=== PATIENT | female | born 1970 | race African-American/Black ===

== ENCOUNTER → 2017-10-03 | Emergency (ER) | payer MEDICAID, OTHER ==
[~2017-10-03] VITALS: Ht 162.6 cm; Wt 90.7 kg
[~2017-10-03] MED LIST: OCUFLOX5 ML OP; [UNRECOGNIZED DRUG - OTHER] OP
[2017-10-03 15:03] VITALS: BP 102/75
[2017-10-03 15:28] VITALS: BP 102/75
--- NOTE | 2017-10-03 22:55 | Emergency Room Report ---
History of Present Illness General Chief Complaint: Eye Problems Source: Patient Present Illness HPI 47 YO Female presents to the ED c/o : Bilateral eye redness, discharge, and increased lacrimation x 2days. Denies loss of vision, visual changes, floaters. Patient reports some mild photophobia. Patient reports having her eyes stuck shut in the mornings when she awakens. She denies recent upper respiratory illness, nasal congestion, fevers, chills, eye trauma or foreign body sensation. She denies contact lens use she states she does use glasses. Denies CP, Palpitations, LOC, AMS, dizziness, Changes in Vision, Sensation, paresthesias, or a sudden severe headache. Allergies: Coded Allergies: PENICILLINS (Verified Allergy, Severe, Rash, 10/03/17) SULFA (SULFONAMIDE ANTIBIOTICS) (Verified Allergy, Severe, Rash, 10/03/17) Patient History Past Medical History: see triage record Past Surgical History: none Pertinent Family History: none Last Menstrual Period: 11-5 Now: No Reviewed Nursing Documentation: PMH: Agreed, PSxH: Agreed Nursing Documentation-PMH Past Medical History: No History, Except For Review of Systems All Other Systems: negative except mentioned in HPI Physical Exam Vital Signs Date Time Temp Pulse Resp B/P (MAP) Pulse Ox O2 Delivery O2 Flow Rate FiO2 10/03/17 14:42 98.1 72 18 102/75 99 Room Air Sp02 EP Interpretation: reviewed, normal General Appearance: no apparent distress, alert, GCS 15, non-toxic Head: normocephalic, atraumatic Eyes: bilateral eye normal inspection, bilateral eye PERRL, bilateral eye EOMI , bilateral eye visual acuity - 20/10, bilateral eye other - purulent d/c with erythema ENT: hearing grossly normal, normal voice Neck: full range of motion, supple/symm/no masses Respiratory: lungs clear, normal breath sounds, speaking full sentences Cardiovascular #1: regular rate, rhythm Musculoskeletal: back normal, gait/station normal, normal range of motion, non- tender Neurologic: alert, oriented x3, responsive, motor strength/tone normal, sensory intact, speech normal Skin: normal color, no rash, warm/dry, well hydrated Lymphatic: no adenopathy Medical Decision Making PA Attestation Dr. Whalen is my supervising Physician whom patient management has been discussed with. Diagnostic Impression: Primary Impression: Bacterial conjunctivitis of both eyes ER Course Pt. presents to the ED c/o : Bilateral eye redness, discharge, and increased lacrimation x 2days Ddx considered but are not limited to: corneal abrasion, acute glaucoma, globe rupture, FB, Corneal Ulcer, conjunctivitis. Iridis, orbital cellulitis,keratitis , sinusitis Vital signs: are WNL, pt. is afebrile H&PE are most consistent with: bacterial conjunctivitis ORDERS: none at this time. ED INTERVENTIONS: none at this time. DISCHARGE: At this time pt. is stable for d/c to home. Will provide printed patient care instructions, and any necessary prescriptions. Care plan and follow up instructions have been discussed with the patient prior to discharge. Last Vital Signs Date Time Temp Pulse Resp B/P (MAP) Pulse Ox O2 Delivery O2 Flow Rate FiO2 10/03/17 15:28 98.1 18 102/75 99 Room Air 10/03/17 14:42 72 Disposition: HOME, SELF-CARE Condition: Stable Scripts Tetrahydrz/Dext 70/Peg 400/Pvp (Visine Advanced Eye Drop) 15 Ml Drops 1 ML OP TID, #15 ML Prov: Kary Saul 10/03/17 Ofloxacin (OCUFLOX) 5 Ml Drops 2 ML OP TID, #5 ML Prov: Kary Saul 10/03/17 Referrals: RUFUS JACQUES,REFERRING (PCP) Departure Forms: Return to Work Return to Work Date: Oct 07, 2017 Work Restrictions: None Return to Full Activity: Oct 07, 2017 Patient Instructions: Bacterial Conjunctivitis Additional Instructions: Take medications as directed. Follow up with an Opthalmologist in 3-5 days, even if your symptoms have resolved. --Please review list of primary care clinics, if you do not already have a primary care provider Return sooner to ED if new symptoms occur, or current symptoms become worse. - Please note that this Emergency Department Report was dictated using BitAccess[employer] technology software, occasionally this can lead to erroneous entry secondary to interpretation by the dictation equipment. Kary Saul Oct 03, 2017 22:55
== END | disposition home or self-care (01) ==
LOC: EMR 14:52
DX: H10.9 Unspecified conjunctivitis (principal); B96.89 Other specified bacterial agents as the cause of diseases classified elsewhere; Z88.0 Allergy status to penicillin; Z88.2 Allergy status to sulfonamides
CPT/HCPCS: 99284

== ENCOUNTER 2018-07-05 19:24 | Emergency (ER) | payer MEDICAID ==
[~2018-07-05] VITALS: Ht 162.6 cm; Wt 93.0 kg
[2018-07-05 21:04] LABS: APPEARANCE,URINE CLEAR; BILIRUBIN, URINE NEGATIVE (NEGATIVE); GLUCOSE, URINE (UA) NEGATIVE (NEGATIVE); KETONES,URINE 1+ (NEGATIVE); LEUKOCYTE ESTERASE ,URINE 1+ (NEGATIVE); NITRITE,URINE NEGATIVE (NEGATIVE); PH,URINE 5 (4.5-8.0); PROTEIN,URINE 1+ (NEGATIVE); UROBILINOGEN,URINE 1 MG/DL (0.0-1.0)
[2018-07-05 21:05] LABS: COLOR,URINE YELLOW
[2018-07-05 22:17] LABS: BASOPHILS % (AUTO) 2.1 % (0.0-2.0); EOSINOPHILS % (AUTO) 4.2 % (0.0-3.0); HEMATOCRIT 36.6 % (37.0-47.0); HEMOGLOBIN 11.6 G/DL (12.0-16.0); LYMPHOCYTES % (AUTO) 50.8 % (20.0-45.0); MEAN CORPUSCULAR VOLUME 72 FL (80-99); PLATELET COUNT 266 K/UL (150-450); RED BLOOD COUNT 5.06 M/UL (4.20-5.40); RED CELL DISTRIBUTION WIDTH 12.2 % (11.6-14.8); WHITE BLOOD COUNT 8.3 K/UL (4.8-10.8)
[2018-07-05 22:22] LABS: ANION GAP 7 mmol/L (5-15); BLOOD UREA NITROGEN 10 mg/dL (7-18); CALCIUM 9.4 MG/DL (8.5-10.1); CARBON DIOXIDE 27 MMOL/L (21-32); CHLORIDE 104 MMOL/L (98-107); POTASSIUM 4.2 MMOL/L (3.5-5.1); SODIUM 138 MMOL/L (136-145)
[2018-07-05 22:30] LABS: ALANINE AMINOTRANSFERASE 27 U/L (12-78); ALBUMIN 3.6 G/DL (3.4-5.0); ALBUMIN/GLOBULIN RATIO 0.8 (1.0-2.7); ALKALINE PHOSPHATASE 112 U/L (46-116); ASPARTATE AMINO TRANSFERASE 16 U/L (15-37); BILIRUBIN,TOTAL 0.3 MG/DL (0.2-1.0)
--- NOTE | 2018-07-05 22:30 | Emergency Room Report ---
History of Present Illness General Chief Complaint: Female Urogenital Problems Source: Patient Present Illness HPI Patient presents with abnormal vaginal bleeding. This for at least 2 months. Mostly it has been spotting. Occasionally bleeding slightly more heavy. No clots. No fevers. Unsure if . Has sweats occasionally at night. No documented fevers. No dysuria. She's had some lower abdominal cramping. Pain rated 4/10, mostly constant. No dysuria. Had pelvic by nurse practitioner March. Was told everything "normal". Seen by her clinic and sent here to exclude symptomatic anemia. No MEDINA, headaches, dizziness, chest pain. 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 Period: 06/16 Reviewed Nursing Documentation: PMH: Agreed; PSxH: Agreed Nursing Documentation-PMH Past Medical History: No Stated History Review of Systems All Other Systems: negative except mentioned in HPI Physical Exam Vital Signs Date Time Temp Pulse Resp B/P (MAP) Pulse Ox O2 Delivery O2 Flow Rate FiO2 07/05/18 19:49 99.1 65 16 111/72 98 Room Air 99.1 Sp02 EP Interpretation: reviewed, normal General Appearance: well appearing, no apparent distress, GCS 15 Eyes: right eye other - post surgical changes ENT: moist mucus membranes Neck: supple Respiratory: lungs clear, normal breath sounds Cardiovascular #1: regular rate, rhythm Cardiovascular #2: 2+ radial (R) Gastrointestinal: soft, no mass, no guarding, no rebound, tenderness - reported Genitourinary: no CVA tenderness, deferred - for ultrasound Musculoskeletal: back normal, digits/nails normal, gait/station normal, normal range of motion Neurologic: oriented x3, grossly normal - except for R eye Psychiatric: mood/affect normal Skin: normal color, no rash, warm/dry Medical Decision Making Diagnostic Impression: Primary Impression: DUB (dysfunctional uterine bleeding) Additional Impression: Fibroids Qualified Codes: D25.9 - Leiomyoma of uterus, unspecified ER Course Patient with abnormal vaginal bleeding and lower abdominal pain for 2 months. DDx: , ectopic, DUB, fibroid, tumor, UTI amongst others. Evaluation with labs. Initial consideration for pelvic, then decision for ultrasound as would be more diagnostic. Treatment with tylenol. Preg neg. Slight anemia (microcytic indices). CMP, UA, coags normal. Ultrasound with multiple fibroids. Patient improved. Discussed findings and need to follow up with her [facility]. Patient stable for outpatient observation and treatment. Laboratory Tests Test 07/05/18 20:41 07/05/18 21:50 Urine Color Yellow Urine Appearance Clear Urine pH 5 (4.5-8.0) Urine Specific [place] 1.020 (1.005-1.035) Urine Protein 1+ (NEGATIVE) H Urine Glucose (UA) Negative (NEGATIVE) Urine Ketones 1+ (NEGATIVE) H Urine Blood 5+ (NEGATIVE) H Urine Nitrite Negative (NEGATIVE) Urine Bilirubin Negative (NEGATIVE) Urine Urobilinogen 1 MG/DL (0.0-1.0) H Urine Leukocyte Esterase 1+ (NEGATIVE) H Urine RBC 0-2 /HPF (0 - 2) Urine WBC 2-4 /HPF (0 - 2) Urine Squamous Epithelial Cells Few /LPF (NONE/OCC) Urine Bacteria Few /HPF (NONE) Urine HCG, Qualitative Negative (NEGATIVE) White Blood Count 8.3 K/UL (4.8-10.8) Red Blood Count 5.06 M/UL (4.20-5.40) Hemoglobin 11.6 G/DL (12.0-16.0) L Hematocrit 36.6 % (37.0-47.0) L Mean Corpuscular Volume 72 FL (80-99) L Mean Corpuscular Hemoglobin 22.8 PG (27.0-31.0) L Mean Corpuscular Hemoglobin Concent 31.6 G/DL (32.0-36.0) L Red Cell Distribution Width 12.2 % (11.6-14.8) Platelet Count 266 K/UL (150-450) Mean Platelet Volume 10.0 FL (6.5-10.1) Neutrophils (%) (Auto) 38.0 % (45.0-75.0) L Lymphocytes (%) (Auto) 50.8 % (20.0-45.0) H Monocytes (%) (Auto) 5.0 % (1.0-10.0) Eosinophils (%) (Auto) 4.2 % (0.0-3.0) H Basophils (%) (Auto) 2.1 % (0.0-2.0) H Prothrombin Time 10.4 SEC (9.30-11.50) Prothrombin Time INR 1.0 (0.9-1.1) PTT 33 SEC (23-33) Sodium Level 138 MMOL/L (136-145) Potassium Level 4.2 MMOL/L (3.5-5.1) Chloride Level 104 MMOL/L (98-107) Carbon Dioxide Level 27 MMOL/L (21-32) Anion Gap 7 mmol/L (5-15) Blood Urea Nitrogen 10 mg/dL (7-18) Creatinine 1.0 MG/DL (0.55-1.30) Estimate Glomerular Filtration Rate > 60 mL/min (>60) Glucose Level 99 MG/DL (74-106) Calcium Level 9.4 MG/DL (8.5-10.1) Total Bilirubin 0.3 MG/DL (0.2-1.0) Aspartate Amino Transferase (AST) 16 U/L (15-37) Alanine Aminotransferase (ALT) 27 U/L (12-78) Alkaline Phosphatase 112 U/L (46-116) Total Protein 8.0 G/DL (6.4-8.2) Albumin 3.6 G/DL (3.4-5.0) Globulin 4.4 g/dL Albumin/Globulin Ratio 0.8 (1.0-2.7) L Lipase 137 U/L (73-393) Last Vital Signs Date Time Temp Pulse Resp B/P (MAP) Pulse Ox O2 Delivery O2 Flow Rate FiO2 07/05/18 23:15 98.9 72 16 110/71 98 Room Air 98.9 Status: improved Disposition: HOME, SELF-CARE Condition: Improved Referrals: RUFUS JACQUESREFERRING (PCP) Hair Marie M.D. Jul 05, 2018 22:29
[2018-07-05 23:05] VITALS: BP 110/71
[2018-07-05 23:15] VITALS: BP 110/71
--- NOTE | 2018-07-06 08:48 | Diagnostic Imaging Report ---
Indication: Pelvic pain, negative urine test Technique: Transabdominal and transvaginal images Comparison: none Findings: Uterus measures 10.6 cm length by 5.5 cm AP. The endometrium measures 7 mm thick. Multiple fibroids are seen within the myometrium, measuring up to 3.5 cm in diameter. Small nabothian cysts are seen in the cervix. The left ovary measures 2.6 cm in length. The right ovary measures 3 cm in length. Impression: Multiple uterine fibroids Otherwise unremarkable This agrees with the preliminary interpretation provided overnight by [facility] teleradiology service.
== END 2018-07-05 23:10 | disposition home or self-care (01) ==
LOC: EMR 21:09
DX: N93.8 Other specified abnormal uterine and vaginal bleeding (principal); D25.9 Leiomyoma of uterus, unspecified
CPT/HCPCS: 36415; 76830; 76856; 80053; 81003; 81025; 83690; 85025; 85610; 85730; 86850; 86900; 86901; 99284

== ENCOUNTER 2019-06-07 13:16 | Emergency (ER) | payer MEDICAID ==
[~2019-06-07] VITALS: Ht 162.6 cm; Wt 95.3 kg
--- NOTE | 2019-06-07 13:20 | NUR ---
ED Nurse Note: pt walked in due to dizziness and almost syncope, pt stated she is been having her menstruation since 25 days ago and still ahs it now. pt denies pain. will continue to monitor.
[2019-06-07 13:40] VITALS: BP 110/74
--- NOTE | 2019-06-07 14:20 | NUR ---
ED Nurse Note: pt able to give urine sample, iv stablished on the right ac, blood drawn and was sent to lab. will continue to monitor
--- NOTE | 2019-06-07 14:25 | NUR ---
ED Nurse Note: xray on bedside
[2019-06-07 14:43] LABS: APPEARANCE,URINE CLEAR; BILIRUBIN, URINE NEGATIVE (NEGATIVE); COLOR,URINE PALE YELLOW; GLUCOSE, URINE (UA) NEGATIVE (NEGATIVE); KETONES,URINE NEGATIVE (NEGATIVE); LEUKOCYTE ESTERASE ,URINE NEGATIVE (NEGATIVE); NITRITE,URINE NEGATIVE (NEGATIVE); PH,URINE 5 (4.5-8.0); PROTEIN,URINE NEGATIVE (NEGATIVE); UROBILINOGEN,URINE NORMAL MG/DL (0.0-1.0)
--- NOTE | 2019-06-07 14:46 | Diagnostic Imaging Report ---
Indication: Abdominal pain Technique: One view of the chest Comparison: none Findings: Lungs and pleural spaces are clear. Heart size is normal. Impression: No acute process
[2019-06-07 14:53] LABS: ANION GAP 8 mmol/L (5-15); BASOPHILS % (AUTO) 1.5 % (0.0-2.0); BLOOD UREA NITROGEN 5 mg/dL (7-18); CALCIUM 9.2 MG/DL (8.5-10.1); CARBON DIOXIDE 26 MMOL/L (21-32); CHLORIDE 105 MMOL/L (98-107); EOSINOPHILS % (AUTO) 1.4 % (0.0-3.0); HEMATOCRIT 27.7 % (37.0-47.0); HEMOGLOBIN 8.3 G/DL (12.0-16.0); LYMPHOCYTES % (AUTO) 40.9 % (20.0-45.0); MEAN CORPUSCULAR VOLUME 65 FL (80-99); MONOCYTES % (AUTO) 4.8 % (1.0-10.0); NEUTROPHILS % (AUTO) 51.4 % (45.0-75.0); PLATELET COUNT 309 K/UL (150-450); POTASSIUM 4.2 MMOL/L (3.5-5.1); RED BLOOD COUNT 4.23 M/UL (4.20-5.40); SODIUM 138 MMOL/L (136-145)
[2019-06-07 14:55] LABS: INR 0.9 (0.9-1.1)
[2019-06-07 14:58] LABS: ALANINE AMINOTRANSFERASE 11 U/L (12-78); ALBUMIN 3.5 G/DL (3.4-5.0); ALBUMIN/GLOBULIN RATIO 0.9 (1.0-2.7); ALKALINE PHOSPHATASE 110 U/L (46-116); ASPARTATE AMINO TRANSFERASE 14 U/L (15-37); BILIRUBIN,TOTAL 0.4 MG/DL (0.2-1.0)
--- NOTE | 2019-06-07 15:25 | Emergency Room Report ---
History of Present Illness General Chief Complaint: Female Urogenital Problems Source: Patient Present Illness HPI This patient states she has a history of fibroids. She states that she was offered a hysterectomy versus an ablation. She states she was unable to make a decision and did not get anything done. She has a long history of heavy bleeding related to fibroids. She states that she has had ongoing bleeding for the past month. She states over the past week she has felt very fatigued and has had less exercise tolerance. She states that she had 2 episodes of chest pain with shortness of breath. She states one episode was last week and one episode was yesterday. She denies recent illness. She denies fever chills. She denies nausea or vomiting. She has no other complaints. Allergies: Coded Allergies: PENICILLINS (Verified Allergy, Severe, Rash, 10/03/17) SULFA (SULFONAMIDE ANTIBIOTICS) (Verified Allergy, Severe, Rash, 10/03/17) Patient History Past Medical History: see triage record, other - uterine fibroids. Social History: Denies: smoking, alcohol use, drug use Last Menstrual Period: 05/11/19 Reviewed Nursing Documentation: PMH: Agreed; PSxH: Agreed Nursing Documentation-PMH Past Medical History: No History, Except For Review of Systems All Other Systems: negative except mentioned in HPI Physical Exam Vital Signs Date Time Temp Pulse Resp B/P (MAP) Pulse Ox O2 Delivery O2 Flow Rate FiO2 06/07/19 13:29 97.5 63 17 110/74 (86) 100 Room Air Sp02 EP Interpretation: reviewed, normal General Appearance: no apparent distress, alert, GCS 15, non-toxic Head: normocephalic, atraumatic Eyes: bilateral eye conjunctivae pale ENT: hearing grossly normal, normal pharynx, no angioedema, normal voice Neck: full range of motion, supple/symm/no masses Respiratory: chest non-tender, lungs clear, normal breath sounds, no respiratory distress, no retraction, no accessory muscle use, speaking full sentences Cardiovascular #1: regular rate, rhythm, no edema Gastrointestinal: normal bowel sounds, non tender, soft, non-distended, no guarding, no rebound Rectal: deferred Musculoskeletal: back normal, gait/station normal, normal range of motion, non- tender Neurologic: alert, oriented x3, responsive, motor strength/tone normal, sensory intact, speech normal Psychiatric: judgement/insight normal, memory normal, mood/affect normal, no suicidal/homicidal ideation Skin: no rash, well hydrated Medical Decision Making Diagnostic Impression: Primary Impression: DUB (dysfunctional uterine bleeding) Additional Impressions: Fibroids Anemia ER Course This patient has known dysfunctional uterine bleeding related to fibroids. She is anemic. She is borderline hemoglobin/hematocrit for blood transfusion. Given the ongoing bleeding, I felt that this patient will likely continue to become more anemic and so I did offer this patient blood transfusion but she declined at this time. I did instruct the patient to obtain [id number] iron and vitamin C. She was also instructed to follow-up with her [facility] physician for definitive treatment of her bleeding fibroids. She is not currently actively bleeding and there was no evidence of cardiac ischemia or ME. Overall, the patient's evaluation was benign. The patient is given close return precautions and follow-up instructions. Laboratory Tests Test 06/07/19 14:18 White Blood Count 8.0 K/UL (4.8-10.8) Red Blood Count 4.23 M/UL (4.20-5.40) Hemoglobin 8.3 G/DL (12.0-16.0) L Hematocrit 27.7 % (37.0-47.0) L Mean Corpuscular Volume 65 FL (80-99) L Mean Corpuscular Hemoglobin 19.7 PG (27.0-31.0) L Mean Corpuscular Hemoglobin Concent 30.1 G/DL (32.0-36.0) L Red Cell Distribution Width 15.0 % (11.6-14.8) H Platelet Count 309 K/UL (150-450) Mean Platelet Volume 8.4 FL (6.5-10.1) Neutrophils (%) (Auto) 51.4 % (45.0-75.0) Lymphocytes (%) (Auto) 40.9 % (20.0-45.0) Monocytes (%) (Auto) 4.8 % (1.0-10.0) Eosinophils (%) (Auto) 1.4 % (0.0-3.0) Basophils (%) (Auto) 1.5 % (0.0-2.0) Prothrombin Time 10.1 SEC (9.30-11.50) Prothrombin Time INR 0.9 (0.9-1.1) PTT 31 SEC (23-33) Urine Color Pale yellow Urine Appearance Clear Urine pH 5 (4.5-8.0) Urine Specific [place] 1.025 (1.005-1.035) Urine Protein Negative (NEGATIVE) Urine Glucose (UA) Negative (NEGATIVE) Urine Ketones Negative (NEGATIVE) Urine Blood Negative (NEGATIVE) Urine Nitrite Negative (NEGATIVE) Urine Bilirubin Negative (NEGATIVE) Urine Urobilinogen Normal MG/DL (0.0-1.0) Urine Leukocyte Esterase Negative (NEGATIVE) Urine HCG, Qualitative Negative (NEGATIVE) Sodium Level 138 MMOL/L (136-145) Potassium Level 4.2 MMOL/L (3.5-5.1) Chloride Level 105 MMOL/L (98-107) Carbon Dioxide Level 26 MMOL/L (21-32) Anion Gap 8 mmol/L (5-15) Blood Urea Nitrogen 5 mg/dL (7-18) L Creatinine 1.0 MG/DL (0.55-1.30) Estimate Glomerular Filtration Rate > 60 mL/min (>60) Glucose Level 86 MG/DL (74-106) Calcium Level 9.2 MG/DL (8.5-10.1) Total Bilirubin 0.4 MG/DL (0.2-1.0) Aspartate Amino Transferase (AST) 14 U/L (15-37) L Alanine Aminotransferase (ALT) 11 U/L (12-78) L Alkaline Phosphatase 110 U/L (46-116) Troponin I 0.000 ng/mL (0.000-0.056) Total Protein 7.3 G/DL (6.4-8.2) Albumin 3.5 G/DL (3.4-5.0) Globulin 3.8 g/dL Albumin/Globulin Ratio 0.9 (1.0-2.7) L Lipase 108 U/L (73-393) EKG Diagnostic Results Rate: bradycardiac Rhythm: other - S.madonna ST Segments: no acute changes Rhythm Strip Diag. Results EP Interpretation: yes Rate: 50's Rhythm: no PVC's, no ectopy, other - S.madonna Chest X-Ray Diagnostic Results Chest X-Ray Diagnostic Results : Chest X-Ray Ordered: Yes # of Views/Limited/Complete: 1 View Indication: Chest Pain EP Interpretation: Yes Interpretation: no consolidation, no effusion, no pneumothorax, no acute cardiopulmonary disease Impression: No acute disease Electronically Signed by: Coni Anderson DO Last Vital Signs Date Time Temp Pulse Resp B/P (MAP) Pulse Ox O2 Delivery O2 Flow Rate FiO2 06/07/19 13:29 97.5 63 17 110/74 (86) 100 Room Air Status: improved Disposition: HOME, SELF-CARE Condition: Improved Coni Anderson DO Jun 07, 2019 15:25
[2019-06-07 15:44] VITALS: BP 110/74
--- NOTE | 2019-06-07 15:44 | NUR ---
ER DISCHARGE NOTE: Patient is cleared to be discharged per ERMD, pt is aox4, on room air, with stable vital signs. pt was given dc and prescription instructions, pt was able to verbalize understanding, pt id band and iv site removed without complications. pt is able to ambulate with steady gait. pt took all belongings.
--- NOTE | 2019-06-08 13:27 | Cardiology Report ---
APPROVED REPORT EKG Measurement Heart [id number] Sinus bradycardia Low voltage QRS Cannot rule out Anterior infarct, age undetermined Abnormal ECG
== END 2019-06-07 15:44 | disposition home or self-care (01) ==
LOC: EMR 14:32
DX: N93.8 Other specified abnormal uterine and vaginal bleeding (principal); D25.9 Leiomyoma of uterus, unspecified; D64.9 Anemia, unspecified; Z88.0 Allergy status to penicillin; Z88.2 Allergy status to sulfonamides
CPT/HCPCS: 36415; 71045; 80053; 81003; 81025; 83690; 84484; 85025; 85610; 85730; 86850; 86900; 86901; 93005; 99283

== ENCOUNTER 2021-01-13 00:03 | Inpatient (IN) | payer MEDICAID ==
[2021-01-13] VITALS (10 sets, daily range): BP systolic 95–120; BP diastolic 51–85
[~2021-01-13] VITALS: Ht 162.6 cm; Wt 76.7 kg
--- NOTE | 2021-01-13 00:42 | Emergency Room Report ---
History of Present Illness General Chief Complaint: General Complaint Source: Patient Present Illness HPI Disclaimer: Please note that this report is being documented using DRAGON technology. This can lead to erroneous entry secondary to incorrect interpretation by the dictating instrument. HPI: 50-year-old female presents for weakness and hematuria. Patient reports she has a history of uterine fibroids since 2018. No longer follows with OPTOMETRY TEACHER. States she discussed ablation and hysterectomy at one point but did not follow-up on this. History of recurrent anemia as well requiring transfusions. She was at [facility] last month requiring transfusion for low hemoglobin reportedly 3.9. She reports several days of hematuria with mild dysuria. Denies vaginal bleeding otherwise. Not taking the prescribed iron supplements. She was taking medroxyprogesterone after her last ER visit. She reports generalized weakness and sometimes rapid heart rate when rising from a seated position or taking long walks. Denies chest pain, shortness of breath, nausea, vomiting, diarrhea, melena or hematochezia. Denies fever or chills. 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 Patient History Last Menstrual Period: n/a Nursing Documentation-PMH Past Medical History: No History, Except For Review of Systems All Other Systems: negative except mentioned in HPI Physical Exam Vital Signs Date Time Temp Pulse Resp B/P (MAP) Pulse Ox O2 Delivery O2 Flow Rate FiO2 01/13/21 00:12 97.9 86 18 85/49 (61) 98 Room Air General: Awake and alert, no acute distress HEENT: NC/AT. EOMI. Cardiovascular: RRR. S1 and S2 normal. No murmur appreciated Resp: Normal work of breathing. No cough, wheezing or crackles appreciated Abdomen: Abdomen is soft, nondistended. Nontender Rectal: No external hemorrhoids, no palpable internal hemorrhoids. No melena, no bright blood. Firm stool in vault. Skin: Intact. No abrasions, laceration or rash over the exposed skin MSK: Normal tone and bulk. Moving all extremities. No obvious deformity. Neuro: Awake and alert. Mentating appropriately. Procedures Critical Care Time Critical Care Time Total critical care time: Approximately 45 minutes Due to a high probability of clinically significant, life threatening deterioration, the patient required the highest level of preparedness to intervene emergently and I personally spent this critical care time directly and personally managing the patient. This critical care time included obtaining a history, examining the patient, pulse oximetry, ordering and reviewing studies, ordering treatments, evaluating response to treatment and updating management plan as needed, frequent reassessment and discussion with other providers as well as arranging for ultimate disposition. This critical to care time was performed to assess and manage the high probability of life-threatening deterioration that could result in multiorgan failure. This critical care time is separate from the separately billable procedures and treating other patients. Medical Decision Making Diagnostic Impression: Primary Impression: Anemia Additional Impressions: UTI (urinary tract infection) Hypokalemia ER Course 50-year-old female history of uterine fibroids presents for weakness and hematuria. Differential includes was not limited to symptomatic anemia, dysfunctional uterine bleeding, UTI, GI bleed among others. Hemoglobin returned critically low at 5.4. Potassium also low at 2.7. Patient will be transfused and given IV and oral potassium. Also require ceftriaxone for urinary tract infection. Troponin negative. FOBT negative. Patient is capitated to [facility]. Accepted by Dr. Valentin. Patient antibody screen returned positive. Deemed unstable for transfer by capitated facility as we could not begin transfusion prior to transfer and therefore patient is approved for admission here. IV and oral potassium as well as Rocephin have been given. Admitted to panel physician, Dr. Garcia Laboratory Tests Test 01/13/21 00:29 01/13/21 01:07 White Blood Count 13.5 K/UL (4.8-10.8) H Red Blood Count 3.55 M/UL (4.20-5.40) L Hemoglobin 5.4 G/DL (12.0-16.0) *L Hematocrit 19.0 % (37.0-47.0) L Mean Corpuscular Volume 53 FL (80-99) L Mean Corpuscular Hemoglobin 15.1 PG (27.0-31.0) L Mean Corpuscular Hemoglobin Concent 28.3 G/DL (32.0-36.0) L Red Cell Distribution Width 26.8 % (11.6-14.8) H Platelet Count 428 K/UL (150-450) Mean Platelet Volume 9.8 FL (6.5-10.1) Neutrophils (%) (Auto) % (45.0-75.0) Lymphocytes (%) (Auto) % (20.0-45.0) Monocytes (%) (Auto) % (1.0-10.0) Eosinophils (%) (Auto) % (0.0-3.0) Basophils (%) (Auto) % (0.0-2.0) Prothrombin Time 10.7 SEC (9.30-11.50) Prothrombin Time INR 1.0 (0.9-1.1) Activated Partial Thromboplast Time 27 SEC (23-33) Sodium Level 140 MMOL/L (136-145) Potassium Level 2.7 MMOL/L (3.5-5.1) *L Chloride Level 104 MMOL/L (98-107) Carbon Dioxide Level 21 MMOL/L (21-32) Anion Gap 14 mmol/L (5-15) Blood Urea Nitrogen 14 mg/dL (7-18) Creatinine 1.9 MG/DL (0.55-1.30) H Estimated Glomerular Filtration Rate 34.1 mL/min (>60) Glucose Level 124 MG/DL (74-106) H Calcium Level 8.9 MG/DL (8.5-10.1) Iron Level Pending Unsaturated Iron Binding Pending Total Bilirubin 1.9 MG/DL (0.2-1.0) H Direct Bilirubin 0.5 MG/DL (0.0-0.3) H Aspartate Amino Transferase (AST) 63 U/L (15-37) H Alanine Aminotransferase (ALT) 28 U/L (12-78) Alkaline Phosphatase 78 U/L (46-116) Troponin I 0.000 ng/mL (0.000-0.056) Total Protein 8.3 G/DL (6.4-8.2) H Albumin 3.7 G/DL (3.4-5.0) Globulin 4.6 g/dL Albumin/Globulin Ratio 0.8 (1.0-2.7) L Urine Color Valerie Urine Appearance Cloudy Urine pH 5 (4.5-8.0) Urine Specific [place] 1.015 (1.005-1.035) Urine Protein 3+ (NEGATIVE) H Urine Glucose (UA) Negative (NEGATIVE) Urine Ketones 2+ (NEGATIVE) H Urine Blood 5+ (NEGATIVE) H Urine Nitrite Positive (NEGATIVE) H Urine Bilirubin 1+ (NEGATIVE) H Urine Ictotest Positive (NEGATIVE) Urine Urobilinogen 4 MG/DL (0.0-1.0) H Urine Leukocyte Esterase 2+ (NEGATIVE) H Urine RBC 30-40 /HPF (0 - 2) H Urine WBC 20-30 /HPF (0 - 2) H Urine Squamous Epithelial Cells Many /LPF (NONE/OCC) H Urine Amorphous Sediment Many /LPF (NONE) H Urine Bacteria Many /HPF (NONE) H Urine HCG, Qualitative Negative (NEGATIVE) Stool Occult Blood Negative (NEGATIVE) EKG Diagnostic Results Troponin ordered: Yes When was troponin ordered?: Jan 13, 2021 EKG Time: 00:22 Rate: normal Rhythm: NSR ST Segments: no acute changes Other Impression Sinus rhythm, normal axis, normal intervals, no ST segment changes. Rhythm Strip Diag. Results Rhythm Strip Time: 00:22 EP Interpretation: yes Rate: 70s Rhythm: NSR, no PVC's, no ectopy Last Vital Signs Date Time Temp Pulse Resp B/P (MAP) Pulse Ox O2 Delivery O2 Flow Rate FiO2 01/13/21 00:35 97.9 18 100/74 98 Room Air 01/13/21 00:35 86 Disposition: ADMITTED INPATIENT Condition: Stable Referrals: NON PHYSICIAN (PCP) Larry De Luna MD Jan 13, 2021 00:42
[2021-01-13 00:50] LABS: MEAN CORPUSCULAR VOLUME 53 FL (80-99); PLATELET COUNT 428 K/UL (150-450); RED BLOOD COUNT 3.55 M/UL (4.20-5.40); RED CELL DISTRIBUTION WIDTH 26.8 % (11.6-14.8); WHITE BLOOD COUNT 13.5 K/UL (4.8-10.8)
[2021-01-13 00:54] LABS: HEMOGLOBIN 5.4 G/DL (12.0-16.0)
[2021-01-13 01:42] LABS: APPEARANCE,URINE CLOUDY; BILIRUBIN, URINE 1+ (NEGATIVE); COLOR,URINE AMBER; GLUCOSE, URINE (UA) NEGATIVE (NEGATIVE); KETONES,URINE 2+ (NEGATIVE); LEUKOCYTE ESTERASE ,URINE 2+ (NEGATIVE); NITRITE,URINE POSITIVE (NEGATIVE); PH,URINE 5 (4.5-8.0); PROTEIN,URINE 3+ (NEGATIVE); UROBILINOGEN,URINE 4 MG/DL (0.0-1.0)
[2021-01-13 01:43] LABS: ALBUMIN 3.7 G/DL (3.4-5.0); ALBUMIN/GLOBULIN RATIO 0.8 (1.0-2.7); BILIRUBIN,TOTAL 1.9 MG/DL (0.2-1.0); CALCIUM 8.9 MG/DL (8.5-10.1); CREATININE 1.9 MG/DL (0.55-1.30)
[2021-01-13 01:45] LABS: POTASSIUM 2.7 MMOL/L (3.5-5.1)
[2021-01-13] MEDS ORDERED: cefTRIAXone 1 GM in NS 55 ML IVPB ONE (01:45)
[2021-01-13 01:46] LABS: BILIRUBIN,DIRECT 0.5 MG/DL (0.0-0.3)
[2021-01-13 01:58] LABS: % IRON SATURATION 33 % (15-50); IRON 119 ug/dL (50-175); TOTAL IRON BINDING CAPACITY 359 ug/dL (250-450)
--- NOTE | 2021-01-13 06:23 | Consultation ---
History of Present Illness General Chief Complaint: General Complaint Present Illness Allergies: Coded Allergies: PENICILLINS (Verified Allergy, Severe, Rash, 10/03/17) SULFA (SULFONAMIDE ANTIBIOTICS) (Verified Allergy, Severe, Rash, 10/03/17) Medication History Scheduled Ofloxacin (Ocuflox), 2 ML OP TID Tetrahydrz/Dext 70/Peg 400/Pvp (Visine Advanced Eye Drop), 1 ML OP TID Patient History Healthcare decision maker Resuscitation status Advanced Directive on File Physical Exam Last 24 Hour Vital Signs Date Time Temp Pulse Resp B/P (MAP) Pulse Ox O2 Delivery O2 Flow Rate FiO2 01/13/21 05:05 Room Air 01/13/21 04:21 97.9 86 16 98/61 100 Room Air 01/13/21 03:25 97.9 18 107/60 100 Room Air 01/13/21 02:09 97.9 18 106/64 98 Room Air 01/13/21 01:08 97.9 18 100/61 98 Room Air 01/13/21 00:35 97.9 18 100/74 98 Room Air 01/13/21 00:35 86 18 Room Air 01/13/21 00:12 97.9 86 18 85/49 (61) 98 Room Air Intake and Output 01/12/21 01/13/21 19:00 07:00 Intake Total 0 ml Balance 0 ml Intake Oral 0 ml Laboratory Tests Test 01/13/21 00:29 01/13/21 01:07 White Blood Count 13.5 K/UL (4.8-10.8) H Red Blood Count 3.55 M/UL (4.20-5.40) L Hemoglobin 5.4 G/DL (12.0-16.0) *L Hematocrit 19.0 % (37.0-47.0) L Mean Corpuscular Volume 53 FL (80-99) L Mean Corpuscular Hemoglobin 15.1 PG (27.0-31.0) L Mean Corpuscular Hemoglobin Concent 28.3 G/DL (32.0-36.0) L Red Cell Distribution Width 26.8 % (11.6-14.8) H Platelet Count 428 K/UL (150-450) Mean Platelet Volume 9.8 FL (6.5-10.1) Neutrophils (%) (Auto) % (45.0-75.0) Lymphocytes (%) (Auto) % (20.0-45.0) Monocytes (%) (Auto) % (1.0-10.0) Eosinophils (%) (Auto) % (0.0-3.0) Basophils (%) (Auto) % (0.0-2.0) Prothrombin Time 10.7 SEC (9.30-11.50) Prothromb Time International Ratio 1.0 (0.9-1.1) Activated Partial Thromboplast Time 27 SEC (23-33) Sodium Level 140 MMOL/L (136-145) Potassium Level 2.7 MMOL/L (3.5-5.1) *L Chloride Level 104 MMOL/L (98-107) Carbon Dioxide Level 21 MMOL/L (21-32) Anion Gap 14 mmol/L (5-15) Blood Urea Nitrogen 14 mg/dL (7-18) Creatinine 1.9 MG/DL (0.55-1.30) H Estimat Glomerular Filtration Rate 34.1 mL/min (>60) Glucose Level 124 MG/DL (74-106) H Calcium Level 8.9 MG/DL (8.5-10.1) Iron Level 119 ug/dL (50-175) Total Iron Binding Capacity 359 ug/dL (250-450) Percent Iron Saturation 33 % (15-50) Unsaturated Iron Binding 240 ug/dL (112-346) Total Bilirubin 1.9 MG/DL (0.2-1.0) H Direct Bilirubin 0.5 MG/DL (0.0-0.3) H Aspartate Amino Transf (AST/SGOT) 63 U/L (15-37) H Alanine Aminotransferase (ALT/SGPT) 28 U/L (12-78) Alkaline Phosphatase 78 U/L (46-116) Troponin I 0.000 ng/mL (0.000-0.056) Total Protein 8.3 G/DL (6.4-8.2) H Albumin 3.7 G/DL (3.4-5.0) Globulin 4.6 g/dL Albumin/Globulin Ratio 0.8 (1.0-2.7) L Urine Color Valerie Urine Appearance Cloudy Urine pH 5 (4.5-8.0) Urine Specific [place] 1.015 (1.005-1.035) Urine Protein 3+ (NEGATIVE) H Urine Glucose (UA) Negative (NEGATIVE) Urine Ketones 2+ (NEGATIVE) H Urine Blood 5+ (NEGATIVE) H Urine Nitrite Positive (NEGATIVE) H Urine Bilirubin 1+ (NEGATIVE) H Urine Ictotest Positive (NEGATIVE) Urine Urobilinogen 4 MG/DL (0.0-1.0) H Urine Leukocyte Esterase 2+ (NEGATIVE) H Urine RBC 30-40 /HPF (0 - 2) H Urine WBC 20-30 /HPF (0 - 2) H Urine Squamous Epithelial Cells Many /LPF (NONE/OCC) H Urine Amorphous Sediment Many /LPF (NONE) H Urine Bacteria Many /HPF (NONE) H Urine HCG, Qualitative Negative (NEGATIVE) Stool Occult Blood Negative (NEGATIVE) Height (Feet): 5 Height (Inches): 4.00 Weight (Pounds): 169 Medications Current Medications Medications (Trade) Dose Ordered Sig/Jacquelin Route PRN Reason Start Time Stop Time Status Last Admin Dose Admin Acetaminophen (Tylenol) 650 mg PRN PRN ORAL Mild Pain (Pain Scale 1-3) 01/13/21 05:00 Ibuprofen (Motrin) 600 mg PRN PRN ORAL Mild Pain (Pain Scale 1-3) 01/13/21 05:00 Ondansetron HCl (Zofran) 4 mg PRN PRN IVP Nausea & Vomiting 01/13/21 05:00 Assessment/Plan Assessment/Plan: Hematology Consultation CHRISTY MD: Jose Agudelo RFC: Anemia ongoing DOS: 01/13/2021 HPI: 50-year-old female presents for weakness and hematuria. Patient reports she has a history of uterine fibroids since 2018. No longer follows with ONLINE PROJECT MANAGER. States she discussed ablation and hysterectomy at one point but did not follow-up on this. History of recurrent anemia as well requiring transfusions. She was at [facility] last month requiring transfusion for low hemoglobin re portedly 3.9. She reports several days of hematuria with mild dysuria. Denies vaginal bleeding otherwise. Not taking the prescribed iron supplements. She was taking medroxyprogesterone after her last ER visit. She reports generalized weakness and sometimes rapid heart rate when rising from a seated position or taking long walks. Denies chest pain, shortness of breath, nausea, vomiting, diarrhea, melena or hematochezia. Denies fever or chills. To see a director of hotel today. 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 EOMI. Cardiovascular: RRR. S1 and S2 normal. No murmur appreciated Resp: Normal work of breathing. No cough, wheezing or crackles appreciated Abdomen: Abdomen is soft, nondistended. Nontender Rectal: No external hemorrhoids, no palpable internal hemorrhoids. ++ Firm stool in vault. Skin: Intact. No abrasions, laceration or rash over the exposed skin MSK: Normal tone and bulk. Moving all extremities Neuro: Awake and alert. Mentating appropriately. Labs; reviewed Imaging: reviewed Assessment and Recs # Anemia of iron deficiency with a history of heavy menstruation with uterine fibroids --> to see director of hotel while here -> in the past recommend at [facility], may still need procedure -> anemia panel reviewed --> started on iv iron --> occult was negative # Leukocytosis likely due to reactive process --> wbc 16 --> continue on abx --> smear has been reviewed # UTI (urinary tract infection) --> continue for abx ctx # Hypokalemia --> replete with k # Dvt ppx scds Appreciate consultation and dw Geoffrey Hammonds MD Jan 13, 2021 06:23
[2021-01-13] MEDS ORDERED: PROVERA10 MG ORAL (06:36)
--- NOTE | 2021-01-13 09:32 | Consultation ---
Consult Note Consult Note I am asked to evaluate the patient at the request of Dr. Agudelo for abnormal electrolytes Chief Complaint: General Complaints HPI: 50-year-old female presents for weakness and hematuria. Patient reports she has a history of uterine fibroids since 2018. No longer follows with O B/COLLEGE ADMINISTRATOR. States she discussed ablation and hysterectomy at one point but did not follow-up on this. History of recurrent anemia as well requiring transfusions. She was at [facility] last month requiring transfusion for low hemoglobin reportedly 3.9. She reports several days of hematuria with mild dysuria. Denies vaginal bleeding otherwise. Not taking the prescribed iron supplements. She was taking medroxyprogesterone after her last ER visit. She reports generalized weakness and sometimes rapid heart rate when rising from a seated position or taking long walks. Denies chest pain, shortness of breath, nausea, vomiting, diarrhea, melena or hematochezia. Denies fever or chills. 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 GENERAL APPEARANCE: Seems to have normal weight. HEAD AND NECK: Severely decreased vision in right eye. HEART: Normal rate. LUNGS: Clear. ABDOMEN: Soft, nontender. EXTREMITIES: No edema. NEUROLOGIC: She is awake, alert, oriented x3. LABORATORY DATA: UA showed wbc's of 20 to 30, rbc's of 30 to 40, leukocyte esterase 2+, nitrite positive, blood 5+. Sodium 145, potassium 3.3, potassium at the time of admission was 2.7, chloride 112, bicarb 22, BUN 11, creatinine 1.7. Stool occult blood was negative. . Assessment/Plan Hypokalemia Severe anemia UTI History of uterine fibroid History of retinoblastoma Potassium supplement Monitor renal parameters electrolytes UTI treatment Anemia work-up Per consultants Jaylon Gardner MD Jan 13, 2021 09:32
[2021-01-13 10:07] LABS: CALCIUM 7.9 MG/DL (8.5-10.1); CREATININE 1.7 MG/DL (0.55-1.30); POTASSIUM 3.3 MMOL/L (3.5-5.1)
[2021-01-13] MEDS: Docusate 100mg cap ORAL SCH ×2 (12:45→18:01)
--- NOTE | 2021-01-13 15:53 | Consultation ---
Consult Note Consult Note GYNECOLOGY CONSULTATION REPORT CC: Severe anemia secondary to vaginal bleeding and fibroids HPI: Patient admitted for severe anemia secondary to history of prolonged bleeding likely due to fibroids and perimenopause. Patient reports that in 2018 her menses became irregular, and she then experienced bleeding for 1 month. She believes she underwent EMB at that time and it was negative for hyperplasia or malignancy. Since that time she has had intermittent irregular and prolonged bleeding. Notably, in 07/2020 she began bleeding moderate-heavy with some passage of clots and has not stopped. She presented to [facility] ~2w ago and was diagnosed with severe anemia with a Hgb of 3.3. She was given 3u pRBCs, felt symptomatically better, was told her Hgb was 8, and was discharged home on a Pro vera taper. She presented here again with symptomatic anemia and no sign of prolonged or ongoing bleeding. She is currently receiving her 2nd unit of pRBCs and IV Antibiotics for a UTI. She endorses some intermittent cramping but denies any further vaginal bleeding, although she has experienced hematuria. No other issues or complaints at this time. 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 Bimanual exam revealed no active bleeding, cervix normal shape, and enlarged fibroid uterus, mobile, with irregular shape and contour. Ext: No calf TTP LABS: Test 01/13/21 00:29 01/13/21 01:07 01/13/21 09:00 White Blood Count 13.5 K/UL (4.8-10.8) H Red Blood Count 3.55 M/UL (4.20-5.40) L Hemoglobin 5.4 G/DL (12.0-16.0) *L Hematocrit 19.0 % (37.0-47.0) L Mean Corpuscular Volume 53 FL (80-99) L Mean Corpuscular Hemoglobin 15.1 PG (27.0-31.0) L Mean Corpuscular Hemoglobin Concent 28.3 G/DL (32.0-36.0) L Red Cell Distribution Width 26.8 % (11.6-14.8) H Platelet Count 428 K/UL (150-450) Mean Platelet Volume 9.8 FL (6.5-10.1) Neutrophils (%) (Auto) % (45.0-75.0) Lymphocytes (%) (Auto) % (20.0-45.0) Monocytes (%) (Auto) % (1.0-10.0) Eosinophils (%) (Auto) % (0.0-3.0) Basophils (%) (Auto) % (0.0-2.0) Prothrombin Time 10.7 SEC (9.30-11.50) Prothromb Time International Ratio 1.0 (0.9-1.1) Activated Partial Thromboplast Time 27 SEC (23-33) Sodium Level 140 MMOL/L (136-145) 145 MMOL/L (136-145) Potassium Level 2.7 MMOL/L (3.5-5.1) *L 3.3 MMOL/L (3.5-5.1) L Chloride Level 104 MMOL/L (98-107) 112 MMOL/L (98-107) H Carbon Dioxide Level 21 MMOL/L (21-32) 22 MMOL/L (21-32) Anion Gap 14 mmol/L (5-15) 11 mmol/L (5-15) Blood Urea Nitrogen 14 mg/dL (7-18) 11 mg/dL (7-18) Creatinine 1.9 MG/DL (0.55-1.30) H 1.7 MG/DL (0.55-1.30) H Estimat Glomerular Filtration Rate 34.1 mL/min (>60) 38.8 mL/min (>60) Glucose Level 124 MG/DL (74-106) H 126 MG/DL (74-106) H Calcium Level 8.9 MG/DL (8.5-10.1) 7.9 MG/DL (8.5-10.1) L Iron Level 119 ug/dL (50-175) Total Iron Binding Capacity 359 ug/dL (250-450) Percent Iron Saturation 33 % (15-50) Unsaturated Iron Binding 240 ug/dL (112-346) Total Bilirubin 1.9 MG/DL (0.2-1.0) H Direct Bilirubin 0.5 MG/DL (0.0-0.3) H Aspartate Amino Transf (AST/SGOT) 63 U/L (15-37) H Alanine Aminotransferase (ALT/SGPT) 28 U/L (12-78) Alkaline Phosphatase 78 U/L (46-116) Troponin I 0.000 ng/mL (0.000-0.056) Total Protein 8.3 G/DL (6.4-8.2) H Albumin 3.7 G/DL (3.4-5.0) Globulin 4.6 g/dL Albumin/Globulin Ratio 0.8 (1.0-2.7) L Urine Color Valerie Urine Appearance Cloudy Urine pH 5 (4.5-8.0) Urine Specific [place] 1.015 (1.005-1.035) Urine Protein 3+ (NEGATIVE) H Urine Glucose (UA) Negative (NEGATIVE) Urine Ketones 2+ (NEGATIVE) H Urine Blood 5+ (NEGATIVE) H Urine Nitrite Positive (NEGATIVE) H Urine Bilirubin 1+ (NEGATIVE) H Urine Ictotest Positive (NEGATIVE) Urine Urobilinogen 4 MG/DL (0.0-1.0) H Urine Leukocyte Esterase 2+ (NEGATIVE) H Urine RBC 30-40 /HPF (0 - 2) H Urine WBC 20-30 /HPF (0 - 2) H Urine Squamous Epithelial Cells Many /LPF (NONE/OCC) H Urine Amorphous Sediment Many /LPF (NONE) H Urine Bacteria Many /HPF (NONE) H Urine HCG, Qualitative Negative (NEGATIVE) Stool Occult Blood Negative (NEGATIVE) Ferritin 309 NG/ML (8-388) Vitamin B12 Level 317 PG/ML (193-986) Folate 7.8 NG/ML (8.6-58.9) L IMAGING: US from 2018 ([facility] and records not available) Comparison: none Findings: Uterus measures 10.6 cm length by 5.5 cm AP. The endometrium measures 7 mm thick. Multiple fibroids are seen within the myometrium, measuring up to 3.5 cm in diameter. Small nabothian cysts are seen in the cervix. The left ovary measures 2.6 cm in length. The right ovary measures 3 cm in length. Impression: Multiple uterine fibroids Otherwise unremarkable Assessment/Plan 50yo admitted with severe anemia secondary to prolonged heavy vaginal bleeding - Patient is no longer bleeding - recommend continue Provera 10mg BID until she can follow up with outpatient EGG GRADER - Continue transfusion per primary team - likely under-transfused at previous hospital given no clinical signs of ongoing bleeding - Bleeding was likely secondary to fibroids and perimenopausal status - Recommend outpatient workup with EMB and medical management of bleeding - No indication for emergent surgical management given patient is not actively bleeding at this time - Continue Provera 10mg BID in-house to prevent recurrence of bleeding - Patient states she has follow up with her MD scheduled in 1 week, and she has 2w of Provera left at home Thank you for this interesting consult. Signed: MD Elise Martinez Carla M.D. Jan 13, 2021 15:53
[2021-01-13] MEDS: medroxyPROGESTERone 10mg tab ORAL SCH (18:01)
--- NOTE | 2021-01-13 19:14 | Consultation ---
DATE OF CONSULTATION: 01/13/2021 INFECTIOUS DISEASE CONSULTATION CONSULTING PHYSICIAN: Emory Bermeo MD PRIMARY ATTENDING: Jose Garcia MD REASON FOR CONSULTATION: UTI. HISTORY OF PRESENT ILLNESS: This is a 50-year-old female admitted today from home complaining of generalized weakness and hematuria. Patient has history of uterine fibroids and severe anemia. Has weakness, rapid heart rate. 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 ALLERGIES: Allergic to penicillin and sulfa, but tolerated ceftriaxone. MEDICATIONS: Iron sucrose, Protonix, Tylenol. Got a dose of ceftriaxone in the ER. SOCIAL HISTORY: Single. Has 1 child. Denies alcohol, drug abuse, or smoking. REVIEW OF SYSTEMS: As per history of present illness. No fever. No chills. No coughing. Has some dysuria that is improving. PHYSICAL EXAMINATION: VITAL SIGNS: Temperature 98.8, pulse 85, blood pressure 95/51. GENERAL APPEARANCE: Seems to have normal weight. HEAD AND NECK: Severely decreased vision in right eye. HEART: Normal rate. LUNGS: Clear. ABDOMEN: Soft, nontender. EXTREMITIES: No edema. NEUROLOGIC: She is awake, alert, oriented x3. LABORATORY DATA: UA showed wbc's of 20 to 30, rbc's of 30 to 40, leukocyte esterase 2+, nitrite positive, blood 5+. Sodium 145, potassium 3.3, potassium at the time of admission was 2.7, chloride 112, bicarb 22, BUN 11, creatinine 1.7. Stool occult blood was negative. IMPRESSION: Hematuria and pyuria, likely UTI. Patient has severe iron deficiency anemia secondary to blood loss. Has uterine fibroids. Has hypokalemia. Has history of retinoblastoma. Has elevation of bilirubin, 1.9. Has elevation of creatinine. RECOMMENDATION: We will continue with ceftriaxone. We will follow up the cultures. At the end of my exam, I thank Dr. Garcia for involving me in the care of this patient. Emory Bermeo M.D. DR: DOMINGO JOB#: [id number] CC:
[2021-01-13] MEDS: Iron Sucrose 100 MG in NS 55 ML IVPB SCH (20:37)
--- NOTE | 2021-01-13 22:59 | History and Physical Report ---
DATE OF ADMISSION: 01/13/2021 HISTORY OF PRESENT ILLNESS: Patient admitted for anemia, acute renal failure, electrolyte imbalance, and UTI. Patient feels very weak. Has history of fibroids. She is on control pills. Admitted for severe anemia and severe hypokalemia. Patient was and also has acute renal failure, admitted for those reasons. Patient denies shortness of breath. Denies chest pain. Denies nausea, vomiting, or diarrhea. Feels very weak. Denies rectal bleeding. Denies melena. Denies vomiting. Does have heavy menstrual periods in the past chronic. PAST MEDICAL HISTORY: Fibroids, history of vaginal bleeding, dysfunctional uterine bleeding, history of conjunctivitis. PAST SURGICAL HISTORY: . ALLERGIES: Penicillin, sulfa. FAMILY HISTORY: Noncontributory. SOCIAL HISTORY: Denies history of smoking. Denies history of alcohol or illicit drugs. MEDICATIONS: Provera. REVIEW OF SYSTEMS: HEENT: Denies headaches. RESPIRATORY: Denies shortness of breath. Denies cough. CARDIOVASCULAR: Denies chest pain. GASTROINTESTINAL: Denies nausea, vomiting, or diarrhea. EXTREMITIES: Denies pain. CENTRAL NERVOUS SYSTEM: Denies change in speech pattern. Feels weak. PHYSICAL EXAMINATION: VITAL SIGNS: Temperature is 98.6, pulse is 89, blood pressure 95/66. HEENT: PERRLA. NECK: Supple. No lymphadenopathy. CHEST: Clear to auscultation. CARDIOVASCULAR: Regular rate and rhythm. No murmurs or extra sounds. GASTROINTESTINAL: Soft, nontender, nondistended. No organomegaly. EXTREMITIES: No edema. Moves all 4 extremities. NEUROLOGIC: Sensory intact to light touch. Reflexes equal on both sides. LABORATORY DATA: WBC of 13.5, hemoglobin 5.4, platelets of 428. Sodium 140, potassium 3.7, BUN 14, creatinine 1.9, glucose 129. ASSESSMENT AND PLAN: Severe anemia, acute renal failure, severe hypokalemia, urinary tract infection. I have asked , Dr. Emory Bermeo, Dr. Geoffrey Callaway, Dr. Gardner to see the patient to help with the management of the renal failure, anemia, electrolyte imbalance, and UTI. Antibiotics per Dr. Emory Bermeo. Ali Jessie Garcia DR: RANDY JOB#: [id number] CC:
[2021-01-14] VITALS: BP 106/70
[2021-01-14] MEDS: cefTRIAXone 1 GM in D5W 55 ML IVPB SCH (01:08)
[2021-01-14 04:00] VITALS: BP 97/58
[2021-01-14 06:16] LABS: HEMATOCRIT 18.6 % (37.0-47.0); MEAN CORPUSCULAR VOLUME 64 FL (80-99); PLATELET COUNT 283 K/UL (150-450); RED BLOOD COUNT 2.91 M/UL (4.20-5.40); RED CELL DISTRIBUTION WIDTH 39.2 % (11.6-14.8); WHITE BLOOD COUNT 10.7 K/UL (4.8-10.8)
--- NOTE | 2021-01-14 06:39 | Hematology/Onc Progress Note ---
Assessment/Plan Assessment/Plan Assessment and Recs # Anemia of iron deficiency with a history of heavy menstruation with uterine fibroids --> to see resolution analyst while here -> in the past recommend at [facility], may still need procedure -> anemia panel reviewed --> started on iv iron --> occult was negative --> hgb 5.4--> # Leukocytosis likely due to reactive process --> wbc 16 --> continue on abx ctx --> smear has been reviewed # UTI (urinary tract infection) --> continue for abx ctx # Hypokalemia --> replete with k # Dvt ppx scds Appreciate consultation and dw Rn Subjective Constitutional: Denies: no symptoms, chills, fever, malaise, weakness, other HEENT: Denies: no symptoms, eye pain, blurred vision, tearing, double vision, ear pain, ear discharge, nose pain, nose congestion, throat pain, throat swelli ng, mouth pain, mouth swelling, other Respiratory: Denies: no symptoms, cough, shortness of breath, SOB with excertion, SOB at rest, sputum, wheezing, other Genitourinary: Denies: no symptoms, burning, discharge, frequency, flank pain, hematuria, incontinence, pain, urgency, other Neurologic/Psychiatric: Denies: no symptoms, anxiety, depressed, emotional problems, headache, numbness, paresthesia, pre-existing deficit, seizure, tingling, tremors, weakness, other Endocrine: Denies: no symptoms, excessive sweating, flushing, intolerance to cold, intolerance to heat, increased hunger, increased thirst, increased urine, unexplained weight gain, unexplained weight loss, other Hematologic/Lymphatic: Denies: no symptoms, anemia, easy bleeding, easy bruising, adenopathy, other Allergies: Coded Allergies: PENICILLINS (Verified Allergy, Severe, Rash, 10/03/17) SULFA (SULFONAMIDE ANTIBIOTICS) (Verified Allergy, Severe, Rash, 10/03/17) Subjective 01/14 meds reviewed, labs noted, no bleeding, no major events, hgb remains low Objective Objective Current Medications Medications (Trade) Dose Ordered Sig/Jacquelin Route PRN Reason Start Time Stop Time Status Last Admin Dose Admin Ceftriaxone Sodium 1 gm/ Dextrose 55 ml @ 110 mls/hr Q24H IVPB 01/14/21 02:00 01/21/21 01:59 01/14/21 01:08 Docusate Sodium (Colace) 100 mg THREE TIMES A DAY ORAL 01/13/21 13:00 02/12/21 12:59 01/13/21 18:01 Folic Acid (Folate) 1 mg DAILY ORAL 01/13/21 13:00 02/12/21 12:59 01/13/21 13:07 Iron Sucrose 100 mg/Sodium Chloride 60 ml @ 240 mls/hr BEDTIME IVPB 01/13/21 21:00 01/17/21 21:14 01/13/21 20:37 Medroxyprogesterone Acetate (Provera) 10 mg BID ORAL 01/13/21 18:00 04/13/21 17:59 01/13/21 18:01 Ondansetron HCl (Zofran) 4 mg PRN PRN IVP Nausea & Vomiting 01/13/21 05:00 Pantoprazole (Protonix) 40 mg EVERY 12 HOURS ORAL 01/13/21 09:45 02/12/21 09:44 01/13/21 20:37 Potassium Chloride (K-Dur) 40 meq DAILY ORAL 01/13/21 13:00 04/13/21 12:59 01/13/21 13:06 Last 24 Hour Vital Signs Date Time Temp Pulse Resp B/P (MAP) Pulse Ox O2 Delivery O2 Flow Rate FiO2 01/14/21 04:00 97.6 80 20 97/58 (71) 96 01/14/21 00:00 99.5 96 20 106/70 (82) 95 01/13/21 21:00 Room Air 01/13/21 20:00 98.6 89 20 120/63 (82) 98 01/13/21 15:41 98.4 73 20 97/65 (76) 99 01/13/21 12:00 98.8 85 18 95/51 (66) 99 01/13/21 09:00 Room Air 01/13/21 08:00 98.6 89 18 95/51 (66) 99 01/13/21 05:05 Room Air 01/13/21 05:00 98.4 102 20 106/85 (92) 98 01/13/21 04:21 97.9 86 16 98/61 100 Room Air 01/13/21 03:25 97.9 18 107/60 100 Room Air 01/13/21 02:09 97.9 18 106/64 98 Room Air 01/13/21 01:08 97.9 18 100/61 98 Room Air 01/13/21 00:35 97.9 18 100/74 98 Room Air 01/13/21 00:35 86 18 Room Air 01/13/21 00:12 97.9 86 18 85/49 (61) 98 Room Air Intake and Output 01/13/21 01/14/21 19:00 07:00 Intake Total 500 ml 500 ml Balance 500 ml 500 ml Intake Oral 500 ml Other 500 ml # Voids 2 # Bowel Movements 1 Labs Test 01/13/21 00:29 01/13/21 01:07 01/13/21 09:00 01/14/21 04:55 White Blood Count 13.5 K/UL (4.8-10.8) Red Blood Count 3.55 M/UL (4.20-5.40) Hemoglobin 5.4 G/DL (12.0-16.0) Hematocrit 19.0 % (37.0-47.0) Mean Corpuscular Volume 53 FL (80-99) Mean Corpuscular Hemoglobin 15.1 PG (27.0-31.0) Mean Corpuscular Hemoglobin Concent 28.3 G/DL (32.0-36.0) Red Cell Distribution Width 26.8 % (11.6-14.8) Platelet Count 428 K/UL (150-450) Mean Platelet Volume 9.8 FL (6.5-10.1) Neutrophils (%) (Auto) % (45.0-75.0) Lymphocytes (%) (Auto) % (20.0-45.0) Monocytes (%) (Auto) % (1.0-10.0) Eosinophils (%) (Auto) % (0.0-3.0) Basophils (%) (Auto) % (0.0-2.0) Prothrombin Time 10.7 SEC (9.30-11.50) Prothromb Time International Ratio 1.0 (0.9-1.1) Activated Partial Thromboplast Time 27 SEC (23-33) Sodium Level 140 MMOL/L (136-145) 145 MMOL/L (136-145) Potassium Level 2.7 MMOL/L (3.5-5.1) 3.3 MMOL/L (3.5-5.1) Chloride Level 104 MMOL/L (98-107) 112 MMOL/L (98-107) Carbon Dioxide Level 21 MMOL/L (21-32) 22 MMOL/L (21-32) Anion Gap 14 mmol/L (5-15) 11 mmol/L (5-15) Blood Urea Nitrogen 14 mg/dL (7-18) 11 mg/dL (7-18) Creatinine 1.9 MG/DL (0.55-1.30) 1.7 MG/DL (0.55-1.30) Estimat Glomerular Filtration Rate 34.1 mL/min (>60) 38.8 mL/min (>60) Glucose Level 124 MG/DL (74-106) 126 MG/DL (74-106) Calcium Level 8.9 MG/DL (8.5-10.1) 7.9 MG/DL (8.5-10.1) Iron Level 119 ug/dL (50-175) Total Iron Binding Capacity 359 ug/dL (250-450) Percent Iron Saturation 33 % (15-50) Unsaturated Iron Binding 240 ug/dL (112-346) Total Bilirubin 1.9 MG/DL (0.2-1.0) Direct Bilirubin 0.5 MG/DL (0.0-0.3) Aspartate Amino Transf (AST/SGOT) 63 U/L (15-37) Alanine Aminotransferase (ALT/SGPT) 28 U/L (12-78) Alkaline Phosphatase 78 U/L (46-116) Troponin I 0.000 ng/mL (0.000-0.056) Total Protein 8.3 G/DL (6.4-8.2) Albumin 3.7 G/DL (3.4-5.0) Globulin 4.6 g/dL Albumin/Globulin Ratio 0.8 (1.0-2.7) Urine Color Valerie Urine Appearance Cloudy Urine pH 5 (4.5-8.0) Urine Specific [place] 1.015 (1.005-1.035) Urine Protein 3+ (NEGATIVE) Urine Glucose (UA) Negative (NEGATIVE) Urine Ketones 2+ (NEGATIVE) Urine Blood 5+ (NEGATIVE) Urine Nitrite Positive (NEGATIVE) Urine Bilirubin 1+ (NEGATIVE) Urine Ictotest Positive (NEGATIVE) Urine Urobilinogen 4 MG/DL (0.0-1.0) Urine Leukocyte Esterase 2+ (NEGATIVE) Urine RBC 30-40 /HPF (0 - 2) Urine WBC 20-30 /HPF (0 - 2) Urine Squamous Epithelial Cells Many /LPF (NONE/OCC) Urine Amorphous Sediment Many /LPF (NONE) Urine Bacteria Many /HPF (NONE) Urine HCG, Qualitative Negative (NEGATIVE) Stool Occult Blood Negative (NEGATIVE) Ferritin 309 NG/ML (8-388) Vitamin B12 Level 317 PG/ML (193-986) Folate 7.8 NG/ML (8.6-58.9) Height (Feet): 5 Height (Inches): 4.00 Weight (Pounds): 169 Objective General: Awake and alert, nad HEENT: NC/AT. EOMI. Cardiovascular: RRR. S1 and S2 normal. No murmur appreciated Resp: Normal work of breathing. No cough, wheezing or crackles appreciated Abdomen: Abdomen is soft, nondistended. Nontender Rectal: No external hemorrhoids, no palpable internal hemorrhoids. ++ Firm stool in vault. Skin: Intact. No abrasions, laceration or rash over the exposed skin MSK: Normal tone and bulk. Moving all extremities Neuro: Awake and alert. Mentating appropriately. Geoffrey Callaway MD Jan 14, 2021 06:39
[2021-01-14 07:00] LABS: HEMOGLOBIN 5.6 G/DL (12.0-16.0)
[2021-01-14 07:12] LABS: ALANINE AMINOTRANSFERASE 36 U/L (12-78); ALBUMIN 2.7 G/DL (3.4-5.0); ALBUMIN/GLOBULIN RATIO 0.7 (1.0-2.7); ALKALINE PHOSPHATASE 58 U/L (46-116); ANION GAP 11 mmol/L (5-15); ASPARTATE AMINO TRANSFERASE 117 U/L (15-37); BILIRUBIN,TOTAL 4.1 MG/DL (0.2-1.0); BLOOD UREA NITROGEN 12 mg/dL (7-18); CALCIUM 8.3 MG/DL (8.5-10.1); CARBON DIOXIDE 21 MMOL/L (21-32); CHLORIDE 111 MMOL/L (98-107); CHOLESTEROL 145 MG/DL (< 200); CREATININE 1.9 MG/DL (0.55-1.30); HDL CHOLESTEROL 15 MG/DL (40-60); PHOSPHORUS 1.1 MG/DL (2.5-4.9); SODIUM 142 MMOL/L (136-145); TRIGLYCERIDES 156 MG/DL (30-150)
[2021-01-14 07:14] LABS: BILIRUBIN,DIRECT 0.7 MG/DL (0.0-0.3)
[2021-01-14 08:00] VITALS: BP 110/63
[2021-01-14] MEDS: medroxyPROGESTERone 10mg tab ORAL SCH ×2 (09:03→17:38)
[2021-01-14] MEDS: Docusate 100mg cap ORAL SCH ×3 (09:03→17:38)
[2021-01-14] MEDS ORDERED: Potassium Phosphate 15mm/250ml 250 ML IVPB SCH (10:00)
[2021-01-14] MEDS ORDERED: Sodium Phosphate 30 MM in NS 275 ML IVPB ONE (11:00)
[2021-01-14 12:00] VITALS: BP 105/58
[2021-01-14] MEDS: Phospha 250 Neutral tab ORAL SCH ×2 (12:24→17:38)
--- NOTE | 2021-01-14 12:28 | Nephrology Progress Note ---
Assessment/Plan Problem List: (1) Electrolyte imbalance (2) Hypokalemia (3) Anemia (4) UTI (urinary tract infection) (5) DUB (dysfunctional uterine bleeding) (6) Hypophosphatemia Assessment Hypokalemia Severe anemia UTI History of uterine fibroid History of retinoblastoma Plan January 14: Phosphorus supplement as his phosphorus level is critically low. Medication list reviewed. Consultants notes reviewed. Continue per current management. Continue to monitor chemistry panel and hemoglobin and hematocrit. Stable from renal standpoint of view. Previously: Potassium supplement Monitor renal parameters electrolytes UTI treatment Anemia work-up Per consultants Subjective ROS Limited/Unobtainable: No Constitutional: Reports: malaise Objective Objective Last 24 Hour Vital Signs Date Time Temp Pulse Resp B/P (MAP) Pulse Ox O2 Delivery O2 Flow Rate FiO2 01/14/21 12:00 97.9 79 20 105/58 (74) 97 01/14/21 08:00 99.1 79 19 110/63 (79) 98 01/14/21 04:00 97.6 80 20 97/58 (71) 96 01/14/21 00:00 99.5 96 20 106/70 (82) 95 01/13/21 21:00 Room Air 01/13/21 20:00 98.6 89 20 120/63 (82) 98 01/13/21 15:41 98.4 73 20 97/65 (76) 99 Intake and Output 01/13/21 01/14/21 19:00 07:00 Intake Total 500 ml 500 ml Balance 500 ml 500 ml Intake Oral 500 ml Other 500 ml # Voids 2 # Bowel Movements 1 Current Medications Medications (Trade) Dose Ordered Sig/Jacquelin Route PRN Reason Start Time Stop Time Status Last Admin Dose Admin Ceftriaxone Sodium 1 gm/ Dextrose 55 ml @ 110 mls/hr Q24H IVPB 01/14/21 02:00 01/21/21 01:59 01/14/21 01:08 Docusate Sodium (Colace) 100 mg THREE TIMES A DAY ORAL 01/13/21 13:00 02/12/21 12:59 01/14/21 12:24 Folic Acid (Folate) 1 mg DAILY ORAL 01/13/21 13:00 02/12/21 12:59 01/14/21 09:03 Iron Sucrose 100 mg/Sodium Chloride 60 ml @ 240 mls/hr BEDTIME IVPB 01/13/21 21:00 01/17/21 21:14 01/13/21 20:37 Medroxyprogesterone Acetate (Provera) 10 mg BID ORAL 01/13/21 18:00 04/13/21 17:59 01/14/21 09:03 Ondansetron HCl (Zofran) 4 mg PRN PRN IVP Nausea & Vomiting 01/13/21 05:00 Pantoprazole (Protonix) 40 mg EVERY 12 HOURS ORAL 01/13/21 09:45 02/12/21 09:44 01/14/21 09:03 Phosphorus (Phospha 250 Neutral) 250 mg THREE TIMES A DAY ORAL 01/14/21 13:00 02/13/21 12:59 01/14/21 12:24 Potassium Chloride (K-Dur) 40 meq DAILY ORAL 01/13/21 13:00 04/13/21 12:59 01/14/21 09:03 Sodium Phosphate 30 mm/Sodium Chloride 285 ml @ 47.5 mls/hr ONCE ONCE IVPB 01/14/21 11:00 01/14/21 16:59 01/14/21 11:13 Laboratory Tests 01/14/21 04:55: White Blood Count 10.7, Red Blood Count 2.91L, Hemoglobin 5.6*L, Hematocrit 18.6L, Mean Corpuscular Volume 64#L, Mean Corpuscular Hemoglobin 19.3L, Mean Corpuscular Hemoglobin Concent 30.1L, Red Cell Distribution Width 39.2H, Platelet Count 283, Mean Platelet Volume 8.8, Neutrophils (%) (Auto) , Lymphocytes (%) (Auto) , Monocytes (%) (Auto) , Eosinophils (%) (Auto) , Basophils (%) (Auto) , Differential Total Cells Counted 100, Neutrophils % (Manual) 67, Lymphocytes % (Manual) 20, Monocytes % (Manual) 10, Eosinophils % (Manual) 2, Basophils % (Manual) 1, Band Neutrophils 0, Platelet Estimate Adequate, Platelet Morphology Normal, Hypochromasia 3+, Poikilocytosis 1+, Anisocytosis 3+, Microcytosis 2+, Schistocytes 1+, Sodium Level 142, Potassium Level 4.0, Chloride Level 111H, Carbon Dioxide Level 21, Anion Gap 11, Blood Urea Nitrogen 12, Creatinine 1.9H, Estimat Glomerular Filtration Rate 34.1, Glucose Level 114H, Calcium Level 8.3L, Phosphorus Level 1.1L, Magnesium Level 2.0, Total Bilirubin 4.1H, Direct Bilirubin 0.7H, Aspartate Amino Transf (AST/SGOT) 117H, Alanine Aminotransferase (ALT/SGPT) 36, Alkaline Phosphatase 58, C-Reactive Protein, Quantitative 8.3H, Pro-B-Type Natriuretic Peptide 1221H, Total Protein 6.5, Albumin 2.7L, Globulin 3.8, Albumin/Globulin Ratio 0.7L, Triglycerides Level 156H, Cholesterol Level 145, LDL Cholesterol 100, HDL Cholesterol 15L, Cholesterol/HDL Ratio 9.7H, Thyroid Stimulating Hormone (TSH) 0.619 Height (Feet): 5 Height (Inches): 4.00 Weight (Pounds): 169 General Appearance: no apparent distress Cardiovascular: normal rate Respiratory/Chest: decreased breath sounds Abdomen: distended Jaylon Gardner MD Jan 14, 2021 12:28
[2021-01-14] MEDS ORDERED: NAPROXEN375 M2 ORAL (12:45)
--- NOTE | 2021-01-14 13:29 | Infectious Diseases Prog Note ---
Assessment/Plan Assessment/Plan IMPRESSION: Hematuria and pyuria, likely UTI. Severe iron deficiency anemia secondary to blood loss. Uterine fibroids. Hypokalemia. History of retinoblastoma. Elevation of bilirubin, Elevation of creatinine. RECOMMENDATION: We will continue with ceftriaxone. We will follow up the cultures. Abdominal US Subjective ROS Limited/Unobtainable: Yes Constitutional: Reports: fatigue Respiratory: Reports: no symptoms Gastrointestinal/Abdominal: Reports: no symptoms Genitourinary: Reports: hematuria Allergies: Coded Allergies: PENICILLINS (Verified Allergy, Severe, Rash, 10/03/17) SULFA (SULFONAMIDE ANTIBIOTICS) (Verified Allergy, Severe, Rash, 10/03/17) Objective Last 24 Hour Vital Signs Date Time Temp Pulse Resp B/P (MAP) Pulse Ox O2 Delivery O2 Flow Rate FiO2 01/14/21 12:00 97.9 79 20 105/58 (74) 97 01/14/21 08:00 99.1 79 19 110/63 (79) 98 01/14/21 04:00 97.6 80 20 97/58 (71) 96 01/14/21 00:00 99.5 96 20 106/70 (82) 95 01/13/21 21:00 Room Air 01/13/21 20:00 98.6 89 20 120/63 (82) 98 01/13/21 15:41 98.4 73 20 97/65 (76) 99 Height (Feet): 5 Height (Inches): 4.00 Weight (Pounds): 169 HEENT: mucous membranes moist Respiratory/Chest: lungs clear Cardiovascular: normal rate Abdomen: soft, non tender Extremities: no edema Neurologic/Psychiatric: alert, oriented x 3, responsive Laboratory Tests Test 01/14/21 04:55 White Blood Count 10.7 K/UL (4.8-10.8) Red Blood Count 2.91 M/UL (4.20-5.40) L Hemoglobin 5.6 G/DL (12.0-16.0) *L Hematocrit 18.6 % (37.0-47.0) L Mean Corpuscular Volume 64 FL (80-99) #L Mean Corpuscular Hemoglobin 19.3 PG (27.0-31.0) L Mean Corpuscular Hemoglobin Concent 30.1 G/DL (32.0-36.0) L Red Cell Distribution Width 39.2 % (11.6-14.8) H Platelet Count 283 K/UL (150-450) Mean Platelet Volume 8.8 FL (6.5-10.1) Neutrophils (%) (Auto) % (45.0-75.0) Lymphocytes (%) (Auto) % (20.0-45.0) Monocytes (%) (Auto) % (1.0-10.0) Eosinophils (%) (Auto) % (0.0-3.0) Basophils (%) (Auto) % (0.0-2.0) Differential Total Cells Counted 100 Neutrophils % (Manual) 67 % (45-75) Lymphocytes % (Manual) 20 % (20-45) Monocytes % (Manual) 10 % (1-10) Eosinophils % (Manual) 2 % (0-3) Basophils % (Manual) 1 % (0-2) Band Neutrophils 0 % (0-8) Platelet Estimate Adequate Platelet Morphology Normal Hypochromasia 3+ Poikilocytosis 1+ Anisocytosis 3+ Microcytosis 2+ Schistocytes 1+ Sodium Level 142 MMOL/L (136-145) Potassium Level 4.0 MMOL/L (3.5-5.1) Chloride Level 111 MMOL/L (98-107) H Carbon Dioxide Level 21 MMOL/L (21-32) Anion Gap 11 mmol/L (5-15) Blood Urea Nitrogen 12 mg/dL (7-18) Creatinine 1.9 MG/DL (0.55-1.30) H Estimat Glomerular Filtration Rate 34.1 mL/min (>60) Glucose Level 114 MG/DL (74-106) H Calcium Level 8.3 MG/DL (8.5-10.1) L Phosphorus Level 1.1 MG/DL (2.5-4.9) L Magnesium Level 2.0 MG/DL (1.8-2.4) Total Bilirubin 4.1 MG/DL (0.2-1.0) H Direct Bilirubin 0.7 MG/DL (0.0-0.3) H Aspartate Amino Transf (AST/SGOT) 117 U/L (15-37) H Alanine Aminotransferase (ALT/SGPT) 36 U/L (12-78) Alkaline Phosphatase 58 U/L (46-116) C-Reactive Protein, Quantitative 8.3 mg/dL (0.00-0.90) H Pro-B-Type Natriuretic Peptide 1221 pg/mL (0-125) H Total Protein 6.5 G/DL (6.4-8.2) Albumin 2.7 G/DL (3.4-5.0) L Globulin 3.8 g/dL Albumin/Globulin Ratio 0.7 (1.0-2.7) L Triglycerides Level 156 MG/DL (30-150) H Cholesterol Level 145 MG/DL (< 200) LDL Cholesterol 100 mg/dL (<100) HDL Cholesterol 15 MG/DL (40-60) L Cholesterol/HDL Ratio 9.7 (3.3-4.4) H Thyroid Stimulating Hormone (TSH) 0.619 uiU/mL (0.358-3.740) Current Medications Medications (Trade) Dose Ordered Sig/Jacquelin Route PRN Reason Start Time Stop Time Status Last Admin Dose Admin Ceftriaxone Sodium 1 gm/ Dextrose 55 ml @ 110 mls/hr Q24H IVPB 01/14/21 02:00 01/21/21 01:59 01/14/21 01:08 Docusate Sodium (Colace) 100 mg THREE TIMES A DAY ORAL 01/13/21 13:00 02/12/21 12:59 01/14/21 12:24 Folic Acid (Folate) 1 mg DAILY ORAL 01/13/21 13:00 02/12/21 12:59 01/14/21 09:03 Iron Sucrose 100 mg/Sodium Chloride 60 ml @ 240 mls/hr BEDTIME IVPB 01/13/21 21:00 01/17/21 21:14 01/13/21 20:37 Medroxyprogesterone Acetate (Provera) 10 mg BID ORAL 01/13/21 18:00 04/13/21 17:59 01/14/21 09:03 Ondansetron HCl (Zofran) 4 mg PRN PRN IVP Nausea & Vomiting 01/13/21 05:00 Pantoprazole (Protonix) 40 mg EVERY 12 HOURS ORAL 01/13/21 09:45 02/12/21 09:44 01/14/21 09:03 Phosphorus (Phospha 250 Neutral) 250 mg THREE TIMES A DAY ORAL 01/14/21 13:00 02/13/21 12:59 01/14/21 12:24 Potassium Chloride (K-Dur) 40 meq DAILY ORAL 01/13/21 13:00 04/13/21 12:59 01/14/21 09:03 Sodium Phosphate 30 mm/Sodium Chloride 285 ml @ 47.5 mls/hr ONCE ONCE IVPB 01/14/21 11:00 01/14/21 16:59 01/14/21 11:13 Emory Bermeo MD Jan 14, 2021 13:29
[2021-01-14 16:00] VITALS: BP 110/67
--- NOTE | 2021-01-14 18:03 | Diagnostic Imaging Report ---
Indication: Abdominal pain Technique: Noncontrast CT of the abdomen and pelvis utilizing automated exposure control. Axial, sagittal and coronal reformats presented. CT dose: Total DLP 417.8 mGycm; CTDI vol 7.7 mGy Comparison: None Findings: Please note that evaluation of the abdominal and pelvic viscera and vascular structures is limited without the use of intravenous and oral contrast. Within these limitations the following observations are made: Minimal dependent atelectatic changes noted in the lung bases. There are 2 subpleural nodules noted in the periphery of the right lower lobe, larger measuring approximately 5 mm (axial image #7). There is also a 4 mm nodule in the periphery of the left lower lobe (axial image #12). Noncontrast evaluation of the liver, gallbladder, adrenal glands and pancreas grossly unremarkable. Borderline splenomegaly with the spleen measuring 12.8 cm in length. There is no urinary tract stone or hydronephrosis. No perinephric stranding or perinephric fluid collection. There is bladder wall thickening. The uterus is enlarged and heterogeneous with a lobular contour. Multiple heterogeneous masses are noted within the uterus, some containing small calcifications. There is no free peritoneal air or fluid. There is no evidence of bowel obstruction or focal inflammatory stranding within the mesenteric fat. The appendix is normal in caliber and there is no periappendiceal inflammatory stranding. Abdominal aorta is normal in caliber. There is no subcutaneous fluid collection/abscess. There is hypoattenuation of the blood pool relative to the intraventricular septum suggesting anemia. There is a tiny fat-containing umbilical hernia. Mild degenerative changes noted in the lower lumbar spine. No acute osseous abnormality. IMPRESSION: Limited exam without intravenous and oral contrast. Within these limitations: * Uterus enlarged by multiple heterogeneous masses most likely representing fibroids. Please correlate clinically. Gynecologic evaluation/follow-up suggested. * Imaging findings suggesting anemia. Correlation with CBC recommended. * Bladder wall thickening which may be related to underdistention. Correlation with urinalysis is recommended to exclude cystitis. * Borderline splenomegaly. * Subcentimeter lung nodules, largest measures approximately [address] scanner at [facility] is accredited by the [employer] and the scans are performed using protocols designed to limit radiation exposure to as low as reasonably achievable to attain images of sufficient resolution adequate for diagnostic evaluation.
--- NOTE | 2021-01-14 19:59 | General Progress Note ---
Subjective ROS Limited/Unobtainable: Yes Allergies: Coded Allergies: PENICILLINS (Verified Allergy, Severe, Rash, 10/03/17) SULFA (SULFONAMIDE ANTIBIOTICS) (Verified Allergy, Severe, Rash, 10/03/17) Objective Last 24 Hour Vital Signs Date Time Temp Pulse Resp B/P (MAP) Pulse Ox O2 Delivery O2 Flow Rate FiO2 01/14/21 16:00 98.3 74 19 110/67 (81) 96 01/14/21 12:00 97.9 79 20 105/58 (74) 97 01/14/21 09:00 Room Air 01/14/21 08:00 99.1 79 19 110/63 (79) 98 01/14/21 04:00 97.6 80 20 97/58 (71) 96 01/14/21 00:00 99.5 96 20 106/70 (82) 95 01/13/21 21:00 Room Air 01/13/21 20:00 98.6 89 20 120/63 (82) 98 Intake and Output 01/13/21 01/14/21 19:00 07:00 Intake Total 500 ml 500 ml Balance 500 ml 500 ml Intake Oral 500 ml Other 500 ml # Voids 2 # Bowel Movements 1 Laboratory Tests 01/14/21 04:55: White Blood Count 10.7, Red Blood Count 2.91L, Hemoglobin 5.6*L, Hematocrit 18.6L, Mean Corpuscular Volume 64#L, Mean Corpuscular Hemoglobin 19.3L, Mean Corpuscular Hemoglobin Concent 30.1L, Red Cell Distribution Width 39.2H, Pl atelet Count 283, Mean Platelet Volume 8.8, Neutrophils (%) (Auto) , Lymphocytes (%) (Auto) , Monocytes (%) (Auto) , Eosinophils (%) (Auto) , Basophils (%) (Auto) , Differential Total Cells Counted 100, Neutrophils % (Manual) 67, Lymphocytes % (Manual) 20, Monocytes % (Manual) 10, Eosinophils % (Manual) 2, Basophils % (Manual) 1, Band Neutrophils 0, Platelet Estimate Adequate, Platelet Morphology Normal, Hypochromasia 3+, Poikilocytosis 1+, Anisocytosis 3+, Microcytosis 2+, Schistocytes 1+, Sodium Level 142, Potassium Level 4.0, Chloride Level 111H, Carbon Dioxide Level 21, Anion Gap 11, Blood Urea Nitrogen 12, Creatinine 1.9H, Estimat Glomerular Filtration Rate 34.1, Glucose Level 114H , Calcium Level 8.3L, Phosphorus Level 1.1L, Magnesium Level 2.0, Total Bilirubin 4.1H, Direct Bilirubin 0.7H, Aspartate Amino Transf (AST/SGOT) 117H, Alanine Aminotransferase (ALT/SGPT) 36, Alkaline Phosphatase 58, C-Reactive Protein, Quantitative 8.3H, Pro-B-Type Natriuretic Peptide 1221H, Total Protein 6.5, Albumin 2.7L, Globulin 3.8, Albumin/Globulin Ratio 0.7L, Triglycerides Level 156H, Cholesterol Level 145, LDL Cholesterol 100, HDL Cholesterol 15L, Cholesterol/HDL Ratio 9.7H, Thyroid Stimulating Hormone (TSH) 0.619 Height (Feet): 5 Height (Inches): 4.00 Weight (Pounds): 169 Assessment/Plan Problem List: (1) Hypokalemia ICD Codes: E87.6 - Hypokalemia SNOMED: 92981596 (2) Fibroids ICD Codes: D25.9 - Leiomyoma of uterus, unspecified SNOMED: 32603374 (3) Anemia ICD Codes: D64.9 - Anemia, unspecified SNOMED: 676512908 (4) Electrolyte imbalance ICD Codes: E87.8 - Other disorders of electrolyte and fluid balance, not elsewhere classified SNOMED: 247445965 (5) DUB (dysfunctional uterine bleeding) ICD Codes: N93.8 - Other specified abnormal uterine and vaginal bleeding SNOMED: 03933139 (6) UTI (urinary tract infection) ICD Codes: N39.0 - Urinary tract infection, site not specified SNOMED: 56703846 Status: progressing Assessment/Plan: afebrile anemia is improving s/p transfusion vaginal bleeding Jose Garcia MD Jan 14, 2021 19:59
[2021-01-14 20:00] VITALS: BP 107/72
[2021-01-14] MEDS: Iron Sucrose 100 MG in NS 55 ML IVPB SCH (20:37)
[2021-01-15] VITALS (7 sets, daily range): BP systolic 113–134; BP diastolic 67–81
[2021-01-15] MEDS: cefTRIAXone 1 GM in D5W 55 ML IVPB SCH (02:04)
--- NOTE | 2021-01-15 06:06 | Hematology/Onc Progress Note ---
Assessment/Plan Assessment/Plan Assessment and Recs # Anemia of iron deficiency with a history of heavy menstruation with uterine fibroids --> to see [employer] photographs while here -> in the past recommend at [facility], may still need procedure -> anemia panel reviewed --> started on iv iron --> occult was negative --> hgb 5.4-->5.6 --> on provera as per [employer] photographs # Leukocytosis likely due to reactive process --> wbc 16-->9.7 --> continue on abx ctx --> smear has been reviewed # UTI (urinary tract infection) --> continue for abx ctx # Hypokalemia --> replete with k # Dvt ppx scds Appreciate consultation and reza Rn Subjective HEENT: Denies: no symptoms, eye pain, blurred vision, tearing, double vision, ear pain, ear discharge, nose pain, nose congestion, throat pain, throat swelling, mouth pain, mouth swelling, other Cardiovascular: Denies: no symptoms, chest pain, edema, irregular heart rate, lightheadedness, palpitations, syncope, other Respiratory: Denies: no symptoms, cough, shortness of breath, SOB with excertion, SOB at rest, sputum, wheezing, other Gastrointestinal/Abdominal: Denies: no symptoms, abdomen distended, abdominal pain, black stools, tarry stools, blood in stool, constipated, diarrhea, difficulty swallowing, nausea, poor appetite, poor fluid intake, rectal bleeding, vomiting, other Genitourinary: Denies: no symptoms, burning, discharge, frequency, flank pain, hematuria, incontinence, pain, urgency, other Neurologic/Psychiatric: Denies: no symptoms, anxiety, depressed, emotional problems, headache, numbness, paresthesia, pre-existing deficit, seizure, tingling, tremors, weakness, other Endocrine: Denies: no symptoms, excessive sweating, flushing, intolerance to cold, intolerance to heat, increased hunger, increased thirst, increased urine, unexplained weight gain, unexplained weight loss, other Hematologic/Lymphatic: Denies: no symptoms, anemia, easy bleeding, easy bruising, adenopathy, other Allergies: Coded Allergies: PENICILLINS (Verified Allergy, Severe, Rash, 10/03/17) SULFA (SULFONAMIDE ANTIBIOTICS) (Verified Allergy, Severe, Rash, 10/03/17) Subjective 01/14 meds reviewed, labs noted, no bleeding, no major events, hgb remains low 01/15 on provera bid therapy, as per [employer] photographs, to f/u outpatient, cbc pending Objective Objective Current Medications Medications (Trade) Dose Ordered Sig/Jacquelin Route PRN Reason Start Time Stop Time Status Last Admin Dose Admin Ceftriaxone Sodium 1 gm/ Dextrose 55 ml @ 110 mls/hr Q24H IVPB 01/14/21 02:00 01/21/21 01:59 01/15/21 02:04 Docusate Sodium (Colace) 100 mg THREE TIMES A DAY ORAL 01/13/21 13:00 02/12/21 12:59 01/14/21 17:38 Folic Acid (Folate) 1 mg DAILY ORAL 01/13/21 13:00 02/12/21 12:59 01/14/21 09:03 Iron Sucrose 100 mg/Sodium Chloride 60 ml @ 240 mls/hr BEDTIME IVPB 01/13/21 21:00 01/17/21 21:14 01/14/21 20:37 Medroxyprogesterone Acetate (Provera) 10 mg BID ORAL 01/13/21 18:00 04/13/21 17:59 01/14/21 17:38 Ondansetron HCl (Zofran) 4 mg PRN PRN IVP Nausea & Vomiting 01/13/21 05:00 Pantoprazole (Protonix) 40 mg EVERY 12 HOURS ORAL 01/13/21 09:45 02/12/21 09:44 01/14/21 20:37 Phosphorus (Phospha 250 Neutral) 250 mg THREE TIMES A DAY ORAL 01/14/21 13:00 02/13/21 12:59 01/14/21 17:38 Potassium Chloride (K-Dur) 40 meq DAILY ORAL 01/13/21 13:00 04/13/21 12:59 01/14/21 09:03 Last 24 Hour Vital Signs Date Time Temp Pulse Resp B/P (MAP) Pulse Ox O2 Delivery O2 Flow Rate FiO2 01/15/21 04:00 97.9 66 18 118/74 (89) 96 01/15/21 00:00 98.0 67 18 118/67 (84) 96 01/14/21 21:00 Room Air 01/14/21 20:00 98.9 72 18 107/72 (84) 96 01/14/21 16:00 98.3 74 19 110/67 (81) 96 01/14/21 12:00 97.9 79 20 105/58 (74) 97 01/14/21 09:00 Room Air 01/14/21 08:00 99.1 79 19 110/63 (79) 98 01/14/21 04:00 97.6 80 20 97/58 (71) 96 01/14/21 00:00 99.5 96 20 106/70 (82) 95 01/13/21 21:00 Room Air 01/13/21 20:00 98.6 89 20 120/63 (82) 98 01/13/21 15:41 98.4 73 20 97/65 (76) 99 01/13/21 12:00 98.8 85 18 95/51 (66) 99 01/13/21 09:00 Room Air 01/13/21 08:00 98.6 89 18 95/51 (66) 99 Intake and Output 01/14/21 01/15/21 19:00 07:00 Intake Total 600 ml 115 ml Balance 600 ml 115 ml Intake Oral 600 ml IV Total 115 ml Labs Test 01/13/21 00:29 01/13/21 01:07 01/13/21 09:00 01/14/21 04:55 White Blood Count 13.5 K/UL (4.8-10.8) 10.7 K/UL (4.8-10.8) Red Blood Count 3.55 M/UL (4.20-5.40) 2.91 M/UL (4.20-5.40) Hemoglobin 5.4 G/DL (12.0-16.0) 5.6 G/DL (12.0-16.0) Hematocrit 19.0 % (37.0-47.0) 18.6 % (37.0-47.0) Mean Corpuscular Volume 53 FL (80-99) 64 FL (80-99) Mean Corpuscular Hemoglobin 15.1 PG (27.0-31.0) 19.3 PG (27.0-31.0) Mean Corpuscular Hemoglobin Concent 28.3 G/DL (32.0-36.0) 30.1 G/DL (32.0-36.0) Red Cell Distribution Width 26.8 % (11.6-14.8) 39.2 % (11.6-14.8) Platelet Count 428 K/UL (150-450) 283 K/UL (150-450) Mean Platelet Volume 9.8 FL (6.5-10.1) 8.8 FL (6.5-10.1) Neutrophils (%) (Auto) % (45.0-75.0) % (45.0-75.0) Lymphocytes (%) (Auto) % (20.0-45.0) % (20.0-45.0) Monocytes (%) (Auto) % (1.0-10.0) % (1.0-10.0) Eosinophils (%) (Auto) % (0.0-3.0) % (0.0-3.0) Basophils (%) (Auto) % (0.0-2.0) % (0.0-2.0) Prothrombin Time 10.7 SEC (9.30-11.50) Prothromb Time International Ratio 1.0 (0.9-1.1) Activated Partial Thromboplast Time 27 SEC (23-33) Sodium Level 140 MMOL/L (136-145) 145 MMOL/L (136-145) 142 MMOL/L (136-145) Potassium Level 2.7 MMOL/L (3.5-5.1) 3.3 MMOL/L (3.5-5.1) 4.0 MMOL/L (3.5-5.1) Chloride Level 104 MMOL/L (98-107) 112 MMOL/L (98-107) 111 MMOL/L (98-107) Carbon Dioxide Level 21 MMOL/L (21-32) 22 MMOL/L (21-32) 21 MMOL/L (21-32) Anion Gap 14 mmol/L (5-15) 11 mmol/L (5-15) 11 mmol/L (5-15) Blood Urea Nitrogen 14 mg/dL (7-18) 11 mg/dL (7-18) 12 mg/dL (7-18) Creatinine 1.9 MG/DL (0.55-1.30) 1.7 MG/DL (0.55-1.30) 1.9 MG/DL (0.55-1.30) Estimat Glomerular Filtration Rate 34.1 mL/min (>60) 38.8 mL/min (>60) 34.1 mL/min (>60) Glucose Level 124 MG/DL (74-106) 126 MG/DL (74-106) 114 MG/DL (74-106) Calcium Level 8.9 MG/DL (8.5-10.1) 7.9 MG/DL (8.5-10.1) 8.3 MG/DL (8.5-10.1) Iron Level 119 ug/dL (50-175) Total Iron Binding Capacity 359 ug/dL (250-450) Percent Iron Saturation 33 % (15-50) Unsaturated Iron Binding 240 ug/dL (112-346) Total Bilirubin 1.9 MG/DL (0.2-1.0) 4.1 MG/DL (0.2-1.0) Direct Bilirubin 0.5 MG/DL (0.0-0.3) 0.7 MG/DL (0.0-0.3) Aspartate Amino Transf (AST/SGOT) 63 U/L (15-37) 117 U/L (15-37) Alanine Aminotransferase (ALT/SGPT) 28 U/L (12-78) 36 U/L (12-78) Alkaline Phosphatase 78 U/L (46-116) 58 U/L (46-116) Troponin I 0.000 ng/mL (0.000-0.056) Total Protein 8.3 G/DL (6.4-8.2) 6.5 G/DL (6.4-8.2) Albumin 3.7 G/DL (3.4-5.0) 2.7 G/DL (3.4-5.0) Globulin 4.6 g/dL 3.8 g/dL Albumin/Globulin Ratio 0.8 (1.0-2.7) 0.7 (1.0-2.7) Urine Color Valerie Urine Appearance Cloudy Urine pH 5 (4.5-8.0) Urine Specific [place] 1.015 (1.005-1.035) Urine Protein 3+ (NEGATIVE) Urine Glucose (UA) Negative (NEGATIVE) Urine Ketones 2+ (NEGATIVE) Urine Blood 5+ (NEGATIVE) Urine Nitrite Positive (NEGATIVE) Urine Bilirubin 1+ (NEGATIVE) Urine Ictotest Positive (NEGATIVE) Urine Urobilinogen 4 MG/DL (0.0-1.0) Urine Leukocyte Esterase 2+ (NEGATIVE) Urine RBC 30-40 /HPF (0 - 2) Urine WBC 20-30 /HPF (0 - 2) Urine Squamous Epithelial Cells Many /LPF (NONE/OCC) Urine Amorphous Sediment Many /LPF (NONE) Urine Bacteria Many /HPF (NONE) Urine HCG, Qualitative Negative (NEGATIVE) Stool Occult Blood Negative (NEGATIVE) Ferritin 309 NG/ML (8-388) Vitamin B12 Level 317 PG/ML (193-986) Folate 7.8 NG/ML (8.6-58.9) Differential Total Cells Counted 100 Neutrophils % (Manual) 67 % (45-75) Lymphocytes % (Manual) 20 % (20-45) Monocytes % (Manual) 10 % (1-10) Eosinophils % (Manual) 2 % (0-3) Basophils % (Manual) 1 % (0-2) Band Neutrophils 0 % (0-8) Platelet Estimate Adequate Platelet Morphology Normal Hypochromasia 3+ Poikilocytosis 1+ Anisocytosis 3+ Microcytosis 2+ Schistocytes 1+ Phosphorus Level 1.1 MG/DL (2.5-4.9) Magnesium Level 2.0 MG/DL (1.8-2.4) C-Reactive Protein, Quantitative 8.3 mg/dL (0.00-0.90) Pro-B-Type Natriuretic Peptide 1221 pg/mL (0-125) Triglycerides Level 156 MG/DL (30-150) Cholesterol Level 145 MG/DL (< 200) LDL Cholesterol 100 mg/dL (<100) HDL Cholesterol 15 MG/DL (40-60) Cholesterol/HDL Ratio 9.7 (3.3-4.4) Thyroid Stimulating Hormone (TSH) 0.619 uiU/mL (0.358-3.740) Height (Feet): 5 Height (Inches): 4.00 Weight (Pounds): 169 Objective General: Awake and alert, nad HEENT: NC/AT. EOMI. Cardiovascular: RRR. S1 and S2 normal. No murmur appreciated Resp: Normal work of breathing. No cough, wheezing or crackles appreciated Abdomen: Abdomen is soft, nondistended. Nontender Rectal: No external hemorrhoids, no palpable internal hemorrhoids. ++ Firm stool in vault. Skin: Intact. No abrasions, laceration or rash over the exposed skin MSK: Normal tone and bulk. Moving all extremities Neuro: Awake and alert. Mentating appropriately. Geoffrey Callaway MD Jan 15, 2021 06:06
[2021-01-15 06:21] LABS: HEMATOCRIT 25.1 % (37.0-47.0); HEMOGLOBIN 7.6 G/DL (12.0-16.0); MEAN CORPUSCULAR VOLUME 70 FL (80-99); PLATELET COUNT 258 K/UL (150-450); RED CELL DISTRIBUTION WIDTH 36.7 % (11.6-14.8); WHITE BLOOD COUNT 7.6 K/UL (4.8-10.8)
[2021-01-15] MEDS: Phospha 250 Neutral tab ORAL SCH ×3 (09:11→18:11)
[2021-01-15] MEDS: Docusate 100mg cap ORAL SCH ×3 (09:11→18:11)
[2021-01-15] MEDS: medroxyPROGESTERone 10mg tab ORAL SCH ×2 (09:11→18:11)
--- NOTE | 2021-01-15 11:26 | Infectious Diseases Prog Note ---
Assessment/Plan Assessment/Plan IMPRESSION: Hematuria and pyuria, likely UTI. Severe iron deficiency anemia secondary to blood loss. Uterine fibroids. Hypokalemia. History of retinoblastoma. Elevation of bilirubin, Elevation of creatinine. RECOMMENDATION: We will continue with ceftriaxone until tomorrow Subjective ROS Limited/Unobtainable: No Constitutional: Reports: no symptoms Cardiovascular: Reports: other - chest pressure Gastrointestinal/Abdominal: Reports: no symptoms Genitourinary: Reports: hematuria Allergies: Coded Allergies: PENICILLINS (Verified Allergy, Severe, Rash, 10/03/17) SULFA (SULFONAMIDE ANTIBIOTICS) (Verified Allergy, Severe, Rash, 10/03/17) Objective Last 24 Hour Vital Signs Date Time Temp Pulse Resp B/P (MAP) Pulse Ox O2 Delivery O2 Flow Rate FiO2 01/15/21 09:00 Room Air 01/15/21 08:00 98.0 76 17 121/80 (94) 97 01/15/21 04:00 97.9 66 18 118/74 (89) 96 01/15/21 00:00 98.0 67 18 118/67 (84) 96 01/14/21 21:00 Room Air 01/14/21 20:00 98.9 72 18 107/72 (84) 96 01/14/21 16:00 98.3 74 19 110/67 (81) 96 01/14/21 12:00 97.9 79 20 105/58 (74) 97 Height (Feet): 5 Height (Inches): 4.00 Weight (Pounds): 169 HEENT: mucous membranes moist Respiratory/Chest: lungs clear Cardiovascular: normal rate Abdomen: soft, non tender Extremities: no edema Neurologic/Psychiatric: alert, oriented x 3, responsive Microbiology Date/Time Source Procedure Growth Status 01/13/21 01:07 Urine,Clean Catch Urine Culture - Final Mixed Gram Positive Organism Complete Laboratory Tests Test 01/15/21 05:20 White Blood Count 7.6 K/UL (4.8-10.8) Red Blood Count 3.60 M/UL (4.20-5.40) L Hemoglobin 7.6 G/DL (12.0-16.0) #L Hematocrit 25.1 % (37.0-47.0) #L Mean Corpuscular Volume 70 FL (80-99) #L Mean Corpuscular Hemoglobin 21.1 PG (27.0-31.0) L Mean Corpuscular Hemoglobin Concent 30.2 G/DL (32.0-36.0) L Red Cell Distribution Width 36.7 % (11.6-14.8) H Platelet Count 258 K/UL (150-450) Mean Platelet Volume 8.6 FL (6.5-10.1) Neutrophils (%) (Auto) % (45.0-75.0) Lymphocytes (%) (Auto) % (20.0-45.0) Monocytes (%) (Auto) % (1.0-10.0) Eosinophils (%) (Auto) % (0.0-3.0) Basophils (%) (Auto) % (0.0-2.0) Differential Total Cells Counted 100 Neutrophils % (Manual) 76 % (45-75) H Lymphocytes % (Manual) 20 % (20-45) Monocytes % (Manual) 3 % (1-10) Eosinophils % (Manual) 1 % (0-3) Basophils % (Manual) 0 % (0-2) Band Neutrophils 0 % (0-8) Platelet Estimate Adequate Platelet Morphology Normal Polychromasia 1+ Hypochromasia 2+ Poikilocytosis 1+ Anisocytosis 3+ Microcytosis 2+ Ovalocytes Occasional [place] Cells 1+ Schistocytes 1+ Current Medications Medications (Trade) Dose Ordered Sig/Jacquelin Route PRN Reason Start Time Stop Time Status Last Admin Dose Admin Ceftriaxone Sodium 1 gm/ Dextrose 55 ml @ 110 mls/hr Q24H IVPB 01/14/21 02:00 01/21/21 01:59 01/15/21 02:04 Docusate Sodium (Colace) 100 mg THREE TIMES A DAY ORAL 01/13/21 13:00 02/12/21 12:59 01/15/21 09:11 Folic Acid (Folate) 1 mg DAILY ORAL 01/13/21 13:00 02/12/21 12:59 01/15/21 09:11 Iron Sucrose 100 mg/Sodium Chloride 60 ml @ 240 mls/hr BEDTIME IVPB 01/13/21 21:00 01/18/21 20:59 01/14/21 20:37 Medroxyprogesterone Acetate (Provera) 10 mg BID ORAL 01/13/21 18:00 04/13/21 17:59 01/15/21 09:11 Ondansetron HCl (Zofran) 4 mg PRN PRN IVP Nausea & Vomiting 01/13/21 05:00 Pantoprazole (Protonix) 40 mg EVERY 12 HOURS ORAL 01/13/21 09:45 02/12/21 09:44 01/15/21 09:11 Phosphorus (Phospha 250 Neutral) 250 mg THREE TIMES A DAY ORAL 01/14/21 13:00 02/13/21 12:59 01/15/21 09:11 Potassium Chloride (K-Dur) 40 meq DAILY ORAL 01/13/21 13:00 04/13/21 12:59 01/15/21 09:11 Emory Bermeo MD Jan 15, 2021 11:26
--- NOTE | 2021-01-15 11:39 | Nephrology Progress Note ---
Assessment/Plan Problem List: (1) Electrolyte imbalance (2) Hypokalemia (3) Anemia (4) UTI (urinary tract infection) (5) DUB (dysfunctional uterine bleeding) (6) Hypophosphatemia Assessment Hypokalemia Severe anemia UTI History of uterine fibroid History of retinoblastoma Plan January 15: CBC reviewed. Hemoglobin higher. No CHEM panel drawn today. Will check electrolytes and serum phosphorus level for tomorrow. Medication list r eviewed. Continue per consultants. January 14: Phosphorus supplement as his phosphorus level is critically low. Medication list reviewed. Consultants notes reviewed. Continue per current management. Continue to monitor chemistry panel and hemoglobin and hematocrit. Stable from renal standpoint of view. Previously: Potassium supplement Monitor renal parameters electrolytes UTI treatment Anemia work-up Per consultants Subjective ROS Limited/Unobtainable: No Constitutional: Reports: malaise Objective Objective Last 24 Hour Vital Signs Date Time Temp Pulse Resp B/P (MAP) Pulse Ox O2 Delivery O2 Flow Rate FiO2 01/15/21 09:00 Room Air 01/15/21 08:00 98.0 76 17 121/80 (94) 97 01/15/21 04:00 97.9 66 18 118/74 (89) 96 01/15/21 00:00 98.0 67 18 118/67 (84) 96 01/14/21 21:00 Room Air 01/14/21 20:00 98.9 72 18 107/72 (84) 96 01/14/21 16:00 98.3 74 19 110/67 (81) 96 01/14/21 12:00 97.9 79 20 105/58 (74) 97 Intake and Output 01/14/21 01/15/21 19:00 07:00 Intake Total 600 ml 115 ml Balance 600 ml 115 ml Intake Oral 600 ml IV Total 115 ml # Voids 2 Current Medications Medications (Trade) Dose Ordered Sig/Jacquelin Route PRN Reason Start Time Stop Time Status Last Admin Dose Admin Ceftriaxone Sodium 1 gm/ Dextrose 55 ml @ 110 mls/hr Q24H IVPB 01/14/21 02:00 01/21/21 01:59 01/15/21 02:04 Docusate Sodium (Colace) 100 mg THREE TIMES A DAY ORAL 01/13/21 13:00 02/12/21 12:59 01/15/21 09:11 Folic Acid (Folate) 1 mg DAILY ORAL 01/13/21 13:00 02/12/21 12:59 01/15/21 09:11 Iron Sucrose 100 mg/Sodium Chloride 60 ml @ 240 mls/hr BEDTIME IVPB 01/13/21 21:00 01/18/21 20:59 01/14/21 20:37 Medroxyprogesterone Acetate (Provera) 10 mg BID ORAL 01/13/21 18:00 04/13/21 17:59 01/15/21 09:11 Ondansetron HCl (Zofran) 4 mg PRN PRN IVP Nausea & Vomiting 01/13/21 05:00 Pantoprazole (Protonix) 40 mg EVERY 12 HOURS ORAL 01/13/21 09:45 02/12/21 09:44 01/15/21 09:11 Phosphorus (Phospha 250 Neutral) 250 mg THREE TIMES A DAY ORAL 01/14/21 13:00 02/13/21 12:59 01/15/21 09:11 Potassium Chloride (K-Dur) 40 meq DAILY ORAL 01/13/21 13:00 04/13/21 12:59 01/15/21 09:11 Laboratory Tests 01/15/21 05:20: White Blood Count 7.6, Red Blood Count 3.60L, Hemoglobin 7.6#L, Hematocrit 25.1#L, Mean Corpuscular Volume 70#L, Mean Corpuscular Hemoglobin 21.1L, Mean Corpuscular Hemoglobin Concent 30.2L, Red Cell Distribution Width 36.7H, Platelet Count 258, Mean Platelet Volume 8.6, Neutrophils (%) (Auto) , Lymphocytes (%) (Auto) , Monocytes (%) (Auto) , Eosinophils (%) (Auto) , Basophils (%) (Auto) , Differential Total Cells Counted 100, Neutrophils % (Manual) 76H, Lymphocytes % (Manual) 20, Monocytes % (Manual) 3, Eosinophils % (Manual) 1, Basophils % (Manual) 0, Band Neutrophils 0, Platelet Estimate Adequate, Platelet Morphology Normal, Polychromasia 1+, Hypochromasia 2+, Poikilocytosis 1+, Anisocytosis 3+, Microcytosis 2+, Ovalocytes Occasional, [place] Cells 1+, Schistocytes 1+ Height (Feet): 5 Height (Inches): 4.00 Weight (Pounds): 169 General Appearance: no apparent distress Cardiovascular: normal rate Respiratory/Chest: decreased breath sounds Abdomen: soft Objective No change Jaylon Gardner MD Jan 15, 2021 11:39
[2021-01-15] MEDS ORDERED: Tylenol #3 tab (300mg/30mg) ORAL PRN (12:47)
[2021-01-15] MEDS: HYDROmorphone 1mg/ml Carpuject IVP PRN (16:00)
[2021-01-15] MEDS ORDERED: Metoclopramide 10mg/2ml Inj IVP PRN ×2 (20:15→21:15)
[2021-01-15] MEDS: Iron Sucrose 100 MG in NS 55 ML IVPB SCH (20:49)
[2021-01-15] MEDS: D5 1/2NS 1,000 ML IV SCH (20:56)
--- NOTE | 2021-01-15 21:08 | General Progress Note ---
Subjective ROS Limited/Unobtainable: Yes Allergies: Coded Allergies: PENICILLINS (Verified Allergy, Severe, Rash, 10/03/17) SULFA (SULFONAMIDE ANTIBIOTICS) (Verified Allergy, Severe, Rash, 10/03/17) Objective Last 24 Hour Vital Signs Date Time Temp Pulse Resp B/P (MAP) Pulse Ox O2 Delivery O2 Flow Rate FiO2 01/15/21 16:30 98.0 01/15/21 16:00 98.1 61 18 119/71 (87) 99 01/15/21 13:38 98.0 01/15/21 12:00 97.3 63 20 134/81 (98) 95 01/15/21 09:00 Room Air 01/15/21 08:00 98.0 76 17 121/80 (94) 97 01/15/21 04:00 97.9 66 18 118/74 (89) 96 01/15/21 00:00 98.0 67 18 118/67 (84) 96 Intake and Output 01/14/21 01/15/21 19:00 07:00 Intake Total 600 ml 115 ml Balance 600 ml 115 ml Intake Oral 600 ml IV Total 115 ml # Voids 2 Laboratory Tests 01/15/21 05:20: White Blood Count 7.6, Red Blood Count 3.60L, Hemoglobin 7.6#L, Hematocrit 25.1#L, Mean Corpuscular Volume 70#L, Mean Corpuscular Hemoglobin 21.1L, Mean Corpuscular Hemoglobin Concent 30.2L, Red Cell Distribution Width 36.7H, Platelet Count 258, Mean Platelet Volume 8.6, Neutrophils (%) (Auto) , Lymphocytes (%) (Auto) , Monocytes (%) (Auto) , Eosinophils (%) (Auto) , Basophils (%) (Auto) , Differential Total Cells Counted 100, Neutrophils % (Manual) 76H, Lymphocytes % (Manual) 20, Monocytes % (Manual) 3, Eosinophils % (Manual) 1, Basophils % (Manual) 0, Band Neutrophils 0, Platelet Estimate Adequate, Platelet Morphology Normal, Polychromasia 1+, Hypochromasia 2+, Poikilocytosis 1+, Anisocytosis 3+, Microcytosis 2+, Ovalocytes Occasional, [place] Cells 1+, Schistocytes 1+ Height (Feet): 5 Height (Inches): 4.00 Weight (Pounds): 169 Assessment/Plan Problem List: (1) Hypokalemia ICD Codes: E87.6 - Hypokalemia SNOMED: 12666892 (2) Fibroids ICD Codes: D25.9 - Leiomyoma of uterus, unspecified SNOMED: 10719329 (3) Anemia ICD Codes: D64.9 - Anemia, unspecified SNOMED: 854521530 (4) Electrolyte imbalance ICD Codes: E87.8 - Other disorders of electrolyte and fluid balance, not elsewhere classified SNOMED: 429338692 (5) DUB (dysfunctional uterine bleeding) ICD Codes: N93.8 - Other specified abnormal uterine and vaginal bleeding SNOMED: 01795405 (6) UTI (urinary tract infection) ICD Codes: N39.0 - Urinary tract infection, site not specified SNOMED: 93429568 Status: progressing Assessment/Plan: monitor for bleeding anemia is improving s/p transfusion vaginal bleeding check h/h Jose Garcia MD Jan 15, 2021 21:07
--- NOTE | 2021-01-15 21:15 | General Progress Note ---
Subjective Allergies: Coded Allergies: PENICILLINS (Verified Allergy, Severe, Rash, 10/03/17) SULFA (SULFONAMIDE ANTIBIOTICS) (Verified Allergy, Severe, Rash, 10/03/17) Objective Last 24 Hour Vital Signs Date Time Temp Pulse Resp B/P (MAP) Pulse Ox O2 Delivery O2 Flow Rate FiO2 01/15/21 16:30 98.0 01/15/21 16:00 98.1 61 18 119/71 (87) 99 01/15/21 13:38 98.0 01/15/21 12:00 97.3 63 20 134/81 (98) 95 01/15/21 09:00 Room Air 01/15/21 08:00 98.0 76 17 121/80 (94) 97 01/15/21 04:00 97.9 66 18 118/74 (89) 96 01/15/21 00:00 98.0 67 18 118/67 (84) 96 Intake and Output 01/14/21 01/15/21 19:00 07:00 Intake Total 600 ml 115 ml Balance 600 ml 115 ml Intake Oral 600 ml IV Total 115 ml # Voids 2 Laboratory Tests 01/15/21 05:20: White Blood Count 7.6, Red Blood Count 3.60L, Hemoglobin 7.6#L, Hematocrit 25.1#L, Mean Corpuscular Volume 70#L, Mean Corpuscular Hemoglobin 21.1L, Mean Corpuscular Hemoglobin Concent 30.2L, Red Cell Distribution Width 36.7H, Platelet Count 258, Mean Platelet Volume 8.6, Neutrophils (%) (Auto) , Lymphocytes (%) (Auto) , Monocytes (%) (Auto) , Eosinophils (%) (Auto) , Basophils (%) (Auto) , Differential Total Cells Counted 100, Neutrophils % (Manual) 76H, Lymphocytes % (Manual) 20, Monocytes % (Manual) 3, Eosinophils % (Manual) 1, Basophils % (Manual) 0, Band Neutrophils 0, Platelet Estimate Adequate, Platelet Morphology Normal, Polychromasia 1+, Hypochromasia 2+, Poikilocytosis 1+, Anisocytosis 3+, Microcytosis 2+, Ovalocytes Occasional, Chromo Cells 1+, Schistocytes 1+ Height (Feet): 5 Height (Inches): 4.00 Weight (Pounds): 169 Assessment/Plan Status: progressing Assessment/Plan: Assessment - RUQ pain and TTP - N/V - Rising LFT - R/o cholecystitis - Anemia, presumed due to [employer] loss, OB (-) - fibroids Recommendations - NPO x meds - IVF - abx per ID - follow labs and exam - HIDA scan - U/S to re-evaluate GB and CBD - Surgical opinion Thank you MD Mounika Toro Payman MD Jan 15, 2021 21:15
--- NOTE | 2021-01-15 22:59 | Consultation ---
DATE OF CONSULTATION: 01/15/2021 GASTROENTEROLOGY CONSULTATION CONSULTING PHYSICIAN: Eligio Ribera MD CHIEF COMPLAINT: I was asked to see this patient by Dr. Jose Harvey for evaluation of abdominal issues. HISTORY OF PRESENT ILLNESS: The patient is a 50-year-old woman who came into the hospital due to renal failure, electrolyte disturbances, and severe anemia. Patient has had a long-standing history of large multiple fibroids in her uterus and her periods were significant in the amount of bleeding they cause. Patient stated that she was advised to have her uterus removed, but she has been declining surgery. The patient also complains of epigastric abdominal discomfort and also tenderness to palpation. She has had no nausea or vomiting, but in the hospital she did have vomited today. Her bowel movements have been regular. She has never had endoscopy or colonoscopy and denies any hematochezia. Her stool occult blood during this admission has been negative. Her liver tests have some abnormalities suggesting obstruction. Most notably, her bilirubin is now 4 today. She had an elevated white count on admission, but she has been placed on antibiotics and this has declined. PAST MEDICAL HISTORY: History of multiple fibroids, history of abnormal uterine bleeding, history of conjunctivitis. PAST SURGICAL HISTORY: Status post . ALLERGIES: Penicillin, sulfa. FAMILY HISTORY: Noncontributory. SOCIAL HISTORY: Patient does not smoke or drink alcohol. REVIEW OF SYSTEMS: Otherwise negative. PHYSICAL EXAMINATION: GENERAL: Well-developed, well-nourished woman, seen in her room. HEENT: Normocephalic and atraumatic. NECK: Supple. CHEST: Clear to auscultation. CARDIOVASCULAR: Revealed a regular rate. ABDOMEN: Soft with tenderness in the upper quadrant with some mild guarding, but no rebound. EXTREMITIES: Revealed no edema. LABORATORY DATA: Noted. ASSESSMENT: This patient has right upper quadrant abdominal tenderness as well as rising bilirubin, which is concerning for gallbladder or biliary process. The CT scan did not show any acute changes, but it was done without IV contrast. An abdominal ultrasound can be done to evaluate the bile duct and the gallbladder in another fashion. If necessary, MRI can also be done. In the meantime, however, given the right upper quadrant pain, I will order a HIDA scan to rule out acute cholecystitis. Patient will be made NPO with IV fluids. A surgical consultation would be advisable. RECOMMENDATIONS: Per above discussion and per orders written in the chart. Additional orders including hepatitis serologies have also been ordered. Thank you for asking me to participate in the care of this patient. Eligio Ribera M.D. DR: ALDO JOB#: [id number] CC: DIA
[2021-01-16] MEDS: cefTRIAXone 1 GM in D5W 55 ML IVPB SCH (01:21)
[2021-01-16 04:00] VITALS: BP 120/65
[2021-01-16] MEDS: HYDROmorphone 1mg/ml Carpuject IVP PRN ×2 (04:52→21:22)
[2021-01-16] MEDS: D5 1/2NS 1,000 ML IV SCH ×2 (04:57→16:07)
--- NOTE | 2021-01-16 06:20 | Hematology/Onc Progress Note ---
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 -> in the past recommend at [facility], may still need procedure -> anemia panel reviewed --> started on iv iron --> occult was negative --> hgb 5.4-->5.6->7.6 --> on provera 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 [employer] # Leukocytosis likely due to reactive process --> wbc 16-->9.7 --> continue on abx ctx --> smear has been reviewed # Abd pain RUQ --> pending hida scan # UTI (urinary tract infection) --> continue for abx ctx # Hypokalemia --> replete with k # Dvt ppx scds Appreciate consultation and reza Rn Subjective HEENT: Denies: no symptoms, eye pain, blurred vision, tearing, double vision, ear pain, ear discharge, nose pain, nose congestion, throat pain, throat swellin g, mouth pain, mouth swelling, other Cardiovascular: Denies: no symptoms, chest pain, edema, irregular heart rate, lightheadedness, palpitations, syncope, other Respiratory: Denies: no symptoms, cough, shortness of breath, SOB with excertion, SOB at rest, sputum, wheezing, other Gastrointestinal/Abdominal: Denies: no symptoms, abdomen distended, abdominal pain, black stools, tarry stools, blood in stool, constipated, diarrhea, difficulty swallowing, nausea, poor appetite, poor fluid intake, rectal bleeding, vomiting, other Genitourinary: Denies: no symptoms, burning, discharge, frequency, flank pain, hematuria, incontinence, pain, urgency, other Neurologic/Psychiatric: Denies: no symptoms, anxiety, depressed, emotional problems, headache, numbness, paresthesia, pre-existing deficit, seizure, tingling, tremors, weakness, other Endocrine: Denies: no symptoms, excessive sweating, flushing, intolerance to cold, intolerance to heat, increased hunger, increased thirst, increased urine, unexplained weight gain, unexplained weight loss, other Hematologic/Lymphatic: Denies: no symptoms, anemia, easy bleeding, easy bru ising, adenopathy, other Allergies: Coded Allergies: PENICILLINS (Verified Allergy, Severe, Rash, 10/03/17) SULFA (SULFONAMIDE ANTIBIOTICS) (Verified Allergy, Severe, Rash, 10/03/17) Subjective 01/14 meds reviewed, labs noted, no bleeding, no major events, hgb remains low 01/15 on provera bid therapy, 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 [employer], to f/u outpatient, cbc pending 01/16 on provera, hida scan pending, labs to be repeated today Objective Objective Current Medications Medications (Trade) Dose Ordered Sig/Jacquelin Route PRN Reason Start Time Stop Time Status Last Admin Dose Admin Ceftriaxone Sodium 1 gm/ Dextrose 55 ml @ 110 mls/hr Q24H IVPB 01/14/21 02:00 01/21/21 01:59 01/16/21 01:21 Dextrose/Sodium Chloride 1,000 ml @ 100 mls/hr Q10H IV 01/15/21 20:15 02/14/21 20:14 01/16/21 04:57 Docusate Sodium (Colace) 100 mg THREE TIMES A DAY ORAL 01/13/21 13:00 02/12/21 12:59 01/15/21 18:11 Folic Acid (Folate) 1 mg DAILY ORAL 01/13/21 13:00 02/12/21 12:59 01/15/21 09:11 Hydromorphone HCl (Dilaudid) 0.5 mg Q3H PRN IVP For Pain 4-6 01/15/21 16:45 01/22/21 16:44 01/16/21 04:52 Hydromorphone HCl (Dilaudid) 1 mg Q3H PRN IVP Pain 7-10 01/15/21 15:30 01/22/21 15:29 01/15/21 16:00 Iron Sucrose 100 mg/Sodium Chloride 60 ml @ 240 mls/hr BEDTIME IVPB 01/13/21 21:00 01/18/21 20:59 01/14/21 20:37 Medroxyprogesterone Acetate (Provera) 10 mg BID ORAL 01/13/21 18:00 04/13/21 17:59 01/15/21 18:11 Metoclopramide HCl (Reglan) 5 mg Q6H PRN IVP Nausea & Vomiting 2nd choice 01/15/21 21:15 02/14/21 20:14 Ondansetron HCl (Zofran) 4 mg Q4H PRN IVP Nausea & Vomiting 01/15/21 16:45 02/14/21 16:44 01/16/21 04:52 Pantoprazole (Protonix) 40 mg EVERY 12 HOURS ORAL 01/13/21 09:45 02/12/21 09:44 01/15/21 20:52 Phosphorus (Phospha 250 Neutral) 250 mg THREE TIMES A DAY ORAL 01/14/21 13:00 02/13/21 12:59 01/15/21 18:11 Potassium Chloride (K-Dur) 40 meq DAILY ORAL 01/13/21 13:00 04/13/21 12:59 01/15/21 09:11 Last 24 Hour Vital Signs Date Time Temp Pulse Resp B/P (MAP) Pulse Ox O2 Delivery O2 Flow Rate FiO2 01/16/21 04:00 98.7 76 20 120/65 (83) 95 01/15/21 23:56 98.3 55 20 113/67 (82) 96 01/15/21 21:00 Room Air 01/15/21 20:00 98.2 58 20 118/78 (91) 98 01/15/21 16:30 98.0 01/15/21 16:00 98.1 61 18 119/71 (87) 99 01/15/21 13:38 98.0 01/15/21 12:00 97.3 63 20 134/81 (98) 95 01/15/21 09:00 Room Air 01/15/21 08:00 98.0 76 17 121/80 (94) 97 01/15/21 04:00 97.9 66 18 118/74 (89) 96 01/15/21 00:00 98.0 67 18 118/67 (84) 96 01/14/21 21:00 Room Air 01/14/21 20:00 98.9 72 18 107/72 (84) 96 01/14/21 16:00 98.3 74 19 110/67 (81) 96 01/14/21 12:00 97.9 79 20 105/58 (74) 97 01/14/21 09:00 Room Air 01/14/21 08:00 99.1 79 19 110/63 (79) 98 Intake and Output 01/15/21 01/16/21 19:00 07:00 Intake Total 720 ml 400 ml Balance 720 ml 400 ml Intake Oral 720 ml IV Total 400 ml Labs Test 01/13/21 09:00 01/14/21 04:55 01/15/21 05:20 01/16/21 05:20 Sodium Level 145 MMOL/L (136-145) 142 MMOL/L (136-145) Potassium Level 3.3 MMOL/L (3.5-5.1) 4.0 MMOL/L (3.5-5.1) Chloride Level 112 MMOL/L (98-107) 111 MMOL/L (98-107) Carbon Dioxide Level 22 MMOL/L (21-32) 21 MMOL/L (21-32) Anion Gap 11 mmol/L (5-15) 11 mmol/L (5-15) Blood Urea Nitrogen 11 mg/dL (7-18) 12 mg/dL (7-18) Creatinine 1.7 MG/DL (0.55-1.30) 1.9 MG/DL (0.55-1.30) Estimat Glomerular Filtration Rate 38.8 mL/min (>60) 34.1 mL/min (>60) Glucose Level 126 MG/DL (74-106) 114 MG/DL (74-106) Calcium Level 7.9 MG/DL (8.5-10.1) 8.3 MG/DL (8.5-10.1) Ferritin 309 NG/ML (8-388) Vitamin B12 Level 317 PG/ML (193-986) Folate 7.8 NG/ML (8.6-58.9) White Blood Count 10.7 K/UL (4.8-10.8) 7.6 K/UL (4.8-10.8) Red Blood Count 2.91 M/UL (4.20-5.40) 3.60 M/UL (4.20-5.40) Hemoglobin 5.6 G/DL (12.0-16.0) 7.6 G/DL (12.0-16.0) Hematocrit 18.6 % (37.0-47.0) 25.1 % (37.0-47.0) Mean Corpuscular Volume 64 FL (80-99) 70 FL (80-99) Mean Corpuscular Hemoglobin 19.3 PG (27.0-31.0) 21.1 PG (27.0-31.0) Mean Corpuscular Hemoglobin Concent 30.1 G/DL (32.0-36.0) 30.2 G/DL (32.0-36.0) Red Cell Distribution Width 39.2 % (11.6-14.8) 36.7 % (11.6-14.8) Platelet Count 283 K/UL (150-450) 258 K/UL (150-450) Mean Platelet Volume 8.8 FL (6.5-10.1) 8.6 FL (6.5-10.1) Neutrophils (%) (Auto) % (45.0-75.0) % (45.0-75.0) Lymphocytes (%) (Auto) % (20.0-45.0) % (20.0-45.0) Monocytes (%) (Auto) % (1.0-10.0) % (1.0-10.0) Eosinophils (%) (Auto) % (0.0-3.0) % (0.0-3.0) Basophils (%) (Auto) % (0.0-2.0) % (0.0-2.0) Differential Total Cells Counted 100 100 Neutrophils % (Manual) 67 % (45-75) 76 % (45-75) Lymphocytes % (Manual) 20 % (20-45) 20 % (20-45) Monocytes % (Manual) 10 % (1-10) 3 % (1-10) Eosinophils % (Manual) 2 % (0-3) 1 % (0-3) Basophils % (Manual) 1 % (0-2) 0 % (0-2) Band Neutrophils 0 % (0-8) 0 % (0-8) Platelet Estimate Adequate Adequate Platelet Morphology Normal Normal Hypochromasia 3+ 2+ Poikilocytosis 1+ 1+ Anisocytosis 3+ 3+ Microcytosis 2+ 2+ Schistocytes 1+ 1+ Phosphorus Level 1.1 MG/DL (2.5-4.9) Magnesium Level 2.0 MG/DL (1.8-2.4) Total Bilirubin 4.1 MG/DL (0.2-1.0) Direct Bilirubin 0.7 MG/DL (0.0-0.3) Aspartate Amino Transf (AST/SGOT) 117 U/L (15-37) Alanine Aminotransferase (ALT/SGPT) 36 U/L (12-78) Alkaline Phosphatase 58 U/L (46-116) C-Reactive Protein, Quantitative 8.3 mg/dL (0.00-0.90) Pro-B-Type Natriuretic Peptide 1221 pg/mL (0-125) Total Protein 6.5 G/DL (6.4-8.2) Albumin 2.7 G/DL (3.4-5.0) Globulin 3.8 g/dL Albumin/Globulin Ratio 0.7 (1.0-2.7) Triglycerides Level 156 MG/DL (30-150) Cholesterol Level 145 MG/DL (< 200) LDL Cholesterol 100 mg/dL (<100) HDL Cholesterol 15 MG/DL (40-60) Cholesterol/HDL Ratio 9.7 (3.3-4.4) Thyroid Stimulating Hormone (TSH) 0.619 uiU/mL (0.358-3.740) Polychromasia 1+ Ovalocytes Occasional Zoar Cells 1+ Height (Feet): 5 Height (Inches): 4.00 Weight (Pounds): 169 Objective General: Awake and alert, nad HEENT: NC/AT. EOMI. Cardiovascular: RRR. S1 and S2 normal. No murmur appreciated Resp: Normal work of breathing. No cough, wheezing or crackles appreciated Abdomen: Abdomen is soft, nondistended. Nontender Rectal: No external hemorrhoids, no palpable internal hemorrhoids. ++ Firm stool in vault. Skin: Intact. No abrasions, laceration or rash over the exposed skin MSK: Normal tone and bulk. Moving all extremities Neuro: Awake and alert. Mentating appropriately. Geoffrey Callaway MD Jan 16, 2021 06:20
[2021-01-16 06:31] LABS: BASOPHILS % (AUTO) 0.6 % (0.0-2.0); EOSINOPHILS % (AUTO) 2.3 % (0.0-3.0); HEMATOCRIT 27.5 % (37.0-47.0); HEMOGLOBIN 8.1 G/DL (12.0-16.0); LYMPHOCYTES % (AUTO) 19.2 % (20.0-45.0); MEAN CORPUSCULAR VOLUME 74 FL (80-99); MONOCYTES % (AUTO) 7.1 % (1.0-10.0); NEUTROPHILS % (AUTO) 70.8 % (45.0-75.0); PLATELET COUNT 258 K/UL (150-450); RED BLOOD COUNT 3.71 M/UL (4.20-5.40); RED CELL DISTRIBUTION WIDTH 36.1 % (11.6-14.8); WHITE BLOOD COUNT 6.8 K/UL (4.8-10.8)
[2021-01-16 07:04] LABS: ALBUMIN 2.7 G/DL (3.4-5.0); ALBUMIN/GLOBULIN RATIO 0.8 (1.0-2.7); BILIRUBIN,TOTAL 2.5 MG/DL (0.2-1.0); CALCIUM 8.1 MG/DL (8.5-10.1); CREATININE 1.7 MG/DL (0.55-1.30); POTASSIUM 3.5 MMOL/L (3.5-5.1)
[2021-01-16 08:00] VITALS: BP 107/54
[2021-01-16] MEDS: Docusate 100mg cap ORAL SCH ×3 (09:00→17:21)
[2021-01-16] MEDS: Phospha 250 Neutral tab ORAL SCH (09:00)
--- NOTE | 2021-01-16 10:12 | Consultation ---
History of Present Illness General Date patient seen: Jan 16, 2021 Reason for Hospitalization: General Complaint Present Illness HPI 50-year-old woman who came into the hospital due to renal failure, electrolyte disturbances, and severe anemia. Patient has had a long-standing history of large multiple fibroids in her uterus and her periods were significant in the amount of bleeding they cause. Patient stated that she was advised to have her uterus removed, but she has been declining surgery. The patient also complains of epigastric abdominal discomfort and also tenderness to palpation. She has had no nausea or vomiting, but in the hospital she did have vomited. Considerations for possible acute cholecystitis surgery called to evaluate assist with care patient seen, patient evaluate, chart reviewed. Mainly tender in the right upper quadrant epigastric region. Currently no nausea vomiting fever chills. No more bowel movements. Labs noted. Transfuse as per heme. GI input appreciated. Allergies: Coded Allergies: PENICILLINS (Verified Allergy, Severe, Rash, 10/03/17) SULFA (SULFONAMIDE ANTIBIOTICS) (Verified Allergy, Severe, Rash, 10/03/17) COVID-19 Screening Contact w/high risk pt: No Experienced COVID-19 symptoms?: No Medication History Scheduled PRN Naproxen* (Naproxen*), 375 MG ORAL TWICE A DAY PRN for For Pain, (Reported) Discontinued Medications Medroxyprogesterone Acet* (Provera*), 10 MG ORAL DAILY, (Reported) Discontinued Reason: Therapy completed Ofloxacin (Ocuflox), 2 ML OP TID Discontinued Reason: Therapy completed Tetrahydrz/Dext 70/Peg 400/Pvp (Visine Advanced Eye Drop), 1 ML OP TID Discontinued Reason: Therapy completed Patient History History Provided By: Patient, Medical Record, PMD Healthcare decision maker Resuscitation status Advanced Directive on File Past Medical/Surgical History Past Medical/Surgical History: (1) Abdominal pain (2) Bacterial conjunctivitis of both eyes (3) Hypokalemia (4) Anemia (5) Electrolyte imbalance (6) DUB (dysfunctional uterine bleeding) (7) UTI (urinary tract infection) (8) Hypophosphatemia (9) Fibroids Review of Systems Review of Symptoms General ROS: no weight loss or fever Psychological ROS: no depression or mood changes, no memory loss Ophthalmic ROS: no visual changes or eye irritation ENT ROS: no nasal congestion, hearing loss, dizziness Allergy and Immunology ROS: no allergic symptoms or urticaria Hematological and Lymphatic ROS: no swollen glands, unusual bleeding or bruising Endocrine ROS: no polyuria, polydipsia, weight changes, temperature intolerance Respiratory ROS: no cough, shortness of breath, or wheezing Cardiovascular ROS: no chest pain or dyspnea on exertion Gastrointestinal ROS: denies abdominal pain, bright red blood in stool. Musculoskeletal ROS: no myalgias or arthralgias Neurological ROS: no TIA or stroke symptoms Dermatological ROS: no new or changing skin lesions, rashes or pruritis Physical Exam Physical Exam General appearance: alert, cooperative, no distress, appears stated age Head: Normocephalic, without obvious abnormality, atraumatic Eyes: conjunctivae/corneas clear. PERRL, EOM's intact. Fundi benign Throat: Lips, mucosa, and tongue normal. Teeth and gums normal Neck: supple, symmetrical, trachea midline, no adenopathy, thyroid: not enlarged, symmetric, no tenderness/mass/nodules, no carotid bruit and no JVD Lungs: clear to auscultation bilaterally Heart: regular rate and rhythm, S1, S2 normal, no murmur, click, rub or gallop Abdomen: soft, right upper quadrant-tender. Bowel sounds normal. No masses, no organomegaly Extremities: extremities normal, atraumatic, no cyanosis or edema Pulses: 2+ and symmetric Skin: Skin color, texture, turgor normal. No rashes or lesions Neurologic: Grossly normal Last 24 Hour Vital Signs Date Time Temp Pulse Resp B/P (MAP) Pulse Ox O2 Delivery O2 Flow Rate FiO2 01/16/21 08:50 Room Air 01/16/21 08:00 99.4 74 18 107/54 (71) 98 01/16/21 04:00 98.7 76 20 120/65 (83) 95 01/15/21 23:56 98.3 55 20 113/67 (82) 96 01/15/21 21:00 Room Air 01/15/21 20:00 98.2 58 20 118/78 (91) 98 01/15/21 16:30 98.0 01/15/21 16:00 98.1 61 18 119/71 (87) 99 01/15/21 13:38 98.0 01/15/21 12:00 97.3 63 20 134/81 (98) 95 Intake and Output 01/15/21 01/16/21 19:00 07:00 Intake Total 720 ml 755 ml Balance 720 ml 755 ml Intake Oral 720 ml IV Total 755 ml # Voids 1 Laboratory Tests Test 01/16/21 05:20 White Blood Count 6.8 K/UL (4.8-10.8) Red Blood Count 3.71 M/UL (4.20-5.40) L Hemoglobin 8.1 G/DL (12.0-16.0) L Hematocrit 27.5 % (37.0-47.0) L Mean Corpuscular Volume 74 FL (80-99) L Mean Corpuscular Hemoglobin 21.7 PG (27.0-31.0) L Mean Corpuscular Hemoglobin Concent 29.3 G/DL (32.0-36.0) L Red Cell Distribution Width 36.1 % (11.6-14.8) H Platelet Count 258 K/UL (150-450) Mean Platelet Volume 9.7 FL (6.5-10.1) Neutrophils (%) (Auto) 70.8 % (45.0-75.0) Lymphocytes (%) (Auto) 19.2 % (20.0-45.0) L Monocytes (%) (Auto) 7.1 % (1.0-10.0) Eosinophils (%) (Auto) 2.3 % (0.0-3.0) Basophils (%) (Auto) 0.6 % (0.0-2.0) Prothrombin Time 11.1 SEC (9.30-11.50) Prothromb Time International Ratio 1.0 (0.9-1.1) Activated Partial Thromboplast Time 29 SEC (23-33) Sodium Level 142 MMOL/L (136-145) Potassium Level 3.5 MMOL/L (3.5-5.1) Chloride Level 110 MMOL/L (98-107) H Carbon Dioxide Level 21 MMOL/L (21-32) Anion Gap 11 mmol/L (5-15) Blood Urea Nitrogen 11 mg/dL (7-18) Creatinine 1.7 MG/DL (0.55-1.30) H Estimat Glomerular Filtration Rate 38.8 mL/min (>60) Glucose Level 109 MG/DL (74-106) H Calcium Level 8.1 MG/DL (8.5-10.1) L Phosphorus Level 4.0 MG/DL (2.5-4.9) Magnesium Level 2.2 MG/DL (1.8-2.4) Total Bilirubin 2.5 MG/DL (0.2-1.0) H Direct Bilirubin 1.0 MG/DL (0.0-0.3) H Gamma Glutamyl Transpeptidase 23 U/L (5-85) Aspartate Amino Transf (AST/SGOT) 47 U/L (15-37) H Alanine Aminotransferase (ALT/SGPT) 25 U/L (12-78) Alkaline Phosphatase 55 U/L (46-116) C-Reactive Protein, Quantitative 19.5 mg/dL (0.00-0.90) H Total Protein 6.3 G/DL (6.4-8.2) L Albumin 2.7 G/DL (3.4-5.0) L Globulin 3.6 g/dL Albumin/Globulin Ratio 0.8 (1.0-2.7) L Hepatitis A IgM Antibody Pending Hepatitis B Surface Antigen Pending Hepatitis B Core IgM Antibody Pending Hepatitis C Antibody Pending Height (Feet): 5 Height (Inches): 4.00 Weight (Pounds): 169 Medications Current Medications Medications (Trade) Dose Ordered Sig/Jacquelin Route PRN Reason Start Time Stop Time Status Last Admin Dose Admin Ceftriaxone Sodium 1 gm/ Dextrose 55 ml @ 110 mls/hr Q24H IVPB 01/14/21 02:00 01/21/21 01:59 01/16/21 01:21 Dextrose/Sodium Chloride 1,000 ml @ 100 mls/hr Q10H IV 01/15/21 20:15 02/14/21 20:14 01/16/21 04:57 Docusate Sodium (Colace) 100 mg THREE TIMES A DAY ORAL 01/13/21 13:00 02/12/21 12:59 01/15/21 18:11 Folic Acid (Folate) 1 mg DAILY ORAL 01/13/21 13:00 02/12/21 12:59 01/15/21 09:11 Hydromorphone HCl (Dilaudid) 0.5 mg Q3H PRN IVP For Pain 4-6 01/15/21 16:45 01/22/21 16:44 01/16/21 04:52 Hydromorphone HCl (Dilaudid) 1 mg Q3H PRN IVP Pain 7-10 01/15/21 15:30 01/22/21 15:29 01/15/21 16:00 Iron Sucrose 100 mg/Sodium Chloride 60 ml @ 240 mls/hr BEDTIME IVPB 01/13/21 21:00 01/18/21 20:59 01/14/21 20:37 Medroxyprogesterone Acetate (Provera) 10 mg BID ORAL 01/13/21 18:00 04/13/21 17:59 01/15/21 18:11 Metoclopramide HCl (Reglan) 5 mg Q6H PRN IVP Nausea & Vomiting 2nd choice 01/15/21 21:15 02/14/21 20:14 Ondansetron HCl (Zofran) 4 mg Q4H PRN IVP Nausea & Vomiting 01/15/21 16:45 02/14/21 16:44 01/16/21 04:52 Pantoprazole (Protonix) 40 mg EVERY 12 HOURS ORAL 01/13/21 09:45 02/12/21 09:44 01/15/21 20:52 Phosphorus (Phospha 250 Neutral) 250 mg THREE TIMES A DAY ORAL 01/14/21 13:00 02/13/21 12:59 01/15/21 18:11 Potassium Chloride (K-Dur) 40 meq DAILY ORAL 01/13/21 13:00 04/13/21 12:59 01/15/21 09:11 Assessment/Plan Problem List: (1) Hypokalemia ICD Codes: E87.6 - Hypokalemia SNOMED: 01653507 (2) Anemia ICD Codes: D64.9 - Anemia, unspecified SNOMED: 693111663 (3) Electrolyte imbalance ICD Codes: E87.8 - Other disorders of electrolyte and fluid balance, not elsewhere classified SNOMED: 939450617 (4) DUB (dysfunctional uterine bleeding) ICD Codes: N93.8 - Other specified abnormal uterine and vaginal bleeding SNOMED: 96500394 (5) UTI (urinary tract infection) ICD Codes: N39.0 - Urinary tract infection, site not specified SNOMED: 63659341 (6) Hypophosphatemia ICD Codes: E83.39 - Other disorders of phosphorus metabolism SNOMED: 8062296 (7) Fibroids ICD Codes: D25.9 - Leiomyoma of uterus, unspecified SNOMED: 01877134 (8) Abdominal pain Assessment & Plan: 50-year-old female severe anemia from vaginal bleeding from uterine fibroids. Transfuse PRBC. Currently complaining of abdominal pain and tender in the epigastric right upper quadrant region. CT reviewed no significant findings other than stated in CT report. Labs noted T bili elevated direct normal likely from bleeding and heme related. LFTs okay. Potential for cholecystitis given the location of the pain in the examination. Ultrasound ordered and pending. HIDA ordered and pending. Will discuss with the patient and medical teams findings of imaging once available and considerations if necessary for surgery. Thank you for let me participate patient's care will follow with recommendations ICD Codes: R10.9 - Unspecified abdominal pain SNOMED: 59859782 (9) Bacterial conjunctivitis of both eyes ICD Codes: H10.9 - Unspecified conjunctivitis SNOMED: 178165404 Jefe Bond Jan 16, 2021 10:11
[2021-01-16 11:37] VITALS: BP 102/53
--- NOTE | 2021-01-16 12:49 | Nephrology Progress Note ---
Assessment/Plan Problem List: (1) Electrolyte imbalance (2) Hypokalemia (3) Anemia (4) UTI (urinary tract infection) (5) DUB (dysfunctional uterine bleeding) (6) Hypophosphatemia Assessment Hypokalemia Severe anemia UTI History of uterine fibroid History of retinoblastoma Plan January 16: Hemoglobin higher. Phosphorus level within normal limit. Electrolytes within normal limit. Continue slow hydration. Serum creatinine at 1.7. Continue slow hydration. January 15: CBC reviewed. Hemoglobin higher. No CHEM panel drawn today. Will check electrolytes and serum phosphorus level for tomorrow. Medication list reviewed. Continue per consultants. January 14: Phosphorus supplement as his phosphorus level is critically low. Medication list reviewed. Consultants notes reviewed. Continue per current management. Continue to monitor chemistry panel and hemoglobin and hematocrit. Stable from renal standpoint of view. Previously: Potassium supplement Monitor renal parameters electrolytes UTI treatment Anemia work-up Per consultants Subjective ROS Limited/Unobtainable: No Objective Objective Last 24 Hour Vital Signs Date Time Temp Pulse Resp B/P (MAP) Pulse Ox O2 Delivery O2 Flow Rate FiO2 01/16/21 11:37 99.7 70 18 102/53 (69) 97 01/16/21 08:50 Room Air 01/16/21 08:00 99.4 74 18 107/54 (71) 98 01/16/21 04:00 98.7 76 20 120/65 (83) 95 01/15/21 23:56 98.3 55 20 113/67 (82) 96 01/15/21 21:00 Room Air 01/15/21 20:00 98.2 58 20 118/78 (91) 98 01/15/21 16:30 98.0 01/15/21 16:00 98.1 61 18 119/71 (87) 99 01/15/21 13:38 98.0 Intake and Output 01/15/21 01/16/21 19:00 07:00 Intake Total 720 ml 855 ml Balance 720 ml 855 ml Intake Oral 720 ml IV Total 855 ml # Voids 1 Current Medications Medications (Trade) Dose Ordered Sig/Jacquelin Route PRN Reason Start Time Stop Time Status Last Admin Dose Admin Ceftriaxone Sodium 1 gm/ Dextrose 55 ml @ 110 mls/hr Q24H IVPB 01/14/21 02:00 01/21/21 01:59 01/16/21 01:21 Dextrose/Sodium Chloride 1,000 ml @ 100 mls/hr Q10H IV 01/15/21 20:15 02/14/21 20:14 01/16/21 04:57 Docusate Sodium (Colace) 100 mg THREE TIMES A DAY ORAL 01/13/21 13:00 02/12/21 12:59 01/15/21 18:11 Folic Acid (Folate) 1 mg DAILY ORAL 01/13/21 13:00 02/12/21 12:59 01/15/21 09:11 Hydromorphone HCl (Dilaudid) 0.5 mg Q3H PRN IVP For Pain 4-6 01/15/21 16:45 01/22/21 16:44 01/16/21 04:52 Hydromorphone HCl (Dilaudid) 1 mg Q3H PRN IVP Pain 7-10 01/15/21 15:30 01/22/21 15:29 01/15/21 16:00 Iron Sucrose 100 mg/Sodium Chloride 60 ml @ 240 mls/hr BEDTIME IVPB 01/13/21 21:00 01/18/21 20:59 01/14/21 20:37 Medroxyprogesterone Acetate (Provera) 10 mg BID ORAL 01/13/21 18:00 04/13/21 17:59 01/15/21 18:11 Metoclopramide HCl (Reglan) 5 mg Q6H PRN IVP Nausea & Vomiting 2nd choice 01/15/21 21:15 02/14/21 20:14 Ondansetron HCl (Zofran) 4 mg Q4H PRN IVP Nausea & Vomiting 01/15/21 16:45 02/14/21 16:44 01/16/21 04:52 Pantoprazole (Protonix) 40 mg EVERY 12 HOURS ORAL 01/13/21 09:45 02/12/21 09:44 01/15/21 20:52 Phosphorus (Phospha 250 Neutral) 250 mg THREE TIMES A DAY ORAL 01/14/21 13:00 02/13/21 12:59 01/15/21 18:11 Potassium Chloride (K-Dur) 40 meq DAILY ORAL 01/13/21 13:00 04/13/21 12:59 01/15/21 09:11 Laboratory Tests 01/16/21 05:20: White Blood Count 6.8, Red Blood Count 3.71L, Hemoglobin 8.1L, Hematocrit 27.5L, Mean Corpuscular Volume 74L, Mean Corpuscular Hemoglobin 21.7L, Mean Corpuscular Hemoglobin Concent 29.3L, Red Cell Distribution Width 36.1H, Platelet Count 258, Mean Platelet Volume 9.7, Neutrophils (%) (Auto) 70.8, Lymphocytes (%) (Auto) 19.2L, Monocytes (%) (Auto) 7.1, Eosinophils (%) (Auto) 2.3, Basophils (%) (Auto) 0.6, Prothrombin Time 11.1, Prothromb Time International Ratio 1.0, Activated Partial Thromboplast Time 29, Sodium Level 142, Potassium Level 3.5, Chloride Level 110H, Carbon Dioxide Level 21, Anion Gap 11, Blood Urea Nitrogen 11, Creatinine 1.7H, Estimat Glomerular Filtration Rate 38.8, Glucose Level 109H , Calcium Level 8.1L, Phosphorus Level 4.0, Magnesium Level 2.2, Total Bilirubin 2.5H, Direct Bilirubin 1.0H, Gamma Glutamyl Transpeptidase 23, Aspartate Amino Transf (AST/SGOT) 47H, Alanine Aminotransferase (ALT/SGPT) 25, Alkaline Phosphatase 55, C-Reactive Protein, Quantitative 19.5H, Total Protein 6.3L, Albumin 2.7L, Globulin 3.6, Albumin/Globulin Ratio 0.8L, Hepatitis A IgM Ant ibody [Pending], Hepatitis B Surface Antigen [Pending], Hepatitis B Core IgM Antibody [Pending], Hepatitis C Antibody [Pending] Height (Feet): 5 Height (Inches): 4.00 Weight (Pounds): 169 General Appearance: no apparent distress Cardiovascular: normal rate Respiratory/Chest: decreased breath sounds Abdomen: soft Objective No change Jaylon Gardner MD Jan 16, 2021 12:49
[2021-01-16] MEDS: medroxyPROGESTERone 10mg tab ORAL SCH ×2 (13:16→17:21)
--- NOTE | 2021-01-16 13:51 | Diagnostic Imaging Report ---
EXAM: ULTRASOUND US ABD limited CLINICAL HISTORY: Abdominal pain. COMPARISON: None TECHNIQUE: Ultrasound examination of the right upper quadrant includes grayscale images, and color and spectral doppler analysis. FINDINGS: Targeted examination of the right lower quadrant performed. Gallbladder appears sludge-filled. Patient is NPO. No focal tenderness demonstrated. Common bile duct measures 4 mm. The pancreas is unremarkable to the extent visualized. Pancreas and right kidney grossly unremarkable to the extent visualized. IMPRESSION: SLUDGE-FILLED GALLBLADDER. NO FOCAL TENDERNESS PRESENTLY.
[2021-01-16 16:00] VITALS: BP 107/67
--- NOTE | 2021-01-16 16:32 | Diagnostic Imaging Report ---
EXAM: NM Hepatobiliary w/ delays TECHNIQUE: A HIDA scan is performed using 6 mCi of technetium 99 Choletec. Images are obtained dynamically for 60 minutes. CLINICAL HISTORY: Abdominal pain.. COMPARISON: CT abdomen and pelvis 01/14/2021 FINDINGS: There is appropriate homogeneous uptake of tracer in the liver. Early activity excreted into the biliary system is noted at 15 minute. Accumulation of activity into the gallbladder is noted at 18 minute. Activity in the small bowel is noted at 30 minutes. IMPRESSION: Unremarkable study. No sign of cystic duct obstruction.
[2021-01-16 20:00] VITALS: BP_SYST 100; BP_SYST 143; BP_DIAS 60; BP_DIAS 81
[2021-01-16] MEDS: Iron Sucrose 100 MG in NS 55 ML IVPB SCH (21:22)
--- NOTE | 2021-01-16 22:36 | General Progress Note ---
Subjective ROS Limited/Unobtainable: Yes Allergies: Coded Allergies: PENICILLINS (Verified Allergy, Severe, Rash, 10/03/17) SULFA (SULFONAMIDE ANTIBIOTICS) (Verified Allergy, Severe, Rash, 10/03/17) Objective Last 24 Hour Vital Signs Date Time Temp Pulse Resp B/P (MAP) Pulse Ox O2 Delivery O2 Flow Rate FiO2 01/16/21 21:00 Room Air 01/16/21 20:00 98.9 81 17 100/60 (73) 97 01/16/21 16:00 98.9 68 18 107/67 (80) 98 01/16/21 11:37 99.7 70 18 102/53 (69) 97 01/16/21 08:50 Room Air 01/16/21 08:00 99.4 74 18 107/54 (71) 98 01/16/21 04:00 98.7 76 20 120/65 (83) 95 01/15/21 23:56 98.3 55 20 113/67 (82) 96 Intake and Output 01/15/21 01/16/21 19:00 07:00 Intake Total 720 ml 855 ml Balance 720 ml 855 ml Intake Oral 720 ml IV Total 855 ml # Voids 1 Laboratory Tests 01/16/21 05:20: White Blood Count 6.8, Red Blood Count 3.71L, Hemoglobin 8.1L, Hematocrit 27.5L, Mean Corpuscular Volume 74L, Mean Corpuscular Hemoglobin 21.7L, Mean Corpuscular Hemoglobin Concent 29.3L, Red Cell Distribution Width 36.1H, Platelet Count 258, Mean Platelet Volume 9.7, Neutrophils (%) (Auto) 70.8, Lymphocytes (%) (Auto) 19.2L, Monocytes (%) (Auto) 7.1, Eosinophils (%) (Auto) 2.3, Basophils (%) (Auto) 0.6, Prothrombin Time 11.1, Prothromb Time International Ratio 1.0, Activated Partial Thromboplast Time 29, Sodium Level 142, Potassium Level 3.5, Chloride Level 110H, Carbon Dioxide Level 21, Anion Gap 11, Blood Urea Nitrogen 11, Creatinine 1.7H, Estimat Glomerular Filtration Rate 38.8, Glucose Level 109H , Calcium Level 8.1L, Phosphorus Level 4.0, Magnesium Level 2.2, Total Bilirubin 2.5H, Direct Bilirubin 1.0H, Gamma Glutamyl Transpeptidase 23, Aspartate Amino Transf (AST/SGOT) 47H, Alanine Aminotransferase (ALT/SGPT) 25, Alkaline Phosphatase 55, C-Reactive Protein, Quantitative 19.5H, Total Protein 6.3L, Albumin 2.7L, Globulin 3.6, Albumin/Globulin Ratio 0.8L, Hepatitis A IgM Antibody [Pending], Hepatitis B Surface Antigen [Pending], Hepatitis B Core IgM Antibody [Pending], Hepatitis C Antibody [Pending] Height (Feet): 5 Height (Inches): 4.00 Weight (Pounds): 169 Assessment/Plan Problem List: (1) Hypokalemia ICD Codes: E87.6 - Hypokalemia SNOMED: 33027798 (2) Fibroids ICD Codes: D25.9 - Leiomyoma of uterus, unspecified SNOMED: 51864632 (3) Anemia ICD Codes: D64.9 - Anemia, unspecified SNOMED: 351323854 (4) Electrolyte imbalance ICD Codes: E87.8 - Other disorders of electrolyte and fluid balance, not elsewhere classified SNOMED: 182773320 (5) DUB (dysfunctional uterine bleeding) ICD Codes: N93.8 - Other specified abnormal uterine and vaginal bleeding SNOMED: 61610187 (6) UTI (urinary tract infection) ICD Codes: N39.0 - Urinary tract infection, site not specified SNOMED: 15426296 Status: progressing Assessment/Plan: cholycystectomy per dr flores elevate lft afebrile lyte abnormality anemia is improving s/p transfusion vaginal bleeding check h/h Jose Garcia MD Jan 16, 2021 22:36
--- NOTE | 2021-01-16 22:59 | General Progress Note ---
Subjective Allergies: Coded Allergies: PENICILLINS (Verified Allergy, Severe, Rash, 10/03/17) SULFA (SULFONAMIDE ANTIBIOTICS) (Verified Allergy, Severe, Rash, 10/03/17) Subjective Seen early am getting narcotics for pain N/V after narcotics Objective Last 24 Hour Vital Signs Date Time Temp Pulse Resp B/P (MAP) Pulse Ox O2 Delivery O2 Flow Rate FiO2 01/16/21 21:00 Room Air 01/16/21 20:00 98.9 81 17 100/60 (73) 97 01/16/21 16:00 98.9 68 18 107/67 (80) 98 01/16/21 11:37 99.7 70 18 102/53 (69) 97 01/16/21 08:50 Room Air 01/16/21 08:00 99.4 74 18 107/54 (71) 98 01/16/21 04:00 98.7 76 20 120/65 (83) 95 01/15/21 23:56 98.3 55 20 113/67 (82) 96 Intake and Output 01/15/21 01/16/21 19:00 07:00 Intake Total 720 ml 855 ml Balance 720 ml 855 ml Intake Oral 720 ml IV Total 855 ml # Voids 1 Laboratory Tests 01/16/21 05:20: White Blood Count 6.8, Red Blood Count 3.71L, Hemoglobin 8.1L, Hematocrit 27.5L, Mean Corpuscular Volume 74L, Mean Corpuscular Hemoglobin 21.7L, Mean Corpuscular Hemoglobin Concent 29.3L, Red Cell Distribution Width 36.1H, Platelet Count 258, Mean Platelet Volume 9.7, Neutrophils (%) (Auto) 70.8, Lymphocytes (%) (Auto) 19.2L, Monocytes (%) (Auto) 7.1, Eosinophils (%) (Auto) 2.3, Basophils (%) (Auto) 0.6, Prothrombin Time 11.1, Prothromb Time International Ratio 1.0, Activated Partial Thromboplast Time 29, Sodium Level 142, Potassium Level 3.5, Chloride Level 110H, Carbon Dioxide Level 21, Anion Gap 11, Blood Urea Nitrogen 11, Creatinine 1.7H, Estimat Glomerular Filtration Rate 38.8, Glucose Level 109H , Calcium Level 8.1L, Phosphorus Level 4.0, Magnesium Level 2.2, Total Bilirubin 2.5H, Direct Bilirubin 1.0H, Gamma Glutamyl Transpeptidase 23, Aspartate Amino Transf (AST/SGOT) 47H, Alanine Aminotransferase (ALT/SGPT) 25, Alkaline Phosphatase 55, C-Reactive Protein, Quantitative 19.5H, Total Protein 6.3L, Albumin 2.7L, Globulin 3.6, Albumin/Globulin Ratio 0.8L, Hepatitis A IgM Antibody [Pending], Hepatitis B Surface Antigen [Pending], Hepatitis B Core IgM Antibody [Pending], Hepatitis C Antibody [Pending] Height (Feet): 5 Height (Inches): 4.00 Weight (Pounds): 169 Objective NCAT supple CTA RR abd soft, (+) RUQ TTP no edema Assessment/Plan Status: progressing Assessment/Plan: Assessment - RUQ pain and TTP - N/V - Elevated bili - R/o cholecystitis ---> negative HIDA and US - (+) gallbladder sludge - Anemia, presumed due to [employer] loss, OB (-) - fibroids Recommendations - po as tolerated - IVF - abx per ID - follow labs and exam - Surgical f/u - follow LFT - will consider EGD Eligio Ribera MD Jan 16, 2021 22:59
[2021-01-17] VITALS: BP 104/58
[2021-01-17] MEDS: cefTRIAXone 1 GM in D5W 55 ML IVPB SCH (01:17)
[2021-01-17] MEDS: D5 1/2NS 1,000 ML IV SCH ×3 (01:23→21:13)
[2021-01-17 04:00] VITALS: BP 125/69
[2021-01-17 06:16] LABS: HEMATOCRIT 26.5 % (37.0-47.0); HEMOGLOBIN 7.7 G/DL (12.0-16.0); MEAN CORPUSCULAR VOLUME 75 FL (80-99); PLATELET COUNT 259 K/UL (150-450); RED BLOOD COUNT 3.52 M/UL (4.20-5.40); RED CELL DISTRIBUTION WIDTH 36.2 % (11.6-14.8); WHITE BLOOD COUNT 6.4 K/UL (4.8-10.8)
[2021-01-17 06:55] LABS: ALBUMIN 2.5 G/DL (3.4-5.0); ALBUMIN/GLOBULIN RATIO 0.7 (1.0-2.7); BILIRUBIN,TOTAL 1.3 MG/DL (0.2-1.0); CALCIUM 8.2 MG/DL (8.5-10.1); CREATININE 1.6 MG/DL (0.55-1.30); POTASSIUM 3.9 MMOL/L (3.5-5.1)
[2021-01-17 06:58] LABS: BILIRUBIN,DIRECT 0.6 MG/DL (0.0-0.3)
[2021-01-17 08:00] VITALS: BP 99/62
[2021-01-17] MEDS: Docusate 100mg cap ORAL SCH ×3 (08:09→17:09)
[2021-01-17] MEDS: medroxyPROGESTERone 10mg tab ORAL SCH ×2 (08:09→17:09)
--- NOTE | 2021-01-17 11:35 | Surgery Progress Note ---
Surgery Progress Note Subjective Additional Comments hida negative us noted pain improved tolerating diet improving labs improved Objective Last 24 Hour Vital Signs Date Time Temp Pulse Resp B/P (MAP) Pulse Ox O2 Delivery O2 Flow Rate FiO2 01/17/21 08:20 Room Air 01/17/21 08:00 97.9 85 16 99/62 (74) 98 01/17/21 04:00 98.5 80 20 125/69 (87) 97 01/17/21 00:00 98.7 77 17 104/58 (73) 97 01/16/21 21:00 Room Air 01/16/21 20:00 98.9 81 17 100/60 (73) 97 01/16/21 16:00 98.9 68 18 107/67 (80) 98 01/16/21 11:37 99.7 70 18 102/53 (69) 97 I&O Intake and Output 01/16/21 01/17/21 19:00 07:00 Intake Total 950 ml 1015 ml Balance 950 ml 1015 ml Intake Oral 250 ml IV Total 700 ml 1015 ml # Voids 2 2 Cardiovascular: RSR Respiratory: clear Abdomen: soft, flat, non-tender, present bowel sounds, non-distended Extremities: no edema, no tenderness, no cyanosis Laboratory Tests Test 01/17/21 05:25 White Blood Count 6.4 K/UL (4.8-10.8) Red Blood Count 3.52 M/UL (4.20-5.40) L Hemoglobin 7.7 G/DL (12.0-16.0) L Hematocrit 26.5 % (37.0-47.0) L Mean Corpuscular Volume 75 FL (80-99) L Mean Corpuscular Hemoglobin 21.9 PG (27.0-31.0) L Mean Corpuscular Hemoglobin Concent 29.1 G/DL (32.0-36.0) L Red Cell Distribution Width 36.2 % (11.6-14.8) H Platelet Count 259 K/UL (150-450) Mean Platelet Volume 10.7 FL (6.5-10.1) H Neutrophils (%) (Auto) % (45.0-75.0) Lymphocytes (%) (Auto) % (20.0-45.0) Monocytes (%) (Auto) % (1.0-10.0) Eosinophils (%) (Auto) % (0.0-3.0) Basophils (%) (Auto) % (0.0-2.0) Differential Total Cells Counted 100 Neutrophils % (Manual) 70 % (45-75) Lymphocytes % (Manual) 22 % (20-45) Monocytes % (Manual) 6 % (1-10) Eosinophils % (Manual) 2 % (0-3) Basophils % (Manual) 0 % (0-2) Band Neutrophils 0 % (0-8) Platelet Estimate Adequate Platelet Morphology Normal Polychromasia 1+ Hypochromasia 2+ Poikilocytosis 1+ Anisocytosis 3+ Microcytosis 1+ Ovalocytes Occasional Erythrocyte Sedimentation Rate 95 MM/HR (0-20) H Prothrombin Time 11.2 SEC (9.30-11.50) Prothromb Time International Ratio 1.0 (0.9-1.1) Activated Partial Thromboplast Time 35 SEC (23-33) H Sodium Level 141 MMOL/L (136-145) Potassium Level 3.9 MMOL/L (3.5-5.1) Chloride Level 109 MMOL/L (98-107) H Carbon Dioxide Level 21 MMOL/L (21-32) Anion Gap 11 mmol/L (5-15) Blood Urea Nitrogen 7 mg/dL (7-18) Creatinine 1.6 MG/DL (0.55-1.30) H Estimat Glomerular Filtration Rate 41.6 mL/min (>60) Glucose Level 103 MG/DL (74-106) Lactic Acid Level 0.90 mmol/L (0.4-2.0) Calcium Level 8.2 MG/DL (8.5-10.1) L Total Bilirubin 1.3 MG/DL (0.2-1.0) H Direct Bilirubin 0.6 MG/DL (0.0-0.3) H Aspartate Amino Transf (AST/SGOT) 33 U/L (15-37) Alanine Aminotransferase (ALT/SGPT) 23 U/L (12-78) Alkaline Phosphatase 60 U/L (46-116) C-Reactive Protein, Quantitative 14.3 mg/dL (0.00-0.90) H Total Protein 6.3 G/DL (6.4-8.2) L Albumin 2.5 G/DL (3.4-5.0) L Globulin 3.8 g/dL Albumin/Globulin Ratio 0.7 (1.0-2.7) L Amylase Level 63 U/L (25-115) Lipase 216 U/L (73-393) Plan Problems: (1) Hypokalemia (2) Anemia (3) Electrolyte imbalance (4) DUB (dysfunctional uterine bleeding) (5) UTI (urinary tract infection) (6) Hypophosphatemia (7) Fibroids (8) Abdominal pain Assessment & Plan: 50-year-old female severe anemia from vaginal bleeding from uterine fibroids. Transfuse PRBC. Currently complaining of abdominal pain and tender in the epigastric right upper quadrant region. CT reviewed no significant findings other than stated in CT report. Labs noted T bili elevated direct normal likely from bleeding and heme related. LFTs okay. Potential for cholecystitis given the location of the pain in the examination. Ultrasound ordered and pending. HIDA ordered and pending. Will discuss with the patient and medical teams findings of imaging once available and considerations if necessary for surgery. Thank you for let me participate patient's care will follow with recommendations hida negative us okay okay for diet d/c planning (9) Bacterial conjunctivitis of both eyes Jefe Bond Jan 17, 2021 11:35
[2021-01-17 12:00] VITALS: BP 110/71
--- NOTE | 2021-01-17 12:36 | Infectious Diseases Prog Note ---
Assessment/Plan Assessment/Plan IMPRESSION: Hematuria and pyuria, likely UTI. Severe iron deficiency anemia secondary to blood loss. Uterine fibroids. Hypokalemia. History of retinoblastoma. Elevation of bilirubin,improving Elevation of creatinine. RECOMMENDATION: We will continue with ceftriaxone Negative abdominal US & HIDA scan Negative viral hepatitis serologies Subjective ROS Limited/Unobtainable: No Constitutional: Reports: no symptoms Respiratory: Reports: no symptoms Gastrointestinal/Abdominal: Reports: no symptoms Genitourinary: Reports: no symptoms Musculoskeletal: Reports: other - numbness in hands Allergies: Coded Allergies: PENICILLINS (Verified Allergy, Severe, Rash, 10/03/17) SULFA (SULFONAMIDE ANTIBIOTICS) (Verified Allergy, Severe, Rash, 10/03/17) Objective Last 24 Hour Vital Signs Date Time Temp Pulse Resp B/P (MAP) Pulse Ox O2 Delivery O2 Flow Rate FiO2 01/17/21 12:00 98.2 78 18 110/71 (84) 98 01/17/21 08:20 Room Air 01/17/21 08:00 97.9 85 16 99/62 (74) 98 01/17/21 04:00 98.5 80 20 125/69 (87) 97 01/17/21 00:00 98.7 77 17 104/58 (73) 97 01/16/21 21:00 Room Air 01/16/21 20:00 98.9 81 17 100/60 (73) 97 01/16/21 16:00 98.9 68 18 107/67 (80) 98 Height (Feet): 5 Height (Inches): 4.00 Weight (Pounds): 169 HEENT: mucous membranes moist Respiratory/Chest: lungs clear Cardiovascular: normal rate Abdomen: soft, non tender Extremities: no edema Neurologic/Psychiatric: alert, oriented x 3, responsive Laboratory Tests Test 01/17/21 05:25 White Blood Count 6.4 K/UL (4.8-10.8) Red Blood Count 3.52 M/UL (4.20-5.40) L Hemoglobin 7.7 G/DL (12.0-16.0) L Hematocrit 26.5 % (37.0-47.0) L Mean Corpuscular Volume 75 FL (80-99) L Mean Corpuscular Hemoglobin 21.9 PG (27.0-31.0) L Mean Corpuscular Hemoglobin Concent 29.1 G/DL (32.0-36.0) L Red Cell Distribution Width 36.2 % (11.6-14.8) H Platelet Count 259 K/UL (150-450) Mean Platelet Volume 10.7 FL (6.5-10.1) H Neutrophils (%) (Auto) % (45.0-75.0) Lymphocytes (%) (Auto) % (20.0-45.0) Monocytes (%) (Auto) % (1.0-10.0) Eosinophils (%) (Auto) % (0.0-3.0) Basophils (%) (Auto) % (0.0-2.0) Differential Total Cells Counted 100 Neutrophils % (Manual) 70 % (45-75) Lymphocytes % (Manual) 22 % (20-45) Monocytes % (Manual) 6 % (1-10) Eosinophils % (Manual) 2 % (0-3) Basophils % (Manual) 0 % (0-2) Band Neutrophils 0 % (0-8) Platelet Estimate Adequate Platelet Morphology Normal Polychromasia 1+ Hypochromasia 2+ Poikilocytosis 1+ Anisocytosis 3+ Microcytosis 1+ Ovalocytes Occasional Erythrocyte Sedimentation Rate 95 MM/HR (0-20) H Prothrombin Time 11.2 SEC (9.30-11.50) Prothromb Time International Ratio 1.0 (0.9-1.1) Activated Partial Thromboplast Time 35 SEC (23-33) H Sodium Level 141 MMOL/L (136-145) Potassium Level 3.9 MMOL/L (3.5-5.1) Chloride Level 109 MMOL/L (98-107) H Carbon Dioxide Level 21 MMOL/L (21-32) Anion Gap 11 mmol/L (5-15) Blood Urea Nitrogen 7 mg/dL (7-18) Creatinine 1.6 MG/DL (0.55-1.30) H Estimat Glomerular Filtration Rate 41.6 mL/min (>60) Glucose Level 103 MG/DL (74-106) Lactic Acid Level 0.90 mmol/L (0.4-2.0) Calcium Level 8.2 MG/DL (8.5-10.1) L Total Bilirubin 1.3 MG/DL (0.2-1.0) H Direct Bilirubin 0.6 MG/DL (0.0-0.3) H Aspartate Amino Transf (AST/SGOT) 33 U/L (15-37) Alanine Aminotransferase (ALT/SGPT) 23 U/L (12-78) Alkaline Phosphatase 60 U/L (46-116) C-Reactive Protein, Quantitative 14.3 mg/dL (0.00-0.90) H Total Protein 6.3 G/DL (6.4-8.2) L Albumin 2.5 G/DL (3.4-5.0) L Globulin 3.8 g/dL Albumin/Globulin Ratio 0.7 (1.0-2.7) L Amylase Level 63 U/L (25-115) Lipase 216 U/L (73-393) Current Medications Medications (Trade) Dose Ordered Sig/Jacquelin Route PRN Reason Start Time Stop Time Status Last Admin Dose Admin Ceftriaxone Sodium 1 gm/ Dextrose 55 ml @ 110 mls/hr Q24H IVPB 01/14/21 02:00 01/21/21 01:59 01/17/21 01:17 Dextrose/Sodium Chloride 1,000 ml @ 100 mls/hr Q10H IV 01/15/21 20:15 02/14/21 20:14 01/17/21 12:07 Docusate Sodium (Colace) 100 mg THREE TIMES A DAY ORAL 01/13/21 13:00 02/12/21 12:59 01/17/21 12:04 Folic Acid (Folate) 1 mg DAILY ORAL 01/13/21 13:00 02/12/21 12:59 01/17/21 08:09 Hydromorphone HCl (Dilaudid) 0.5 mg Q3H PRN IVP For Pain 4-6 01/15/21 16:45 01/22/21 16:44 01/16/21 21:22 Hydromorphone HCl (Dilaudid) 1 mg Q3H PRN IVP Pain 7-10 01/15/21 15:30 01/22/21 15:29 01/15/21 16:00 Iron Sucrose 100 mg/Sodium Chloride 60 ml @ 240 mls/hr BEDTIME IVPB 01/13/21 21:00 01/18/21 20:59 01/16/21 21:22 Medroxyprogesterone Acetate (Provera) 10 mg BID ORAL 01/13/21 18:00 04/13/21 17:59 01/17/21 08:09 Metoclopramide HCl (Reglan) 5 mg Q6H PRN IVP Nausea & Vomiting 2nd choice 01/15/21 21:15 02/14/21 20:14 Ondansetron HCl (Zofran) 4 mg Q4H PRN IVP Nausea & Vomiting 01/15/21 16:45 02/14/21 16:44 01/16/21 04:52 Pantoprazole (Protonix) 40 mg EVERY 12 HOURS ORAL 01/13/21 09:45 02/12/21 09:44 01/17/21 08:09 Potassium Chloride (K-Dur) 40 meq DAILY ORAL 01/13/21 13:00 04/13/21 12:59 01/17/21 08:09 Emory Bermeo MD Jan 17, 2021 12:36
--- NOTE | 2021-01-17 13:56 | Nephrology Progress Note ---
Assessment/Plan Problem List: (1) Electrolyte imbalance (2) Hypokalemia (3) Anemia (4) UTI (urinary tract infection) (5) DUB (dysfunctional uterine bleeding) (6) Hypophosphatemia Assessment Hypokalemia Severe anemia UTI History of uterine fibroid History of retinoblastoma Plan January 17: Labs reviewed. Medication list reviewed. Serum creatinine lower at 1.6. Stable from renal standpoint of view. January 16: Hemoglobin higher. Phosphorus level within normal limit. Electrolytes within normal limit. Continue slow hydration. Serum creatinine at 1.7. Continue slow hydration. January 15: CBC reviewed. Hemoglobin higher. No CHEM panel drawn today. Will check electrolytes and serum phosphorus level for tomorrow. Medication list reviewed. Continue per consultants. January 14: Phosphorus supplement as his phosphorus level is critically low. Medication list reviewed. Consultants notes reviewed. Continue per current management. Continue to monitor chemistry panel and hemoglobin and hematocrit. Stable from renal standpoint of view. Previously: Potassium supplement Monitor renal parameters electrolytes UTI treatment Anemia work-up Per consultants Subjective ROS Limited/Unobtainable: No Objective Objective Last 24 Hour Vital Signs Date Time Temp Pulse Resp B/P (MAP) Pulse Ox O2 Delivery O2 Flow Rate FiO2 01/17/21 12:00 98.2 78 18 110/71 (84) 98 01/17/21 08:20 Room Air 01/17/21 08:00 97.9 85 16 99/62 (74) 98 01/17/21 04:00 98.5 80 20 125/69 (87) 97 01/17/21 00:00 98.7 77 17 104/58 (73) 97 01/16/21 21:00 Room Air 01/16/21 20:00 98.9 81 17 100/60 (73) 97 01/16/21 16:00 98.9 68 18 107/67 (80) 98 Intake and Output 01/16/21 01/17/21 19:00 07:00 Intake Total 950 ml 1015 ml Balance 950 ml 1015 ml Intake Oral 250 ml IV Total 700 ml 1015 ml # Voids 2 2 Current Medications Medications (Trade) Dose Ordered Sig/Jacquelin Route PRN Reason Start Time Stop Time Status Last Admin Dose Admin Ceftriaxone Sodium 1 gm/ Dextrose 55 ml @ 110 mls/hr Q24H IVPB 01/14/21 02:00 01/21/21 01:59 01/17/21 01:17 Dextrose/Sodium Chloride 1,000 ml @ 100 mls/hr Q10H IV 01/15/21 20:15 02/14/21 20:14 01/17/21 12:07 Docusate Sodium (Colace) 100 mg THREE TIMES A DAY ORAL 01/13/21 13:00 02/12/21 12:59 01/17/21 12:04 Folic Acid (Folate) 1 mg DAILY ORAL 01/13/21 13:00 02/12/21 12:59 01/17/21 08:09 Hydromorphone HCl (Dilaudid) 0.5 mg Q3H PRN IVP For Pain 4-6 01/15/21 16:45 01/22/21 16:44 01/16/21 21:22 Hydromorphone HCl (Dilaudid) 1 mg Q3H PRN IVP Pain 7-10 01/15/21 15:30 01/22/21 15:29 01/15/21 16:00 Iron Sucrose 100 mg/Sodium Chloride 60 ml @ 240 mls/hr BEDTIME IVPB 01/13/21 21:00 01/18/21 20:59 01/16/21 21:22 Medroxyprogesterone Acetate (Provera) 10 mg BID ORAL 01/13/21 18:00 04/13/21 17:59 01/17/21 08:09 Metoclopramide HCl (Reglan) 5 mg Q6H PRN IVP Nausea & Vomiting 2nd choice 01/15/21 21:15 02/14/21 20:14 Ondansetron HCl (Zofran) 4 mg Q4H PRN IVP Nausea & Vomiting 01/15/21 16:45 02/14/21 16:44 01/16/21 04:52 Pantoprazole (Protonix) 40 mg EVERY 12 HOURS ORAL 01/13/21 09:45 02/12/21 09:44 01/17/21 08:09 Potassium Chloride (K-Dur) 40 meq DAILY ORAL 01/13/21 13:00 04/13/21 12:59 01/17/21 08:09 Laboratory Tests 01/17/21 05:25: White Blood Count 6.4, Red Blood Count 3.52L, Hemoglobin 7.7L, Hematocrit 26.5L, Mean Corpuscular Volume 75L, Mean Corpuscular Hemoglobin 21.9L, Mean Corpuscular Hemoglobin Concent 29.1L, Red Cell Distribution Width 36.2H, Platelet Count 259, Mean Platelet Volume 10.7H, Neutrophils (%) (Auto) , Lymphocytes (%) (Auto) , Monocytes (%) (Auto) , Eosinophils (%) (Auto) , Basophils (%) (Auto) , Differential Total Cells Counted 100, Neutrophils % (Manual) 70, Lymphocytes % (Manual) 22, Monocytes % (Manual) 6, Eosinophils % (Manual) 2, Basophils % (Manual) 0, Band Neutrophils 0, Platelet Estimate Adequate, Platelet Morphology Normal, Polychromasia 1+, Hypochromasia 2+, Poikilocytosis 1+, Anisocytosis 3+, Microcytosis 1+, Ovalocytes Occasional, Erythrocyte Sedimentation Rate 95H, Prothrombin Time 11.2, Prothromb Time International Ratio 1.0, Activated Partial Thromboplast Time 35H, Sodium Level 141, Potassium Level 3.9, Chloride Level 109H, Carbon Dioxide Level 21, Anion Gap 11, Blood Urea Nitrogen 7, Creatinine 1.6H, Estimat Glomerular Filtration Rate 41.6, Glucose Level 103, Lactic Acid Level 0.90, Calcium Level 8.2L, Total Bilirubin 1.3H, Direct Bilirubin 0.6H, Aspartate Amino Transf (AST/SGOT) 33, Alanine Aminotransferase (ALT/SGPT) 23, Alkaline Phosphatase 60, C-Reactive Protein, Quantitative 14.3H, Total Protein 6.3L, Albumin 2.5L, Globulin 3.8, Albumin/Globulin Ratio 0.7L, Amylase Level 63, Lipase 216 Height (Feet): 5 Height (Inches): 4.00 Weight (Pounds): 169 General Appearance: no apparent distress Cardiovascular: normal rate Respiratory/Chest: decreased breath sounds Abdomen: distended Objective No change Jaylon Gardner MD Jan 17, 2021 13:56
[2021-01-17 16:00] VITALS: BP 112/76
--- NOTE | 2021-01-17 17:26 | General Progress Note ---
Subjective Allergies: Coded Allergies: PENICILLINS (Verified Allergy, Severe, Rash, 10/03/17) SULFA (SULFONAMIDE ANTIBIOTICS) (Verified Allergy, Severe, Rash, 10/03/17) Subjective Feels better less pain tolerating PO HIDA and US negative Objective Last 24 Hour Vital Signs Date Time Temp Pulse Resp B/P (MAP) Pulse Ox O2 Delivery O2 Flow Rate FiO2 01/17/21 16:00 97.7 73 18 112/76 (88) 99 01/17/21 12:00 98.2 78 18 110/71 (84) 98 01/17/21 08:20 Room Air 01/17/21 08:00 97.9 85 16 99/62 (74) 98 01/17/21 04:00 98.5 80 20 125/69 (87) 97 01/17/21 00:00 98.7 77 17 104/58 (73) 97 01/16/21 21:00 Room Air 01/16/21 20:00 98.9 81 17 100/60 (73) 97 Intake and Output 01/16/21 01/17/21 19:00 07:00 Intake Total 950 ml 1015 ml Balance 950 ml 1015 ml Intake Oral 250 ml IV Total 700 ml 1015 ml # Voids 2 2 Laboratory Tests 01/17/21 05:25: White Blood Count 6.4, Red Blood Count 3.52L, Hemoglobin 7.7L, Hematocrit 26.5L, Mean Corpuscular Volume 75L, Mean Corpuscular Hemoglobin 21.9L, Mean Corpuscular Hemoglobin Concent 29.1L, Red Cell Distribution Width 36.2H, Platelet Count 259, Mean Platelet Volume 10.7H, Neutrophils (%) (Auto) , Lymphocytes (%) (Auto) , Monocytes (%) (Auto) , Eosinophils (%) (Auto) , Basophils (%) (Auto) , Differential Total Cells Counted 100, Neutrophils % (Manual) 70, Lymphocytes % (Manual) 22, Monocytes % (Manual) 6, Eosinophils % (Manual) 2, Basophils % (Manual) 0, Band Neutrophils 0, Platelet Estimate Adequate, Platelet Morphology Normal, Polychromasia 1+, Hypochromasia 2+, Poikilocytosis 1+, Anisocytosis 3+, Microcytosis 1+, Ovalocytes Occasional, Erythrocyte Sedimentation Rate 95H, Prothrombin Time 11.2, Prothromb Time International Ratio 1.0, Activated Partial Thromboplast Time 35H, Sodium Level 141, Potassium Level 3.9, Chloride Level 109H, Carbon Dioxide Level 21, Anion Gap 11, Blood Urea Nitrogen 7, Creatinine 1.6H, Estimat Glomerular Filtration Rate 41.6, Glucose Level 103, Lactic Acid Level 0.90, Calcium Level 8.2L, Total Bilirubin 1.3H, Direct Bilirubin 0.6H, Aspartate Amino Transf (AST/SGOT) 33, Alanine Aminotransferase (ALT/SGPT) 23, Alkaline Phosphatase 60, C-Reactive Protein, Quantitative 14.3H, Total Protein 6.3L, Albumin 2.5L, Globulin 3.8, Albumin/Globulin Ratio 0.7L, Amylase Level 63, Lipase 216 Height (Feet): 5 Height (Inches): 4.00 Weight (Pounds): 169 Objective NCAT supple CTA RR abd soft, minimal epigastric TTP no edema Assessment/Plan Status: progressing Assessment/Plan: Assessment - RUQ pain and TTP - improved, suspect passed stone/sludge - N/V - resolved - Elevated bili - improving, suspect passed stone/sluge - R/o cholecystitis ---> negative HIDA and US - (+) gallbladder sludge - 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
[2021-01-17 20:00] VITALS: BP 124/71
[2021-01-17] MEDS: Iron Sucrose 100 MG in NS 55 ML IVPB SCH (21:13)
--- NOTE | 2021-01-17 21:26 | General Progress Note ---
Subjective ROS Limited/Unobtainable: Yes Allergies: Coded Allergies: PENICILLINS (Verified Allergy, Severe, Rash, 10/03/17) SULFA (SULFONAMIDE ANTIBIOTICS) (Verified Allergy, Severe, Rash, 10/03/17) Objective Last 24 Hour Vital Signs Date Time Temp Pulse Resp B/P (MAP) Pulse Ox O2 Delivery O2 Flow Rate FiO2 01/17/21 20:00 98.7 92 18 124/71 (88) 98 01/17/21 16:00 97.7 73 18 112/76 (88) 99 01/17/21 12:00 98.2 78 18 110/71 (84) 98 01/17/21 08:20 Room Air 01/17/21 08:00 97.9 85 16 99/62 (74) 98 01/17/21 04:00 98.5 80 20 125/69 (87) 97 01/17/21 00:00 98.7 77 17 104/58 (73) 97 Intake and Output 01/16/21 01/17/21 19:00 07:00 Intake Total 950 ml 1015 ml Balance 950 ml 1015 ml Intake Oral 250 ml IV Total 700 ml 1015 ml # Voids 2 2 Laboratory Tests 01/17/21 05:25: White Blood Count 6.4, Red Blood Count 3.52L, Hemoglobin 7.7L, Hematocrit 26.5L, Mean Corpuscular Volume 75L, Mean Corpuscular Hemoglobin 21.9L, Mean Corpuscular Hemoglobin Concent 29.1L, Red Cell Distribution Width 36.2H, Platelet Count 259, Mean Platelet Volume 10.7H, Neutrophils (%) (Auto) , Lymphocytes (%) (Auto) , Monocytes (%) (Auto) , Eosinophils (%) (Auto) , Basophils (%) (Auto) , Differential Total Cells Counted 100, Neutrophils % (Manual) 70, Lymphocytes % (Manual) 22, Monocytes % (Manual) 6, Eosinophils % (Manual) 2, Basophils % (Manual) 0, Band Neutrophils 0, Platelet Estimate Adequate, Platelet Morphology Normal, Polychromasia 1+, Hypochromasia 2+, Poikilocytosis 1+, Anisocytosis 3+, Microcytosis 1+, Ovalocytes Occasional, Erythrocyte Sedimentation Rate 95H, Prothrombin Time 11.2, Prothromb Time International Ratio 1.0, Activated Partial Thromboplast Time 35H, Sodium Level 141, Potassium Level 3.9, Chloride Level 109H, Carbon Dioxide Level 21, Anion Gap 11, Blood Urea Nitrogen 7, Creatinine 1.6H, Estimat Glomerular Filtration Rate 41.6, Glucose Level 103, Lactic Acid Level 0.90, Calcium Level 8.2L, Total Bilirubin 1.3H, Direct Bilirubin 0.6H, Aspartate Amino Transf (AST/SGOT) 33, Alanine Aminotransferase (ALT/SGPT) 23, Alkaline Phosphatase 60, C-Reactive Protein, Quantitative 14.3H, Total Protein 6.3L, Albumin 2.5L, Globulin 3.8, Albumin/Globulin Ratio 0.7L, Amylase Level 63, Lipase 216 Height (Feet): 5 Height (Inches): 4.00 Weight (Pounds): 169 Assessment/Plan Problem List: (1) Hypokalemia ICD Codes: E87.6 - Hypokalemia SNOMED: 05095912 (2) Fibroids ICD Codes: D25.9 - Leiomyoma of uterus, unspecified SNOMED: 01686765 (3) Anemia ICD Codes: D64.9 - Anemia, unspecified SNOMED: 605692484 (4) Electrolyte imbalance ICD Codes: E87.8 - Other disorders of electrolyte and fluid balance, not elsewhere classified SNOMED: 991109545 (5) DUB (dysfunctional uterine bleeding) ICD Codes: N93.8 - Other specified abnormal uterine and vaginal bleeding SNOMED: 53521283 (6) UTI (urinary tract infection) ICD Codes: N39.0 - Urinary tract infection, site not specified SNOMED: 63513324 Status: progressing Assessment/Plan: cholycystectomy per dr flores elevate lft s/p transfusion vaginal bleeding under control check h/h in am afebriJose Hernadez MD Jan 17, 2021 21:26
[2021-01-18] VITALS: BP 119/67
[2021-01-18] MEDS: HYDROmorphone 1mg/ml Carpuject IVP PRN ×2 (00:29→20:02)
[2021-01-18] MEDS: cefTRIAXone 1 GM in D5W 55 ML IVPB SCH (01:10)
[2021-01-18 04:00] VITALS: BP 114/65
[2021-01-18 06:37] LABS: BASOPHILS % (AUTO) 0.3 % (0.0-2.0); EOSINOPHILS % (AUTO) 2.2 % (0.0-3.0); HEMOGLOBIN 8.2 G/DL (12.0-16.0); LYMPHOCYTES % (AUTO) 25.4 % (20.0-45.0); MEAN CORPUSCULAR VOLUME 77 FL (80-99); MONOCYTES % (AUTO) 9.3 % (1.0-10.0); NEUTROPHILS % (AUTO) 62.8 % (45.0-75.0); PLATELET COUNT 269 K/UL (150-450); RED BLOOD COUNT 3.65 M/UL (4.20-5.40); RED CELL DISTRIBUTION WIDTH 34.7 % (11.6-14.8); WHITE BLOOD COUNT 6.7 K/UL (4.8-10.8)
[2021-01-18 06:56] LABS: ALBUMIN 2.6 G/DL (3.4-5.0); ALBUMIN/GLOBULIN RATIO 0.7 (1.0-2.7); BILIRUBIN,TOTAL 0.7 MG/DL (0.2-1.0); CALCIUM 8.2 MG/DL (8.5-10.1); CREATININE 1.6 MG/DL (0.55-1.30); POTASSIUM 4.2 MMOL/L (3.5-5.1)
[2021-01-18 08:00] VITALS: BP 122/76
[2021-01-18] MEDS: Docusate 100mg cap ORAL SCH ×3 (08:50→17:24)
[2021-01-18] MEDS: medroxyPROGESTERone 10mg tab ORAL SCH ×2 (08:50→17:24)
[2021-01-18] MEDS: D5 1/2NS 1,000 ML IV SCH (08:51)
--- NOTE | 2021-01-18 09:41 | Hematology/Onc Progress Note ---
Assessment/Plan Assessment/Plan Assessment and Recs # Anemia of iron deficiency with a history of heavy menstruation with uterine fibroids --> to see lock and dam repairer while here -> in the past recommend at [facility], may still need procedure -> anemia panel reviewed --> started on iv iron --> occult was negative --> hgb 5.4-->5.6->7.6->8.2 --> on provera as per lock and dam repairer # Leukocytosis likely due to reactive process --> wbc 16-->9.7 --> continue on abx ctx --> smear has been reviewed # Abd pain RUQ --> pending hida scan # UTI (urinary tract infection) --> continue for abx ctx # Hypokalemia --> replete with k # Dvt ppx scds Appreciate consultation and dw Rn Subjective Constitutional: Denies: no symptoms, chills, fever, malaise, weakness, other HEENT: Denies: no symptoms, eye pain, blurred vision, tearing, double vision, ear pain, ear discharge, nose pain, nose congestion, throat pain, throat swelling, mouth pain, mouth swelling, other Cardiovascular: Denies: no symptoms, chest pain, edema, irregular heart rate, lightheadedness, palpitations, syncope, other Respiratory: Denies: no symptoms, cough, shortness of breath, SOB with exce rtion, SOB at rest, sputum, wheezing, other Genitourinary: Denies: no symptoms, burning, discharge, frequency, flank pain, hematuria, incontinence, pain, urgency, other Neurologic/Psychiatric: Denies: no symptoms, anxiety, depressed, emotional problems, headache, numbness, paresthesia, pre-existing deficit, seizure, tingling, tremors, weakness, other Hematologic/Lymphatic: Denies: no symptoms, anemia, easy bleeding, easy bruising, adenopathy, other Allergies: Coded Allergies: PENICILLINS (Verified Allergy, Severe, Rash, 10/03/17) SULFA (SULFONAMIDE ANTIBIOTICS) (Verified Allergy, Severe, Rash, 10/03/17) Subjective 01/14 meds reviewed, labs noted, no bleeding, no major events, hgb remains low 01/15 on provera bid therapy, as per lock and dam repairer, to f/u outpatient, cbc pending 01/16 on provera, hida scan pending, labs to be repeated today 01/18 labs are noted, no bleeding, hgb 8.2, no hemolysis, meds noted Objective Objective Current Medications Medications (Trade) Dose Ordered Sig/Jacquelin Route PRN Reason Start Time Stop Time Status Last Admin Dose Admin Ceftriaxone Sodium 1 gm/ Dextrose 55 ml @ 110 mls/hr Q24H IVPB 01/14/21 02:00 01/21/21 01:59 01/18/21 01:10 Dextrose/Sodium Chloride 1,000 ml @ 100 mls/hr Q10H IV 01/15/21 20:15 02/14/21 20:14 01/18/21 08:51 Docusate Sodium (Colace) 100 mg THREE TIMES A DAY ORAL 01/13/21 13:00 02/12/21 12:59 01/18/21 08:50 Folic Acid (Folate) 1 mg DAILY ORAL 01/13/21 13:00 02/12/21 12:59 01/18/21 08:51 Hydromorphone HCl (Dilaudid) 0.5 mg Q3H PRN IVP For Pain 4-6 01/15/21 16:45 01/22/21 16:44 01/18/21 00:29 Hydromorphone HCl (Dilaudid) 1 mg Q3H PRN IVP Pain 7-10 01/15/21 15:30 01/22/21 15:29 01/15/21 16:00 Iron Sucrose 100 mg/Sodium Chloride 60 ml @ 240 mls/hr BEDTIME IVPB 01/13/21 21:00 01/18/21 20:59 01/17/21 21:13 Medroxyprogesterone Acetate (Provera) 10 mg BID ORAL 01/13/21 18:00 04/13/21 17:59 01/18/21 08:50 Metoclopramide HCl (Reglan) 5 mg Q6H PRN IVP Nausea & Vomiting 2nd choice 01/15/21 21:15 02/14/21 20:14 Ondansetron HCl (Zofran) 4 mg Q4H PRN IVP Nausea & Vomiting 01/15/21 16:45 02/14/21 16:44 01/16/21 04:52 Pantoprazole (Protonix) 40 mg EVERY 12 HOURS ORAL 01/13/21 09:45 02/12/21 09:44 01/18/21 08:50 Potassium Chloride (K-Dur) 40 meq DAILY ORAL 01/13/21 13:00 04/13/21 12:59 01/18/21 08:50 Last 24 Hour Vital Signs Date Time Temp Pulse Resp B/P (MAP) Pulse Ox O2 Delivery O2 Flow Rate FiO2 01/18/21 09:00 Room Air 01/18/21 08:00 98.6 73 18 122/76 (91) 97 73 01/18/21 04:00 98.6 61 16 114/65 (81) 97 01/18/21 00:00 98.4 87 16 119/67 (84) 98 01/17/21 21:00 Room Air 01/17/21 20:00 98.7 92 18 124/71 (88) 98 01/17/21 16:00 97.7 73 18 112/76 (88) 99 01/17/21 12:00 98.2 78 18 110/71 (84) 98 01/17/21 08:20 Room Air 01/17/21 08:00 97.9 85 16 99/62 (74) 98 01/17/21 04:00 98.5 80 20 125/69 (87) 97 01/17/21 00:00 98.7 77 17 104/58 (73) 97 01/16/21 21:00 Room Air 01/16/21 20:00 98.9 81 17 100/60 (73) 97 01/16/21 16:00 98.9 68 18 107/67 (80) 98 01/16/21 11:37 99.7 70 18 102/53 (69) 97 Intake and Output 01/17/21 01/18/21 19:00 07:00 Intake Total 1650 ml 1795 ml Balance 1650 ml 1795 ml Intake Oral 550 ml 480 ml IV Total 1100 ml 1315 ml # Voids 2 3 Labs Test 01/16/21 05:20 01/17/21 05:25 01/18/21 05:45 White Blood Count 6.8 K/UL (4.8-10.8) 6.4 K/UL (4.8-10.8) 6.7 K/UL (4.8-10.8) Red Blood Count 3.71 M/UL (4.20-5.40) 3.52 M/UL (4.20-5.40) 3.65 M/UL (4.20-5.40) Hemoglobin 8.1 G/DL (12.0-16.0) 7.7 G/DL (12.0-16.0) 8.2 G/DL (12.0-16.0) Hematocrit 27.5 % (37.0-47.0) 26.5 % (37.0-47.0) 28.0 % (37.0-47.0) Mean Corpuscular Volume 74 FL (80-99) 75 FL (80-99) 77 FL (80-99) Mean Corpuscular Hemoglobin 21.7 PG (27.0-31.0) 21.9 PG (27.0-31.0) 22.4 PG (27.0-31.0) Mean Corpuscular Hemoglobin Concent 29.3 G/DL (32.0-36.0) 29.1 G/DL (32.0-36.0) 29.1 G/DL (32.0-36.0) Red Cell Distribution Width 36.1 % (11.6-14.8) 36.2 % (11.6-14.8) 34.7 % (11.6-14.8) Platelet Count 258 K/UL (150-450) 259 K/UL (150-450) 269 K/UL (150-450) Mean Platelet Volume 9.7 FL (6.5-10.1) 10.7 FL (6.5-10.1) 9.7 FL (6.5-10.1) Neutrophils (%) (Auto) 70.8 % (45.0-75.0) % (45.0-75.0) 62.8 % (45.0-75.0) Lymphocytes (%) (Auto) 19.2 % (20.0-45.0) % (20.0-45.0) 25.4 % (20.0-45.0) Monocytes (%) (Auto) 7.1 % (1.0-10.0) % (1.0-10.0) 9.3 % (1.0-10.0) Eosinophils (%) (Auto) 2.3 % (0.0-3.0) % (0.0-3.0) 2.2 % (0.0-3.0) Basophils (%) (Auto) 0.6 % (0.0-2.0) % (0.0-2.0) 0.3 % (0.0-2.0) Prothrombin Time 11.1 SEC (9.30-11.50) 11.2 SEC (9.30-11.50) Prothromb Time International Ratio 1.0 (0.9-1.1) 1.0 (0.9-1.1) Activated Partial Thromboplast Time 29 SEC (23-33) 35 SEC (23-33) Sodium Level 142 MMOL/L (136-145) 141 MMOL/L (136-145) 142 MMOL/L (136-145) Potassium Level 3.5 MMOL/L (3.5-5.1) 3.9 MMOL/L (3.5-5.1) 4.2 MMOL/L (3.5-5.1) Chloride Level 110 MMOL/L (98-107) 109 MMOL/L (98-107) 110 MMOL/L (98-107) Carbon Dioxide Level 21 MMOL/L (21-32) 21 MMOL/L (21-32) 21 MMOL/L (21-32) Anion Gap 11 mmol/L (5-15) 11 mmol/L (5-15) 11 mmol/L (5-15) Blood Urea Nitrogen 11 mg/dL (7-18) 7 mg/dL (7-18) 6 mg/dL (7-18) Creatinine 1.7 MG/DL (0.55-1.30) 1.6 MG/DL (0.55-1.30) 1.6 MG/DL (0.55-1.30) Estimat Glomerular Filtration Rate 38.8 mL/min (>60) 41.6 mL/min (>60) 41.6 mL/min (>60) Glucose Level 109 MG/DL (74-106) 103 MG/DL (74-106) 97 MG/DL (74-106) Calcium Level 8.1 MG/DL (8.5-10.1) 8.2 MG/DL (8.5-10.1) 8.2 MG/DL (8.5-10.1) Phosphorus Level 4.0 MG/DL (2.5-4.9) 3.0 MG/DL (2.5-4.9) Magnesium Level 2.2 MG/DL (1.8-2.4) 2.1 MG/DL (1.8-2.4) Total Bilirubin 2.5 MG/DL (0.2-1.0) 1.3 MG/DL (0.2-1.0) 0.7 MG/DL (0.2-1.0) Direct Bilirubin 1.0 MG/DL (0.0-0.3) 0.6 MG/DL (0.0-0.3) Gamma Glutamyl Transpeptidase 23 U/L (5-85) 34 U/L (5-85) Aspartate Amino Transf (AST/SGOT) 47 U/L (15-37) 33 U/L (15-37) 27 U/L (15-37) Alanine Aminotransferase (ALT/SGPT) 25 U/L (12-78) 23 U/L (12-78) 23 U/L (12-78) Alkaline Phosphatase 55 U/L (46-116) 60 U/L (46-116) 60 U/L (46-116) C-Reactive Protein, Quantitative 19.5 mg/dL (0.00-0.90) 14.3 mg/dL (0.00-0.90) 10.1 mg/dL (0.00-0.90) Total Protein 6.3 G/DL (6.4-8.2) 6.3 G/DL (6.4-8.2) 6.4 G/DL (6.4-8.2) Albumin 2.7 G/DL (3.4-5.0) 2.5 G/DL (3.4-5.0) 2.6 G/DL (3.4-5.0) Globulin 3.6 g/dL 3.8 g/dL 3.8 g/dL Albumin/Globulin Ratio 0.8 (1.0-2.7) 0.7 (1.0-2.7) 0.7 (1.0-2.7) Hepatitis A IgM Antibody Negative (Negative) Hepatitis B Surface Antigen Negative (Negative) Hepatitis B Core IgM Antibody Negative (Negative) Hepatitis C Antibody <0.1 s/co ratio Differential Total Cells Counted 100 Neutrophils % (Manual) 70 % (45-75) Lymphocytes % (Manual) 22 % (20-45) Monocytes % (Manual) 6 % (1-10) Eosinophils % (Manual) 2 % (0-3) Basophils % (Manual) 0 % (0-2) Band Neutrophils 0 % (0-8) Platelet Estimate Adequate Platelet Morphology Normal Polychromasia 1+ Hypochromasia 2+ Poikilocytosis 1+ Anisocytosis 3+ Microcytosis 1+ Ovalocytes Occasional Erythrocyte Sedimentation Rate 95 MM/HR (0-20) Lactic Acid Level 0.90 mmol/L (0.4-2.0) Amylase Level 63 U/L (25-115) Lipase 216 U/L (73-393) Uric Acid 2.8 MG/DL (2.6-7.2) Height (Feet): 5 Height (Inches): 4.00 Weight (Pounds): 169 Objective General: Awake and alert, nad HEENT: NC/AT. EOMI. Cardiovascular: RRR. S1 and S2 normal. No murmur appreciated Resp: Normal work of breathing. No cough, wheezing or crackles appreciated Abdomen: Abdomen is soft, nondistended. Nontender Rectal: No external hemorrhoids, no palpable internal hemorrhoids. ++ Firm stool in vault. Skin: Intact. No abrasions, laceration or rash over the exposed skin MSK: Normal tone and bulk. Moving all extremities Neuro: Awake and alert. Mentating appropriately. Geoffrey Callaway MD Jan 18, 2021 09:41
--- NOTE | 2021-01-18 11:03 | Surgery Progress Note ---
Surgery Progress Note Subjective Symptoms: improved, tolerating diet, voiding well, passing flatus, BM, pain decreased Objective Last 24 Hour Vital Signs Date Time Temp Pulse Resp B/P (MAP) Pulse Ox O2 Delivery O2 Flow Rate FiO2 01/18/21 09:00 Room Air 01/18/21 08:00 98.6 73 18 122/76 (91) 97 73 01/18/21 04:00 98.6 61 16 114/65 (81) 97 01/18/21 00:00 98.4 87 16 119/67 (84) 98 01/17/21 21:00 Room Air 01/17/21 20:00 98.7 92 18 124/71 (88) 98 01/17/21 16:00 97.7 73 18 112/76 (88) 99 01/17/21 12:00 98.2 78 18 110/71 (84) 98 I&O Intake and Output 01/17/21 01/18/21 19:00 07:00 Intake Total 1650 ml 1795 ml Balance 1650 ml 1795 ml Intake Oral 550 ml 480 ml IV Total 1100 ml 1315 ml # Voids 2 3 Cardiovascular: RSR Respiratory: clear Abdomen: soft, flat, non-tender, present bowel sounds, non-distended Extremities: no edema, no tenderness, no cyanosis Laboratory Tests Test 01/18/21 05:45 White Blood Count 6.7 K/UL (4.8-10.8) Red Blood Count 3.65 M/UL (4.20-5.40) L Hemoglobin 8.2 G/DL (12.0-16.0) L Hematocrit 28.0 % (37.0-47.0) L Mean Corpuscular Volume 77 FL (80-99) L Mean Corpuscular Hemoglobin 22.4 PG (27.0-31.0) L Mean Corpuscular Hemoglobin Concent 29.1 G/DL (32.0-36.0) L Red Cell Distribution Width 34.7 % (11.6-14.8) H Platelet Count 269 K/UL (150-450) Mean Platelet Volume 9.7 FL (6.5-10.1) Neutrophils (%) (Auto) 62.8 % (45.0-75.0) Lymphocytes (%) (Auto) 25.4 % (20.0-45.0) Monocytes (%) (Auto) 9.3 % (1.0-10.0) Eosinophils (%) (Auto) 2.2 % (0.0-3.0) Basophils (%) (Auto) 0.3 % (0.0-2.0) Sodium Level 142 MMOL/L (136-145) Potassium Level 4.2 MMOL/L (3.5-5.1) Chloride Level 110 MMOL/L (98-107) H Carbon Dioxide Level 21 MMOL/L (21-32) Anion Gap 11 mmol/L (5-15) Blood Urea Nitrogen 6 mg/dL (7-18) L Creatinine 1.6 MG/DL (0.55-1.30) H Estimat Glomerular Filtration Rate 41.6 mL/min (>60) Glucose Level 97 MG/DL (74-106) Uric Acid 2.8 MG/DL (2.6-7.2) Calcium Level 8.2 MG/DL (8.5-10.1) L Phosphorus Level 3.0 MG/DL (2.5-4.9) Magnesium Level 2.1 MG/DL (1.8-2.4) Total Bilirubin 0.7 MG/DL (0.2-1.0) Gamma Glutamyl Transpeptidase 34 U/L (5-85) Aspartate Amino Transf (AST/SGOT) 27 U/L (15-37) Alanine Aminotransferase (ALT/SGPT) 23 U/L (12-78) Alkaline Phosphatase 60 U/L (46-116) C-Reactive Protein, Quantitative 10.1 mg/dL (0.00-0.90) H Total Protein 6.4 G/DL (6.4-8.2) Albumin 2.6 G/DL (3.4-5.0) L Globulin 3.8 g/dL Albumin/Globulin Ratio 0.7 (1.0-2.7) L Plan Problems: (1) Hypokalemia (2) Anemia (3) Electrolyte imbalance (4) DUB (dysfunctional uterine bleeding) (5) UTI (urinary tract infection) (6) Hypophosphatemia (7) Fibroids (8) Abdominal pain Assessment & Plan: 50-year-old female severe anemia from vaginal bleeding from uterine fibroids. Transfuse PRBC. Currently complaining of abdominal pain and tender in the epigastric right upper quadrant region. CT reviewed no significant findings other than stated in CT report. Labs noted T bili elevated direct normal likely from bleeding and heme related. LFTs okay. Potential for cholecystitis given the location of the pain in the examination. Ultrasound ordered and pending. HIDA ordered and pending. Will discuss with the patient and medical teams findings of imaging once available and considerations if necessary for surgery. Thank you for let me participate patient's care will follow with recommendations hida negative us okay okay for diet d/c planning lft's resolved RUQ pain resolved (9) Bacterial conjunctivitis of both eyes Jefe Bond Jan 18, 2021 11:03
--- NOTE | 2021-01-18 11:55 | Nephrology Progress Note ---
Assessment/Plan Problem List: (1) Electrolyte imbalance (2) Hypokalemia (3) Anemia (4) UTI (urinary tract infection) (5) DUB (dysfunctional uterine bleeding) (6) Hypophosphatemia Assessment Hypokalemia Severe anemia UTI History of uterine fibroid History of retinoblastoma Plan January 18: Labs reviewed. Medication list reviewed. IV fluids discontinued. Potassium supplement discontinued. Serum creatinine 1.6 stable. Hemoglobin is stable. Continue per consultants. January 17: Labs reviewed. Medication list reviewed. Serum creatinine lower at 1.6. Stable from renal standpoint of view. January 16: Hemoglobin higher. Phosphorus level within normal limit. Electrolytes within normal limit. Continue slow hydration. Serum creatinine at 1.7. Continue slow hydration. January 15: CBC reviewed. Hemoglobin higher. No CHEM panel drawn today. Will check electrolytes and serum phosphorus level for tomorrow. Medication list reviewed. Continue per consultants. January 14: Phosphorus supplement as his phosphorus level is critically low. Medication list reviewed. Consultants notes reviewed. Continue per current management. Continue to monitor chemistry panel and hemoglobin and hematocrit. Stable from renal standpoint of view. Previously: Potassium supplement Monitor renal parameters electrolytes UTI treatment Anemia work-up Per consultants Subjective ROS Limited/Unobtainable: No Constitutional: Reports: malaise Objective Objective Last 24 Hour Vital Signs Date Time Temp Pulse Resp B/P (MAP) Pulse Ox O2 Delivery O2 Flow Rate FiO2 01/18/21 09:00 Room Air 01/18/21 08:00 98.6 73 18 122/76 (91) 97 73 01/18/21 04:00 98.6 61 16 114/65 (81) 97 01/18/21 00:00 98.4 87 16 119/67 (84) 98 01/17/21 21:00 Room Air 01/17/21 20:00 98.7 92 18 124/71 (88) 98 01/17/21 16:00 97.7 73 18 112/76 (88) 99 01/17/21 12:00 98.2 78 18 110/71 (84) 98 Intake and Output 01/17/21 01/18/21 19:00 07:00 Intake Total 1650 ml 1795 ml Balance 1650 ml 1795 ml Intake Oral 550 ml 480 ml IV Total 1100 ml 1315 ml # Voids 2 3 Current Medications Medications (Trade) Dose Ordered Sig/Jacquelin Route PRN Reason Start Time Stop Time Status Last Admin Dose Admin Ceftriaxone Sodium 1 gm/ Dextrose 55 ml @ 110 mls/hr Q24H IVPB 01/14/21 02:00 01/21/21 01:59 01/18/21 01:10 Dextrose/Sodium Chloride 1,000 ml @ 100 mls/hr Q10H IV 01/15/21 20:15 02/14/21 20:14 01/18/21 08:51 Docusate Sodium (Colace) 100 mg THREE TIMES A DAY ORAL 01/13/21 13:00 02/12/21 12:59 01/18/21 08:50 Folic Acid (Folate) 1 mg DAILY ORAL 01/13/21 13:00 02/12/21 12:59 01/18/21 08:51 Hydromorphone HCl (Dilaudid) 0.5 mg Q3H PRN IVP For Pain 4-6 01/15/21 16:45 01/22/21 16:44 01/18/21 00:29 Hydromorphone HCl (Dilaudid) 1 mg Q3H PRN IVP Pain 7-10 01/15/21 15:30 01/22/21 15:29 01/15/21 16:00 Iron Sucrose 100 mg/Sodium Chloride 60 ml @ 240 mls/hr BEDTIME IVPB 01/13/21 21:00 01/18/21 20:59 01/17/21 21:13 Medroxyprogesterone Acetate (Provera) 10 mg BID ORAL 01/13/21 18:00 04/13/21 17:59 01/18/21 08:50 Metoclopramide HCl (Reglan) 5 mg Q6H PRN IVP Nausea & Vomiting 2nd choice 01/15/21 21:15 02/14/21 20:14 Ondansetron HCl (Zofran) 4 mg Q4H PRN IVP Nausea & Vomiting 01/15/21 16:45 02/14/21 16:44 01/16/21 04:52 Pantoprazole (Protonix) 40 mg EVERY 12 HOURS ORAL 01/13/21 09:45 02/12/21 09:44 01/18/21 08:50 Potassium Chloride (K-Dur) 40 meq DAILY ORAL 01/13/21 13:00 04/13/21 12:59 01/18/21 08:50 Laboratory Tests 01/18/21 05:45: White Blood Count 6.7, Red Blood Count 3.65L, Hemoglobin 8.2L, Hematocrit 28.0L, Mean Corpuscular Volume 77L, Mean Corpuscular Hemoglobin 22.4L, Mean Corpuscular Hemoglobin Concent 29.1L, Red Cell Distribution Width 34.7H, Platelet Count 269, Mean Platelet Volume 9.7, Neutrophils (%) (Auto) 62.8, Lymphocytes (%) (Auto) 25.4, Monocytes (%) (Auto) 9.3, Eosinophils (%) (Auto) 2.2, Basophils (%) (Auto) 0.3, Sodium Level 142, Potassium Level 4.2, Chloride Level 110H, Carbon Dioxide Level 21, Anion Gap 11, Blood Urea Nitrogen 6L, Creatinine 1.6H, Estimat Glomerular Filtration Rate 41.6, Glucose Level 97, Uric Acid 2.8, Calcium Level 8.2L, Phosphorus Level 3.0, Magnesium Level 2.1, Total Bilirubin 0.7, Gamma Glutamyl Transpeptidase 34, Aspartate Amino Transf (AST/SGOT) 27, Alanine Aminotransferase (ALT/SGPT) 23, Alkaline Phosphatase 60, C-Reactive Protein, Quantitative 10.1H, Total Protein 6.4, Albumin 2.6L, Globulin 3.8, Albumin/Globulin Ratio 0.7L Height (Feet): 5 Height (Inches): 4.00 Weight (Pounds): 169 General Appearance: no apparent distress Objective No change Jaylon Gardner MD Jan 18, 2021 11:55
[2021-01-18 12:00] VITALS: BP 116/73
--- NOTE | 2021-01-18 12:11 | Diagnostic Imaging Report ---
EXAM: US Duplex Bilateral Lower Extremities Veins CLINICAL HISTORY: TECHNIQUE: Real-time duplex ultrasound scan of the bilateral lower extremity veins integrating B-mode two-dimensional vascular structure, Doppler spectral analysis, color flow Doppler imaging and compression. COMPARISON: None FINDINGS: Right deep veins: Unremarkable. No DVT in the right common femoral, femoral, proximal deep femoral or popliteal veins. The veins demonstrate normal color flow, are normally compressible, with normal phasic flow and/or augmentation response. Right superficial veins: Unremarkable. No thrombus in the visualized right great saphenous vein. Left deep veins: Nonocclusive thrombus in the left peroneal vein. Patent left common femoral vein, superficial femoral vein, popliteal vein, and posterior tibial vein. Left superficial veins: Unremarkable. No thrombus in the visualized left great saphenous vein. Soft tissues: No acute findings. No popliteal cyst. IMPRESSION: Nonocclusive thrombus in the left peroneal vein. No deep venous thrombosis identified on the right.
--- NOTE | 2021-01-18 15:59 | General Progress Note ---
Subjective Allergies: Coded Allergies: PENICILLINS (Verified Allergy, Severe, Rash, 10/03/17) SULFA (SULFONAMIDE ANTIBIOTICS) (Verified Allergy, Severe, Rash, 10/03/17) Subjective Feels better less pain tolerating PO peroneal DVT per duplex noted Objective Last 24 Hour Vital Signs Date Time Temp Pulse Resp B/P (MAP) Pulse Ox O2 Delivery O2 Flow Rate FiO2 01/18/21 12:00 98.1 69 19 116/73 (87) 99 01/18/21 09:00 Room Air 01/18/21 08:00 98.6 73 18 122/76 (91) 97 73 01/18/21 04:00 98.6 61 16 114/65 (81) 97 01/18/21 00:00 98.4 87 16 119/67 (84) 98 01/17/21 21:00 Room Air 01/17/21 20:00 98.7 92 18 124/71 (88) 98 01/17/21 16:00 97.7 73 18 112/76 (88) 99 Intake and Output 01/17/21 01/18/21 19:00 07:00 Intake Total 1650 ml 1795 ml Balance 1650 ml 1795 ml Intake Oral 550 ml 480 ml IV Total 1100 ml 1315 ml # Voids 2 3 Laboratory Tests 01/18/21 05:45: White Blood Count 6.7, Red Blood Count 3.65L, Hemoglobin 8.2L, Hematocrit 28.0L, Mean Corpuscular Volume 77L, Mean Corpuscular Hemoglobin 22.4L, Mean Corpuscular Hemoglobin Concent 29.1L, Red Cell Distribution Width 34.7H, Platelet Count 269, Mean Platelet Volume 9.7, Neutrophils (%) (Auto) 62.8, Lymphocytes (%) (Auto) 25.4, Monocytes (%) (Auto) 9.3, Eosinophils (%) (Auto) 2.2, Basophils (%) (Auto) 0.3, Sodium Level 142, Potassium Level 4.2, Chloride Level 110H, Carbon Dioxide Level 21, Anion Gap 11, Blood Urea Nitrogen 6L, Creatinine 1.6H, Estimat Glomerular Filtration Rate 41.6, Glucose Level 97, Uric Acid 2.8, Calcium Level 8.2L, Phosphorus Level 3.0, Magnesium Level 2.1, Total Bilirubin 0.7, Gamma Glutamyl Transpeptidase 34, Aspartate Amino Transf (AST/SGOT) 27, Alanine Aminotransferase (ALT/SGPT) 23, Alkaline Phosphatase 60, C-Reactive Protein, Quantitative 10.1H, Total Protein 6.4, Albumin 2.6L, Globulin 3.8, Albumin/Globulin Ratio 0.7L Height (Feet): 5 Height (Inches): 4.00 Weight (Pounds): 169 Objective NCAT supple CTA RR abd soft, minimal epigastric TTP no edema Assessment/Plan Status: progressing Assessment/Plan: Assessment - RUQ pain and TTP - improved, suspect passed stone/sludge - N/V - resolved - Elevated bili - improving, suspect passed stone/sluge - R/o cholecystitis ---> negative HIDA and US - (+) gallbladder sludge - Anemia, presumed due to [employer] loss, OB (-) - fibroids Recommendations - po as tolerated - IVF - abx per ID - follow labs and exam - Surgical f/u - follow LFT Eligio Ribera MD Jan 18, 2021 15:59
[2021-01-18 16:00] VITALS: BP 102/63
[2021-01-18 20:00] VITALS: BP 105/66
[2021-01-18] MEDS: Iron Sucrose 100 MG in NS 55 ML IVPB SCH (20:02)
--- NOTE | 2021-01-18 21:37 | General Progress Note ---
Subjective ROS Limited/Unobtainable: Yes Allergies: Coded Allergies: PENICILLINS (Verified Allergy, Severe, Rash, 10/03/17) SULFA (SULFONAMIDE ANTIBIOTICS) (Verified Allergy, Severe, Rash, 10/03/17) Objective Last 24 Hour Vital Signs Date Time Temp Pulse Resp B/P (MAP) Pulse Ox O2 Delivery O2 Flow Rate FiO2 01/18/21 21:00 Room Air 01/18/21 20:00 98.8 81 20 105/66 (79) 99 01/18/21 16:00 98.7 73 20 102/63 (76) 98 01/18/21 12:00 98.1 69 19 116/73 (87) 99 01/18/21 09:00 Room Air 01/18/21 08:00 98.6 73 18 122/76 (91) 97 73 01/18/21 04:00 98.6 61 16 114/65 (81) 97 01/18/21 00:00 98.4 87 16 119/67 (84) 98 Intake and Output 01/17/21 01/18/21 19:00 07:00 Intake Total 1650 ml 1795 ml Balance 1650 ml 1795 ml Intake Oral 550 ml 480 ml IV Total 1100 ml 1315 ml # Voids 2 3 Laboratory Tests 01/18/21 05:45: White Blood Count 6.7, Red Blood Count 3.65L, Hemoglobin 8.2L, Hematocrit 28.0L, Mean Corpuscular Volume 77L, Mean Corpuscular Hemoglobin 22.4L, Mean Corpuscular Hemoglobin Concent 29.1L, Red Cell Distribution Width 34.7H, Platelet Count 269, Mean Platelet Volume 9.7, Neutrophils (%) (Auto) 62.8, Lymphocytes (%) (Auto) 25.4, Monocytes (%) (Auto) 9.3, Eosinophils (%) (Auto) 2.2, Basophils (%) (Auto) 0.3, Sodium Level 142, Potassium Level 4.2, Chloride Level 110H, Carbon Dioxide Level 21, Anion Gap 11, Blood Urea Nitrogen 6L, Creatinine 1.6H, Estimat Glomerular Filtration Rate 41.6, Glucose Level 97, Uric Acid 2.8, Calcium Level 8.2L, Phosphorus Level 3.0, Magnesium Level 2.1, Total Bilirubin 0.7, Gamma Glutamyl Transpeptidase 34, Aspartate Amino Transf (AST/SGOT) 27, Alanine Aminotransferase (ALT/SGPT) 23, Alkaline Phosphatase 60, C-Reactive Protein, Quantitative 10.1H, Total Protein 6.4, Albumin 2.6L, Globulin 3.8, Albumin/Globulin Ratio 0.7L Height (Feet): 5 Height (Inches): 4.00 Weight (Pounds): 169 Assessment/Plan Problem List: (1) Hypokalemia ICD Codes: E87.6 - Hypokalemia SNOMED: 72210643 (2) Fibroids ICD Codes: D25.9 - Leiomyoma of uterus, unspecified SNOMED: 21779213 (3) Anemia ICD Codes: D64.9 - Anemia, unspecified SNOMED: 039362641 (4) Electrolyte imbalance ICD Codes: E87.8 - Other disorders of electrolyte and fluid balance, not elsewhere classified SNOMED: 554527150 (5) DUB (dysfunctional uterine bleeding) ICD Codes: N93.8 - Other specified abnormal uterine and vaginal bleeding SNOMED: 87212094 (6) UTI (urinary tract infection) ICD Codes: N39.0 - Urinary tract infection, site not specified SNOMED: 02369444 Status: progressing Assessment/Plan: negative HIDA ?dvt treatment per dr william dysfunctional uterine bleeding afebrile anemia is improving Jose Garcia MD Jan 18, 2021 21:37
[2021-01-19] VITALS: BP 95/67
[2021-01-19] MEDS: cefTRIAXone 1 GM in D5W 55 ML IVPB SCH (02:05)
[2021-01-19 04:00] VITALS: BP 102/66
[2021-01-19 06:33] LABS: BASOPHILS % (AUTO) 0.6 % (0.0-2.0); EOSINOPHILS % (AUTO) 1.9 % (0.0-3.0); HEMATOCRIT 29.4 % (37.0-47.0); HEMOGLOBIN 8.2 G/DL (12.0-16.0); LYMPHOCYTES % (AUTO) 19.4 % (20.0-45.0); MEAN CORPUSCULAR VOLUME 77 FL (80-99); NEUTROPHILS % (AUTO) 68.1 % (45.0-75.0); PLATELET COUNT 255 K/UL (150-450); RED CELL DISTRIBUTION WIDTH 34.2 % (11.6-14.8); WHITE BLOOD COUNT 6.8 K/UL (4.8-10.8)
--- NOTE | 2021-01-19 06:41 | Hematology/Onc Progress Note ---
Assessment/Plan Assessment/Plan Assessment and Recs # Nonocclusive thrombus in the left peroneal vein-->THIS IS A DISTAL VEIN --> will stop provera as is hypercoagulable --> Do not recommend ivcfilter since is a small, distal isolated vein --> pain of bilateral legs unlikely from this blood clot --> to see obgyn toña for potential surgery --> continue iv iron # Anemia of iron deficiency with a history of heavy menstruation with uterine fibroids -> in the past recommend at [facility], may still need procedure -> anemia panel reviewed --> started on iv iron --> occult was negative --> hgb 5.4-->5.6->7.6->8.2 --> on provera as per log marker-->now dc # Leukocytosis likely due to reactive process --> wbc 16-->9.7 --> continue on abx ctx --> smear has been reviewed # Abd pain RUQ --> pending hida scan # UTI (urinary tract infection) --> continue for abx ctx # Hypokalemia --> replete with k # Dvt ppx scds Appreciate consultation and dw Rn Subjective HEENT: Denies: no symptoms, eye pain, blurred vision, tearing, double vision, ear pain, ear discharge, nose pain, nose congestion, throat pain, throat swelling, mouth pain, mouth swelling, other Cardiovascular: Denies: no symptoms, chest pain, edema, irregular heart rate, lightheadedness, palpitations, syncope, other Genitourinary: Denies: no symptoms, burning, discharge, frequency, flank pain, hematuria, incontinence, pain, urgency, other Neurologic/Psychiatric: Denies: no symptoms, anxiety, depressed, emotional problems, headache, numbness, paresthesia, pre-existing deficit, seizure, tingling, tremors, weakness, other Endocrine: Denies: no symptoms, excessive sweating, flushing, intolerance to cold, intolerance to heat, increased hunger, increased thirst, increased urine, unexplained weight gain, unexplained weight loss, other Hematologic/Lymphatic: Denies: no symptoms, anemia, easy bleeding, easy bruising, adenopathy, other Allergies: Coded Allergies: PENICILLINS (Verified Allergy, Severe, Rash, 10/03/17) SULFA (SULFONAMIDE ANTIBIOTICS) (Verified Allergy, Severe, Rash, 10/03/17) Subjective 01/14 meds reviewed, labs noted, no bleeding, no major events, hgb remains low 01/15 on provera bid therapy, as per log marker, to f/u outpatient, cbc pending 01/16 on provera, hida scan pending, labs to be repeated today 01/18 labs are noted, no bleeding, hgb 8.2, no hemolysis, meds noted 01/19 had a long discussion re seeing obgyn, stopping provera and nonocclusive clot Objective Objective Current Medications Medications (Trade) Dose Ordered Sig/Jacquelin Route PRN Reason Start Time Stop Time Status Last Admin Dose Admin Ceftriaxone Sodium 1 gm/ Dextrose 55 ml @ 110 mls/hr Q24H IVPB 01/14/21 02:00 01/21/21 01:59 01/19/21 02:05 Docusate Sodium (Colace) 100 mg THREE TIMES A DAY ORAL 01/13/21 13:00 02/12/21 12:59 01/18/21 17:24 Folic Acid (Folate) 1 mg DAILY ORAL 01/13/21 13:00 02/12/21 12:59 01/18/21 08:51 Hydromorphone HCl (Dilaudid) 0.5 mg Q3H PRN IVP For Pain 4-6 01/15/21 16:45 01/22/21 16:44 01/18/21 20:02 Hydromorphone HCl (Dilaudid) 1 mg Q3H PRN IVP Pain 7-10 01/15/21 15:30 01/22/21 15:29 01/15/21 16:00 Iron Sucrose 100 mg/Sodium Chloride 60 ml @ 240 mls/hr QHS IVPB 01/18/21 21:00 02/12/21 20:59 01/18/21 20:02 Medroxyprogesterone Acetate (Provera) 10 mg BID ORAL 01/13/21 18:00 04/13/21 17:59 01/18/21 17:24 Metoclopramide HCl (Reglan) 5 mg Q6H PRN IVP Nausea & Vomiting 2nd choice 01/15/21 21:15 02/14/21 20:14 Ondansetron HCl (Zofran) 4 mg Q4H PRN IVP Nausea & Vomiting 01/15/21 16:45 02/14/21 16:44 01/16/21 04:52 Pantoprazole (Protonix) 40 mg EVERY 12 HOURS ORAL 01/13/21 09:45 02/12/21 09:44 01/18/21 20:02 Last 24 Hour Vital Signs Date Time Temp Pulse Resp B/P (MAP) Pulse Ox O2 Delivery O2 Flow Rate FiO2 01/19/21 04:00 98.4 72 20 102/66 (78) 97 01/19/21 00:00 98.6 83 20 95/67 (76) 97 01/18/21 21:00 Room Air 01/18/21 20:00 98.8 81 20 105/66 (79) 99 01/18/21 16:00 98.7 73 20 102/63 (76) 98 01/18/21 12:00 98.1 69 19 116/73 (87) 99 01/18/21 09:00 Room Air 01/18/21 08:00 98.6 73 18 122/76 (91) 97 73 01/18/21 04:00 98.6 61 16 114/65 (81) 97 01/18/21 00:00 98.4 87 16 119/67 (84) 98 01/17/21 21:00 Room Air 01/17/21 20:00 98.7 92 18 124/71 (88) 98 01/17/21 16:00 97.7 73 18 112/76 (88) 99 01/17/21 12:00 98.2 78 18 110/71 (84) 98 01/17/21 08:20 Room Air 01/17/21 08:00 97.9 85 16 99/62 (74) 98 Intake and Output 01/18/21 01/19/21 19:00 07:00 Intake Total 780 ml 360 ml Balance 780 ml 360 ml Intake Oral 480 ml 360 ml IV Total 300 ml Labs Test 01/17/21 05:25 01/18/21 05:45 01/19/21 05:30 White Blood Count 6.4 K/UL (4.8-10.8) 6.7 K/UL (4.8-10.8) Red Blood Count 3.52 M/UL (4.20-5.40) 3.65 M/UL (4.20-5.40) Hemoglobin 7.7 G/DL (12.0-16.0) 8.2 G/DL (12.0-16.0) Hematocrit 26.5 % (37.0-47.0) 28.0 % (37.0-47.0) Mean Corpuscular Volume 75 FL (80-99) 77 FL (80-99) Mean Corpuscular Hemoglobin 21.9 PG (27.0-31.0) 22.4 PG (27.0-31.0) Mean Corpuscular Hemoglobin Concent 29.1 G/DL (32.0-36.0) 29.1 G/DL (32.0-36.0) Red Cell Distribution Width 36.2 % (11.6-14.8) 34.7 % (11.6-14.8) Platelet Count 259 K/UL (150-450) 269 K/UL (150-450) Mean Platelet Volume 10.7 FL (6.5-10.1) 9.7 FL (6.5-10.1) Neutrophils (%) (Auto) % (45.0-75.0) 62.8 % (45.0-75.0) Lymphocytes (%) (Auto) % (20.0-45.0) 25.4 % (20.0-45.0) Monocytes (%) (Auto) % (1.0-10.0) 9.3 % (1.0-10.0) Eosinophils (%) (Auto) % (0.0-3.0) 2.2 % (0.0-3.0) Basophils (%) (Auto) % (0.0-2.0) 0.3 % (0.0-2.0) Differential Total Cells Counted 100 Neutrophils % (Manual) 70 % (45-75) Lymphocytes % (Manual) 22 % (20-45) Monocytes % (Manual) 6 % (1-10) Eosinophils % (Manual) 2 % (0-3) Basophils % (Manual) 0 % (0-2) Band Neutrophils 0 % (0-8) Platelet Estimate Adequate Platelet Morphology Normal Polychromasia 1+ Hypochromasia 2+ Poikilocytosis 1+ Anisocytosis 3+ Microcytosis 1+ Ovalocytes Occasional Erythrocyte Sedimentation Rate 95 MM/HR (0-20) Prothrombin Time 11.2 SEC (9.30-11.50) Prothromb Time International Ratio 1.0 (0.9-1.1) Activated Partial Thromboplast Time 35 SEC (23-33) Sodium Level 141 MMOL/L (136-145) 142 MMOL/L (136-145) Potassium Level 3.9 MMOL/L (3.5-5.1) 4.2 MMOL/L (3.5-5.1) Chloride Level 109 MMOL/L (98-107) 110 MMOL/L (98-107) Carbon Dioxide Level 21 MMOL/L (21-32) 21 MMOL/L (21-32) Anion Gap 11 mmol/L (5-15) 11 mmol/L (5-15) Blood Urea Nitrogen 7 mg/dL (7-18) 6 mg/dL (7-18) Creatinine 1.6 MG/DL (0.55-1.30) 1.6 MG/DL (0.55-1.30) Estimat Glomerular Filtration Rate 41.6 mL/min (>60) 41.6 mL/min (>60) Glucose Level 103 MG/DL (74-106) 97 MG/DL (74-106) Lactic Acid Level 0.90 mmol/L (0.4-2.0) Calcium Level 8.2 MG/DL (8.5-10.1) 8.2 MG/DL (8.5-10.1) Total Bilirubin 1.3 MG/DL (0.2-1.0) 0.7 MG/DL (0.2-1.0) Direct Bilirubin 0.6 MG/DL (0.0-0.3) Aspartate Amino Transf (AST/SGOT) 33 U/L (15-37) 27 U/L (15-37) Alanine Aminotransferase (ALT/SGPT) 23 U/L (12-78) 23 U/L (12-78) Alkaline Phosphatase 60 U/L (46-116) 60 U/L (46-116) C-Reactive Protein, Quantitative 14.3 mg/dL (0.00-0.90) 10.1 mg/dL (0.00-0.90) Total Protein 6.3 G/DL (6.4-8.2) 6.4 G/DL (6.4-8.2) Albumin 2.5 G/DL (3.4-5.0) 2.6 G/DL (3.4-5.0) Globulin 3.8 g/dL 3.8 g/dL Albumin/Globulin Ratio 0.7 (1.0-2.7) 0.7 (1.0-2.7) Amylase Level 63 U/L (25-115) Lipase 216 U/L (73-393) Uric Acid 2.8 MG/DL (2.6-7.2) Phosphorus Level 3.0 MG/DL (2.5-4.9) Magnesium Level 2.1 MG/DL (1.8-2.4) Gamma Glutamyl Transpeptidase 34 U/L (5-85) Height (Feet): 5 Height (Inches): 4.00 Weight (Pounds): 169 Objective General: Awake and alert, nad HEENT: NC/AT. EOMI. Cardiovascular: RRR. S1 and S2 normal. No murmur appreciated Resp: Normal work of breathing. No cough, wheezing or crackles appreciated Abdomen: Abdomen is soft, nondistended. Nontender Rectal: No external hemorrhoids, no palpable internal hemorrhoids. ++ Firm stool in vault. Skin: Intact. No abrasions, laceration or rash over the exposed skin MSK: Normal tone and bulk. Moving all extremities Neuro: Awake and alert. Mentating appropriately. Geoffrey Callaway MD Jan 19, 2021 06:41
[2021-01-19 07:08] LABS: ALBUMIN 2.8 G/DL (3.4-5.0); ALBUMIN/GLOBULIN RATIO 0.7 (1.0-2.7); BILIRUBIN,TOTAL 0.7 MG/DL (0.2-1.0); CALCIUM 8.7 MG/DL (8.5-10.1); CREATININE 1.7 MG/DL (0.55-1.30); PHOSPHORUS 3.3 MG/DL (2.5-4.9); POTASSIUM 4.5 MMOL/L (3.5-5.1)
[2021-01-19 08:00] VITALS: BP 100/64
[2021-01-19] MEDS ORDERED: Hydromorphone 0.5mg/0.5ml inj IVP PRN (08:15)
[2021-01-19] MEDS: Docusate 100mg cap ORAL SCH ×3 (08:43→17:42)
--- NOTE | 2021-01-19 11:54 | Nephrology Progress Note ---
Assessment/Plan Problem List: (1) Electrolyte imbalance (2) Hypokalemia (3) Anemia (4) UTI (urinary tract infection) (5) DUB (dysfunctional uterine bleeding) (6) Hypophosphatemia Assessment Hypokalemia Severe anemia UTI History of uterine fibroid History of retinoblastoma Plan January 19: Labs reviewed. Medication list reviewed. Serum creatinine 1.7. Hemoglobin 8.2 stable. Continue per current management. January 18: Labs reviewed. Medication list reviewed. IV fluids discontinued. Potassium supplement discontinued. Serum creatinine 1.6 stable. Hemoglobin is stable. Continue per consultants. January 17: Labs reviewed. Medication list reviewed. Serum creatinine lower at 1.6. Stable from renal standpoint of view. January 16: Hemoglobin higher. Phosphorus level within normal limit. Electrolytes within normal limit. Continue slow hydration. Serum creatinine at 1.7. Continue slow hydration. January 15: CBC reviewed. Hemoglobin higher. No CHEM panel drawn today. Will check electrolytes and serum phosphorus level for tomorrow. Medication list reviewed. Continue per consultants. January 14: Phosphorus supplement as his phosphorus level is critically low. Medication list reviewed. Consultants notes reviewed. Continue per current management. Continue to monitor chemistry panel and hemoglobin and hematocrit. S table from renal standpoint of view. Previously: Potassium supplement Monitor renal parameters electrolytes UTI treatment Anemia work-up Per consultants Subjective ROS Limited/Unobtainable: No Constitutional: Reports: malaise Objective Objective Last 24 Hour Vital Signs Date Time Temp Pulse Resp B/P (MAP) Pulse Ox O2 Delivery O2 Flow Rate FiO2 01/19/21 09:01 Room Air 01/19/21 08:00 97.9 79 20 100/64 (76) 98 01/19/21 04:00 98.4 72 20 102/66 (78) 97 01/19/21 00:00 98.6 83 20 95/67 (76) 97 01/18/21 21:00 Room Air 01/18/21 20:00 98.8 81 20 105/66 (79) 99 01/18/21 16:00 98.7 73 20 102/63 (76) 98 01/18/21 12:00 98.1 69 19 116/73 (87) 99 Intake and Output 01/18/21 01/19/21 19:00 07:00 Intake Total 780 ml 360 ml Balance 780 ml 360 ml Intake Oral 480 ml 360 ml IV Total 300 ml Current Medications Medications (Trade) Dose Ordered Sig/Jacquelin Route PRN Reason Start Time Stop Time Status Last Admin Dose Admin Ceftriaxone Sodium 1 gm/ Dextrose 55 ml @ 110 mls/hr Q24H IVPB 01/14/21 02:00 01/21/21 01:59 01/19/21 02:05 Docusate Sodium (Colace) 100 mg THREE TIMES A DAY ORAL 01/13/21 13:00 02/12/21 12:59 01/19/21 08:43 Folic Acid (Folate) 1 mg DAILY ORAL 01/13/21 13:00 02/12/21 12:59 01/19/21 08:43 Hydromorphone HCl (Dilaudid) 0.5 mg Q3H PRN IVP For Pain 4-6 01/19/21 08:15 01/26/21 08:14 Hydromorphone HCl (Dilaudid) 1 mg Q3H PRN IVP Pain 7-10 01/15/21 15:30 01/22/21 15:29 01/15/21 16:00 Iron Sucrose 100 mg/Sodium Chloride 60 ml @ 240 mls/hr QHS IVPB 01/18/21 21:00 02/12/21 20:59 01/18/21 20:02 Metoclopramide HCl (Reglan) 5 mg Q6H PRN IVP Nausea & Vomiting 2nd choice 01/15/21 21:15 02/14/21 20:14 Ondansetron HCl (Zofran) 4 mg Q4H PRN IVP Nausea & Vomiting 01/15/21 16:45 02/14/21 16:44 01/16/21 04:52 Pantoprazole (Protonix) 40 mg EVERY 12 HOURS ORAL 01/13/21 09:45 02/12/21 09:44 01/19/21 08:43 Laboratory Tests 01/19/21 05:30: White Blood Count 6.8, Red Blood Count 3.80L, Hemoglobin 8.2L, Hematocrit 29.4L, Mean Corpuscular Volume 77L, Mean Corpuscular Hemoglobin 21.7L, Mean Corpuscular Hemoglobin Concent 28.0L, Red Cell Distribution Width 34.2H, Platelet Count 255, Mean Platelet Volume 8.3, Neutrophils (%) (Auto) 68.1, Lymphocytes (%) (Auto) 19.4L, Monocytes (%) (Auto) 10.0, Eosinophils (%) (Auto) 1.9, Basophils (%) (Auto) 0.6, Sodium Level 142, Potassium Level 4.5, Chloride Level 109H, Carbon Dioxide Level 21, Anion Gap 12, Blood Urea Nitrogen 5L, Creatinine 1.7H, Estimat Glomerular Filtration Rate 38.8, Glucose Level 83, Uric Acid 2.8, Calcium Level 8.7, Phosphorus Level 3.3, Magnesium Level 2.3, Total Bilirubin 0.7, Aspartate Amino Transf (AST/SGOT) 17, Alanine Aminotransferase (ALT/SGPT) 21, Alkaline Phosphatase 63, C-Reactive Protein, Quantitative 8.7H, Pro-B-Type Natriuretic Peptide 875H, Total Protein 6.8, Albumin 2.8L, Globulin 4.0, Albumin/Globulin Ratio 0.7L Height (Feet): 5 Height (Inches): 4.00 Weight (Pounds): 169 General Appearance: no apparent distress Objective No change Jaylon Gardner MD Jan 19, 2021 11:54
[2021-01-19 12:00] VITALS: BP 106/71
--- NOTE | 2021-01-19 14:06 | Infectious Diseases Prog Note ---
Assessment/Plan Assessment/Plan IMPRESSION: Hematuria and pyuria, likely UTI. Severe iron deficiency anemia secondary to blood loss. Uterine fibroids. Hypokalemia. History of retinoblastoma. Elevation of bilirubin,improving Elevation of creatinine. Left peroneal vein thrombus RECOMMENDATION: Discontinue ceftriaxone Negative abdominal US & HIDA scan Negative viral hepatitis serologies Subjective ROS Limited/Unobtainable: Yes Constitutional: Reports: no symptoms Respiratory: Reports: no symptoms Gastrointestinal/Abdominal: Reports: no symptoms Genitourinary: Reports: vaginal bleed/discharge Musculoskeletal: Reports: pain, other - both legs Allergies: Coded Allergies: PENICILLINS (Verified Allergy, Severe, Rash, 10/03/17) SULFA (SULFONAMIDE ANTIBIOTICS) (Verified Allergy, Severe, Rash, 10/03/17) Objective Last 24 Hour Vital Signs Date Time Temp Pulse Resp B/P (MAP) Pulse Ox O2 Delivery O2 Flow Rate FiO2 01/19/21 12:00 98.1 81 20 106/71 (83) 98 01/19/21 09:01 Room Air 01/19/21 08:00 97.9 79 20 100/64 (76) 98 01/19/21 04:00 98.4 72 20 102/66 (78) 97 01/19/21 00:00 98.6 83 20 95/67 (76) 97 01/18/21 21:00 Room Air 01/18/21 20:00 98.8 81 20 105/66 (79) 99 01/18/21 16:00 98.7 73 20 102/63 (76) 98 Height (Feet): 5 Height (Inches): 4.00 Weight (Pounds): 169 General Appearance: no acute distress HEENT: mucous membranes moist Respiratory/Chest: lungs clear Cardiovascular: normal rate Abdomen: soft, non tender Extremities: no edema Neurologic/Psychiatric: alert, oriented x 3, responsive Laboratory Tests Test 01/19/21 05:30 White Blood Count 6.8 K/UL (4.8-10.8) Red Blood Count 3.80 M/UL (4.20-5.40) L Hemoglobin 8.2 G/DL (12.0-16.0) L Hematocrit 29.4 % (37.0-47.0) L Mean Corpuscular Volume 77 FL (80-99) L Mean Corpuscular Hemoglobin 21.7 PG (27.0-31.0) L Mean Corpuscular Hemoglobin Concent 28.0 G/DL (32.0-36.0) L Red Cell Distribution Width 34.2 % (11.6-14.8) H Platelet Count 255 K/UL (150-450) Mean Platelet Volume 8.3 FL (6.5-10.1) Neutrophils (%) (Auto) 68.1 % (45.0-75.0) Lymphocytes (%) (Auto) 19.4 % (20.0-45.0) L Monocytes (%) (Auto) 10.0 % (1.0-10.0) Eosinophils (%) (Auto) 1.9 % (0.0-3.0) Basophils (%) (Auto) 0.6 % (0.0-2.0) Sodium Level 142 MMOL/L (136-145) Potassium Level 4.5 MMOL/L (3.5-5.1) Chloride Level 109 MMOL/L (98-107) H Carbon Dioxide Level 21 MMOL/L (21-32) Anion Gap 12 mmol/L (5-15) Blood Urea Nitrogen 5 mg/dL (7-18) L Creatinine 1.7 MG/DL (0.55-1.30) H Estimat Glomerular Filtration Rate 38.8 mL/min (>60) Glucose Level 83 MG/DL (74-106) Uric Acid 2.8 MG/DL (2.6-7.2) Calcium Level 8.7 MG/DL (8.5-10.1) Phosphorus Level 3.3 MG/DL (2.5-4.9) Magnesium Level 2.3 MG/DL (1.8-2.4) Total Bilirubin 0.7 MG/DL (0.2-1.0) Aspartate Amino Transf (AST/SGOT) 17 U/L (15-37) Alanine Aminotransferase (ALT/SGPT) 21 U/L (12-78) Alkaline Phosphatase 63 U/L (46-116) C-Reactive Protein, Quantitative 8.7 mg/dL (0.00-0.90) H Pro-B-Type Natriuretic Peptide 875 pg/mL (0-125) H Total Protein 6.8 G/DL (6.4-8.2) Albumin 2.8 G/DL (3.4-5.0) L Globulin 4.0 g/dL Albumin/Globulin Ratio 0.7 (1.0-2.7) L Current Medications Medications (Trade) Dose Ordered Sig/Jacquelin Route PRN Reason Start Time Stop Time Status Last Admin Dose Admin Ceftriaxone Sodium 1 gm/ Dextrose 55 ml @ 110 mls/hr Q24H IVPB 01/14/21 02:00 01/21/21 01:59 01/19/21 02:05 Docusate Sodium (Colace) 100 mg THREE TIMES A DAY ORAL 01/13/21 13:00 02/12/21 12:59 01/19/21 13:20 Folic Acid (Folate) 1 mg DAILY ORAL 01/13/21 13:00 02/12/21 12:59 01/19/21 08:43 Hydromorphone HCl (Dilaudid) 0.5 mg Q3H PRN IVP For Pain 4-6 01/19/21 08:15 01/26/21 08:14 Hydromorphone HCl (Dilaudid) 1 mg Q3H PRN IVP Pain 7-10 01/15/21 15:30 01/22/21 15:29 01/15/21 16:00 Iron Sucrose 100 mg/Sodium Chloride 60 ml @ 240 mls/hr QHS IVPB 01/18/21 21:00 02/12/21 20:59 01/18/21 20:02 Metoclopramide HCl (Reglan) 5 mg Q6H PRN IVP Nausea & Vomiting 2nd choice 01/15/21 21:15 02/14/21 20:14 Pantoprazole (Protonix) 40 mg EVERY 12 HOURS ORAL 01/13/21 09:45 02/12/21 09:44 01/19/21 08:43 Emory Bermeo MD Jan 19, 2021 14:06
--- NOTE | 2021-01-19 14:46 | Surgery Progress Note ---
Surgery Progress Note Subjective Symptoms: improved, tolerating diet, voiding well, passing flatus, BM, pain decreased Objective Last 24 Hour Vital Signs Date Time Temp Pulse Resp B/P (MAP) Pulse Ox O2 Delivery O2 Flow Rate FiO2 01/19/21 12:00 98.1 81 20 106/71 (83) 98 01/19/21 09:01 Room Air 01/19/21 08:00 97.9 79 20 100/64 (76) 98 01/19/21 04:00 98.4 72 20 102/66 (78) 97 01/19/21 00:00 98.6 83 20 95/67 (76) 97 01/18/21 21:00 Room Air 01/18/21 20:00 98.8 81 20 105/66 (79) 99 01/18/21 16:00 98.7 73 20 102/63 (76) 98 I&O Intake and Output 01/18/21 01/19/21 19:00 07:00 Intake Total 780 ml 360 ml Balance 780 ml 360 ml Intake Oral 480 ml 360 ml IV Total 300 ml Cardiovascular: RSR Respiratory: clear Abdomen: soft, flat, non-tender, present bowel sounds, non-distended Extremities: no edema, no tenderness, no cyanosis Laboratory Tests Test 01/19/21 05:30 White Blood Count 6.8 K/UL (4.8-10.8) Red Blood Count 3.80 M/UL (4.20-5.40) L Hemoglobin 8.2 G/DL (12.0-16.0) L Hematocrit 29.4 % (37.0-47.0) L Mean Corpuscular Volume 77 FL (80-99) L Mean Corpuscular Hemoglobin 21.7 PG (27.0-31.0) L Mean Corpuscular Hemoglobin Concent 28.0 G/DL (32.0-36.0) L Red Cell Distribution Width 34.2 % (11.6-14.8) H Platelet Count 255 K/UL (150-450) Mean Platelet Volume 8.3 FL (6.5-10.1) Neutrophils (%) (Auto) 68.1 % (45.0-75.0) Lymphocytes (%) (Auto) 19.4 % (20.0-45.0) L Monocytes (%) (Auto) 10.0 % (1.0-10.0) Eosinophils (%) (Auto) 1.9 % (0.0-3.0) Basophils (%) (Auto) 0.6 % (0.0-2.0) Sodium Level 142 MMOL/L (136-145) Potassium Level 4.5 MMOL/L (3.5-5.1) Chloride Level 109 MMOL/L (98-107) H Carbon Dioxide Level 21 MMOL/L (21-32) Anion Gap 12 mmol/L (5-15) Blood Urea Nitrogen 5 mg/dL (7-18) L Creatinine 1.7 MG/DL (0.55-1.30) H Estimat Glomerular Filtration Rate 38.8 mL/min (>60) Glucose Level 83 MG/DL (74-106) Uric Acid 2.8 MG/DL (2.6-7.2) Calcium Level 8.7 MG/DL (8.5-10.1) Phosphorus Level 3.3 MG/DL (2.5-4.9) Magnesium Level 2.3 MG/DL (1.8-2.4) Total Bilirubin 0.7 MG/DL (0.2-1.0) Aspartate Amino Transf (AST/SGOT) 17 U/L (15-37) Alanine Aminotransferase (ALT/SGPT) 21 U/L (12-78) Alkaline Phosphatase 63 U/L (46-116) C-Reactive Protein, Quantitative 8.7 mg/dL (0.00-0.90) H Pro-B-Type Natriuretic Peptide 875 pg/mL (0-125) H Total Protein 6.8 G/DL (6.4-8.2) Albumin 2.8 G/DL (3.4-5.0) L Globulin 4.0 g/dL Albumin/Globulin Ratio 0.7 (1.0-2.7) L Plan Problems: (1) Hypokalemia (2) Anemia (3) Electrolyte imbalance (4) DUB (dysfunctional uterine bleeding) (5) UTI (urinary tract infection) (6) Hypophosphatemia (7) Fibroids (8) Abdominal pain Assessment & Plan: 50-year-old female severe anemia from vaginal bleeding from uterine fibroids. Transfuse PRBC. Currently complaining of abdominal pain and tender in the epigastric right upper quadrant region. CT reviewed no significant findings other than stated in CT report. Labs noted T bili elevated direct normal likely from bleeding and heme related. LFTs okay. Potential for cholecystitis given the location of the pain in the examination. Ultrasound ordered and pending. HIDA ordered and pending. Will discuss with the patient and medical teams findings of imaging once available and considerations if necessary for surgery. Thank you for let me participate patient's care will follow with recommendations hida negative us okay okay for diet d/c planning lft's resolved RUQ pain resolved (9) Bacterial conjunctivitis of both eyes Jefe Bond Jan 19, 2021 14:46
[2021-01-19 17:20] VITALS: BP 112/70
[2021-01-19] MEDS: HYDROmorphone 1mg/ml Carpuject IVP PRN (17:43)
[2021-01-19 20:00] VITALS: BP 95/52
[2021-01-19] MEDS: Iron Sucrose 100 MG in NS 55 ML IVPB SCH (20:46)
--- NOTE | 2021-01-19 21:23 | General Progress Note ---
Subjective ROS Limited/Unobtainable: Yes Allergies: Coded Allergies: PENICILLINS (Verified Allergy, Severe, Rash, 10/03/17) SULFA (SULFONAMIDE ANTIBIOTICS) (Verified Allergy, Severe, Rash, 10/03/17) Objective Last 24 Hour Vital Signs Date Time Temp Pulse Resp B/P (MAP) Pulse Ox O2 Delivery O2 Flow Rate FiO2 01/19/21 21:00 Room Air 01/19/21 20:00 98.2 73 18 95/52 (66) 98 01/19/21 17:20 99.6 74 20 112/70 (84) 98 01/19/21 12:00 98.1 81 20 106/71 (83) 98 01/19/21 09:01 Room Air 01/19/21 08:00 97.9 79 20 100/64 (76) 98 01/19/21 04:00 98.4 72 20 102/66 (78) 97 01/19/21 00:00 98.6 83 20 95/67 (76) 97 Intake and Output 01/18/21 01/19/21 19:00 07:00 Intake Total 780 ml 360 ml Balance 780 ml 360 ml Intake Oral 480 ml 360 ml IV Total 300 ml Laboratory Tests 01/19/21 05:30: White Blood Count 6.8, Red Blood Count 3.80L, Hemoglobin 8.2L, Hematocrit 29.4L, Mean Corpuscular Volume 77L, Mean Corpuscular Hemoglobin 21.7L, Mean Corpuscular Hemoglobin Concent 28.0L, Red Cell Distribution Width 34.2H, Platelet Count 255, Mean Platelet Volume 8.3, Neutrophils (%) (Auto) 68.1, Lymphocytes (%) (Auto) 19.4L, Monocytes (%) (Auto) 10.0, Eosinophils (%) (Auto) 1.9, Basophils (%) (Auto) 0.6, Sodium Level 142, Potassium Level 4.5, Chloride Level 109H, Carbon Dioxide Level 21, Anion Gap 12, Blood Urea Nitrogen 5L, Creatinine 1.7H, Estimat Glomerular Filtration Rate 38.8, Glucose Level 83, Uric Acid 2.8, Calcium Level 8.7, Phosphorus Level 3.3, Magnesium Level 2.3, Total Bilirubin 0.7, Aspartate Amino Transf (AST/SGOT) 17, Alanine Aminotransferase (ALT/SGPT) 21, Alkaline Phosphatase 63, C-Reactive Protein, Quantitative 8.7H, Pro-B-Type Natriuretic Peptide 875H, Total Protein 6.8, Albumin 2.8L, Globulin 4.0, Albumin/Globulin Ratio 0.7L Height (Feet): 5 Height (Inches): 4.00 Weight (Pounds): 169 Assessment/Plan Problem List: (1) Hypokalemia ICD Codes: E87.6 - Hypokalemia SNOMED: 79618757 (2) Fibroids ICD Codes: D25.9 - Leiomyoma of uterus, unspecified SNOMED: 40069002 (3) Anemia ICD Codes: D64.9 - Anemia, unspecified SNOMED: 160068007 (4) Electrolyte imbalance ICD Codes: E87.8 - Other disorders of electrolyte and fluid balance, not elsewhere classified SNOMED: 744064937 (5) DUB (dysfunctional uterine bleeding) ICD Codes: N93.8 - Other specified abnormal uterine and vaginal bleeding SNOMED: 98924856 (6) UTI (urinary tract infection) ICD Codes: N39.0 - Urinary tract infection, site not specified SNOMED: 86066776 Status: progressing Assessment/Plan: dc in am check h/h dysfunctional uterine bleeding Jose Garcia MD Jan 19, 2021 21:23
--- NOTE | 2021-01-19 21:25 | General Progress Note ---
Subjective Allergies: Coded Allergies: PENICILLINS (Verified Allergy, Severe, Rash, 10/03/17) SULFA (SULFONAMIDE ANTIBIOTICS) (Verified Allergy, Severe, Rash, 10/03/17) Subjective Feels better less pain tolerating PO Objective Last 24 Hour Vital Signs Date Time Temp Pulse Resp B/P (MAP) Pulse Ox O2 Delivery O2 Flow Rate FiO2 01/19/21 21:00 Room Air 01/19/21 20:00 98.2 73 18 95/52 (66) 98 01/19/21 17:20 99.6 74 20 112/70 (84) 98 01/19/21 12:00 98.1 81 20 106/71 (83) 98 01/19/21 09:01 Room Air 01/19/21 08:00 97.9 79 20 100/64 (76) 98 01/19/21 04:00 98.4 72 20 102/66 (78) 97 01/19/21 00:00 98.6 83 20 95/67 (76) 97 Intake and Output 01/18/21 01/19/21 19:00 07:00 Intake Total 780 ml 360 ml Balance 780 ml 360 ml Intake Oral 480 ml 360 ml IV Total 300 ml Laboratory Tests 01/19/21 05:30: White Blood Count 6.8, Red Blood Count 3.80L, Hemoglobin 8.2L, Hematocrit 29.4L, Mean Corpuscular Volume 77L, Mean Corpuscular Hemoglobin 21.7L, Mean Corpuscular Hemoglobin Concent 28.0L, Red Cell Distribution Width 34.2H, Platelet Count 255, Mean Platelet Volume 8.3, Neutrophils (%) (Auto) 68.1, Lymphocytes (%) (Auto) 19.4L, Monocytes (%) (Auto) 10.0, Eosinophils (%) (Auto) 1.9, Basophils (%) (Auto) 0.6, Sodium Level 142, Potassium Level 4.5, Chloride Level 109H, Carbon Dioxide Level 21, Anion Gap 12, Blood Urea Nitrogen 5L, Creatinine 1.7H, Estimat Glomerular Filtration Rate 38.8, Glucose Level 83, Uric Acid 2.8, Calcium Level 8.7, Phosphorus Level 3.3, Magnesium Level 2.3, Total Bilirubin 0.7, Aspartate Amino Transf (AST/SGOT) 17, Alanine Aminotransferase (ALT/SGPT) 21, Alkaline Phosphatase 63, C-Reactive Protein, Quantitative 8.7H, Pro-B-Type Natriuretic Peptide 875H, Total Protein 6.8, Albumin 2.8L, Globulin 4.0, Albumin/Globulin Ratio 0.7L Height (Feet): 5 Height (Inches): 4.00 Weight (Pounds): 169 Objective NCAT supple CTA RR abd soft, minimal epigastric TTP no edema Assessment/Plan Status: progressing Assessment/Plan: Assessment - RUQ pain and TTP - improved, suspect passed stone/sludge - N/V - resolved - Elevated bili - improving, suspect passed stone/sluge - R/o cholecystitis ---> negative HIDA and US - (+) gallbladder sludge - 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
[2021-01-20] VITALS: BP 102/54
[2021-01-20 06:08] VITALS: BP 111/58
[2021-01-20] MEDS: HYDROmorphone 1mg/ml Carpuject IVP PRN (06:13)
[2021-01-20 08:00] VITALS: BP 113/65
[2021-01-20] MEDS ORDERED: Hydromorphone 0.5mg/0.5ml inj IVP PRN (09:15)
[2021-01-20] MEDS: Docusate 100mg cap ORAL SCH (09:40)
--- NOTE | 2021-01-20 10:31 | Nephrology Progress Note ---
Assessment/Plan Problem List: (1) Electrolyte imbalance (2) Hypokalemia (3) Anemia (4) UTI (urinary tract infection) (5) DUB (dysfunctional uterine bleeding) (6) Hypophosphatemia Assessment Hypokalemia Severe anemia UTI History of uterine fibroid History of retinoblastoma Plan January 20: No labs drawn today. Medication list reviewed. Stable from renal standpoint of view. Will check lab tomorrow if in-house. [facility] with glycerin operator as an outpatient. January 19: Labs reviewed. Medication list reviewed. Serum creatinine 1.7. Hemoglobin 8.2 stable. Continue per current management. January 18: Labs reviewed. Medication list reviewed. IV fluids discontinued. P otassium supplement discontinued. Serum creatinine 1.6 stable. Hemoglobin is stable. Continue per consultants. January 17: Labs reviewed. Medication list reviewed. Serum creatinine lower at 1.6. Stable from renal standpoint of view. January 16: Hemoglobin higher. Phosphorus level within normal limit. Electrolytes within normal limit. Continue slow hydration. Serum creatinine at 1.7. Continue slow hydration. January 15: CBC reviewed. Hemoglobin higher. No CHEM panel drawn today. Will check electrolytes and serum phosphorus level for tomorrow. Medication list reviewed. Continue per consultants. January 14: Phosphorus supplement as his phosphorus level is critically low. Medication list reviewed. Consultants notes reviewed. Continue per current management. Continue to monitor chemistry panel and hemoglobin and hematocrit. Stable from renal standpoint of view. Previously: Potassium supplement Monitor renal parameters electrolytes UTI treatment Anemia work-up Per consultants Subjective ROS Limited/Unobtainable: No Objective Objective Last 24 Hour Vital Signs Date Time Temp Pulse Resp B/P (MAP) Pulse Ox O2 Delivery O2 Flow Rate FiO2 01/20/21 08:00 98.3 67 20 113/65 (81) 96 01/20/21 06:08 98.1 83 20 111/58 (75) 97 01/20/21 00:00 96.6 76 19 102/54 (70) 98 01/19/21 21:00 Room Air 01/19/21 20:00 98.2 73 18 95/52 (66) 98 01/19/21 17:20 99.6 74 20 112/70 (84) 98 01/19/21 12:00 98.1 81 20 106/71 (83) 98 Intake and Output 01/19/21 01/20/21 19:00 07:00 Intake Total 237 ml 360 ml Balance 237 ml 360 ml Intake Oral 237 ml 300 ml IV Total 60 ml # Voids 2 2 Current Medications Medications (Trade) Dose Ordered Sig/Jacquelin Route PRN Reason Start Time Stop Time Status Last Admin Dose Admin Docusate Sodium (Colace) 100 mg THREE TIMES A DAY ORAL 01/13/21 13:00 02/12/21 12:59 01/20/21 09:40 Folic Acid (Folate) 1 mg DAILY ORAL 01/13/21 13:00 02/12/21 12:59 01/20/21 09:41 Hydromorphone HCl (Dilaudid) 0.5 mg Q3H PRN IVP For Pain 4-6 01/19/21 08:15 01/26/21 08:14 Hydromorphone HCl (Dilaudid) 1 mg Q3H PRN IVP Pain 7-10 01/20/21 09:15 01/27/21 09:14 Iron Sucrose 100 mg/Sodium Chloride 60 ml @ 240 mls/hr QHS IVPB 01/18/21 21:00 02/12/21 20:59 01/19/21 20:46 Metoclopramide HCl (Reglan) 5 mg Q6H PRN IVP Nausea & Vomiting 2nd choice 01/15/21 21:15 02/14/21 20:14 Pantoprazole (Protonix) 40 mg EVERY 12 HOURS ORAL 01/13/21 09:45 02/12/21 09:44 01/20/21 09:40 No labs drawn today Height (Feet): 5 Height (Inches): 4.00 Weight (Pounds): 169 General Appearance: no apparent distress Cardiovascular: normal rate Respiratory/Chest: decreased breath sounds Abdomen: distended Objective No change Jaylon Gardner MD Jan 20, 2021 10:30
--- NOTE | 2021-01-20 10:52 | Surgery Progress Note ---
Surgery Progress Note Subjective Symptoms: improved, tolerating diet, voiding well, passing flatus, BM Objective Last 24 Hour Vital Signs Date Time Temp Pulse Resp B/P (MAP) Pulse Ox O2 Delivery O2 Flow Rate FiO2 01/20/21 09:00 Room Air 01/20/21 08:00 98.3 67 20 113/65 (81) 96 01/20/21 06:08 98.1 83 20 111/58 (75) 97 01/20/21 00:00 96.6 76 19 102/54 (70) 98 01/19/21 21:00 Room Air 01/19/21 20:00 98.2 73 18 95/52 (66) 98 01/19/21 17:20 99.6 74 20 112/70 (84) 98 01/19/21 12:00 98.1 81 20 106/71 (83) 98 I&O Intake and Output 01/19/21 01/20/21 19:00 07:00 Intake Total 237 ml 360 ml Balance 237 ml 360 ml Intake Oral 237 ml 300 ml IV Total 60 ml # Voids 2 2 Cardiovascular: RSR Respiratory: clear Abdomen: soft, flat, non-tender, present bowel sounds, non-distended Extremities: no edema, no tenderness, no cyanosis Plan Problems: (1) Hypokalemia (2) Anemia (3) Electrolyte imbalance (4) DUB (dysfunctional uterine bleeding) (5) UTI (urinary tract infection) (6) Hypophosphatemia (7) Fibroids (8) Abdominal pain Assessment & Plan: 50-year-old female severe anemia from vaginal bleeding from uterine fibroids. Transfuse PRBC. Currently complaining of abdominal pain and tender in the epigastric right upper quadrant region. CT reviewed no significant findings other than stated in CT report. Labs noted T bili elevated direct normal likely from bleeding and heme related. LFTs okay. Potential for cholecystitis given the location of the pain in the examination. Ultrasound ordered and pending. HIDA ordered and pending. Will discuss with the patient and medical teams findings of imaging once available and considerations if necessary for surgery. Thank you for let me participate patient's care will follow with recommendations hida negative us okay okay for diet d/c planning lft's resolved RUQ pain resolved plan d/c outpatient f/u with pcp. erp specialist f/u outpatient for consideration of fibroids as cont to bleed intermittently over the years discussed in detail with patient states she understands and will plan to f/u with pcp for erp specialist referral and eval outpatient (9) Bacterial conjunctivitis of both eyes Jefe Bond Jan 20, 2021 10:52
--- NOTE | 2021-01-20 11:10 | Infectious Diseases Prog Note ---
Assessment/Plan Assessment/Plan IMPRESSION: Hematuria and pyuria, likely UTI.treated Severe iron deficiency anemia secondary to blood loss. Uterine fibroids. Hypokalemia. History of retinoblastoma. Elevation of bilirubin,improving Elevation of creatinine. Left peroneal vein thrombus RECOMMENDATION: Observe off of antibiotic Agree with discharge Negative abdominal US & HIDA scan Negative viral hepatitis serologies Subjective ROS Limited/Unobtainable: No Respiratory: Reports: no symptoms Cardiovascular: Reports: no symptoms Gastrointestinal/Abdominal: Reports: no symptoms Genitourinary: Reports: vaginal bleed/discharge Allergies: Coded Allergies: PENICILLINS (Verified Allergy, Severe, Rash, 10/03/17) SULFA (SULFONAMIDE ANTIBIOTICS) (Verified Allergy, Severe, Rash, 10/03/17) Objective Last 24 Hour Vital Signs Date Time Temp Pulse Resp B/P (MAP) Pulse Ox O2 Delivery O2 Flow Rate FiO2 01/20/21 09:00 Room Air 01/20/21 08:00 98.3 67 20 113/65 (81) 96 01/20/21 06:08 98.1 83 20 111/58 (75) 97 01/20/21 00:00 96.6 76 19 102/54 (70) 98 01/19/21 21:00 Room Air 01/19/21 20:00 98.2 73 18 95/52 (66) 98 01/19/21 17:20 99.6 74 20 112/70 (84) 98 01/19/21 12:00 98.1 81 20 106/71 (83) 98 Height (Feet): 5 Height (Inches): 4.00 Weight (Pounds): 169 HEENT: mucous membranes moist Respiratory/Chest: lungs clear Cardiovascular: normal rate Abdomen: soft, non tender Extremities: no edema Neurologic/Psychiatric: alert, responsive Current Medications Medications (Trade) Dose Ordered Sig/Jacquelin Route PRN Reason Start Time Stop Time Status Last Admin Dose Admin Docusate Sodium (Colace) 100 mg THREE TIMES A DAY ORAL 01/13/21 13:00 02/12/21 12:59 01/20/21 09:40 Folic Acid (Folate) 1 mg DAILY ORAL 01/13/21 13:00 02/12/21 12:59 01/20/21 09:41 Hydromorphone HCl (Dilaudid) 0.5 mg Q3H PRN IVP For Pain 4-6 01/19/21 08:15 01/26/21 08:14 Hydromorphone HCl (Dilaudid) 1 mg Q3H PRN IVP Pain 7-10 01/20/21 09:15 01/27/21 09:14 Iron Sucrose 100 mg/Sodium Chloride 60 ml @ 240 mls/hr QHS IVPB 01/18/21 21:00 02/12/21 20:59 01/19/21 20:46 Metoclopramide HCl (Reglan) 5 mg Q6H PRN IVP Nausea & Vomiting 2nd choice 01/15/21 21:15 02/14/21 20:14 Pantoprazole (Protonix) 40 mg EVERY 12 HOURS ORAL 01/13/21 09:45 02/12/21 09:44 01/20/21 09:40 Emory Bermeo MD Jan 20, 2021 11:10
--- NOTE | 2021-01-20 13:03 | General Progress Note ---
Subjective Allergies: Coded Allergies: PENICILLINS (Verified Allergy, Severe, Rash, 10/03/17) SULFA (SULFONAMIDE ANTIBIOTICS) (Verified Allergy, Severe, Rash, 10/03/17) Subjective c/o recurrent epigastric abd pain yesterday unable to eat food Objective Last 24 Hour Vital Signs Date Time Temp Pulse Resp B/P (MAP) Pulse Ox O2 Delivery O2 Flow Rate FiO2 01/20/21 09:00 Room Air 01/20/21 08:00 98.3 67 20 113/65 (81) 96 01/20/21 06:08 98.1 83 20 111/58 (75) 97 01/20/21 00:00 96.6 76 19 102/54 (70) 98 01/19/21 21:00 Room Air 01/19/21 20:00 98.2 73 18 95/52 (66) 98 01/19/21 17:20 99.6 74 20 112/70 (84) 98 Intake and Output 01/19/21 01/20/21 19:00 07:00 Intake Total 237 ml 360 ml Balance 237 ml 360 ml Intake Oral 237 ml 300 ml IV Total 60 ml # Voids 2 2 Height (Feet): 5 Height (Inches): 4.00 Weight (Pounds): 169 Objective NCAT supple CTA RR abd soft, (+) epigastric TTP no edema Assessment/Plan Status: progressing Assessment/Plan: Assessment - Epigastric, RUQ pain and TTP - N/V - resolved - Elevated bili - resolved - R/o cholecystitis ---> negative HIDA and US - (+) gallbladder sludge - Anemia, presumed due to [employer] loss, OB (-) - fibroids Recommendations - EGD tomorrow am or as outpatient per PMD referral process if discharged - IVF - abx per ID - follow labs and exam - PPI Eligio Ribera MD Jan 20, 2021 13:03
--- NOTE | 2021-01-20 13:06 | Hematology/Onc Progress Note ---
Assessment/Plan Assessment/Plan Assessment and Recs # Nonocclusive thrombus in the left peroneal vein-->THIS IS A DISTAL VEIN --> will stop provera as is hypercoagulable --> Do not recommend ivcfilter since is a small, distal isolated vein --> pain of bilateral legs unlikely from this blood clot --> to see obgyn toña for potential surgery --> continue iv iron # Anemia of iron deficiency with a history of heavy menstruation with uterine fibroids -> in the past recommend at [facility], may still need procedure -> anemia panel reviewed --> started on iv iron --> occult was negative --> hgb 5.4-->5.6->7.6->8.2 --> on provera as per chef assistant-->now dc # Leukocytosis likely due to reactive process --> wbc 16-->9.7 --> continue on abx ctx --> smear has been reviewed # Abd pain RUQ --> pending hida scan # UTI (urinary tract infection) --> continue for abx ctx # Hypokalemia --> replete with k # Dvt ppx scds Appreciate consultation and dw Rn Subjective Constitutional: Denies: no symptoms, chills, fever, malaise, weakness, other HEENT: Denies: no symptoms, eye pain, blurred vision, tearing, double vision, ear pain, ear discharge, nose pain, nose congestion, throat pain, throat swelling, mouth pain, mouth swelling, other Cardiovascular: Denies: no symptoms, chest pain, edema, irregular heart rate, lightheadedness, palpitations, syncope, other Respiratory: Denies: no symptoms, cough, shortness of breath, SOB with excertion, SOB at rest, sputum, wheezing, other Genitourinary: Denies: no symptoms, burning, discharge, frequency, flank pain, hematuria, incontinence, pain, urgency, other Neurologic/Psychiatric: Denies: no symptoms, anxiety, depressed, emotional problems, headache, numbness, paresthesia, pre-existing deficit, seizure, tingling, tremors, weakness, other Endocrine: Denies: no symptoms, excessive sweating, flushing, intolerance to cold, intolerance to heat, increased hunger, increased thirst, increased urine, unexplained weight gain, unexplained weight loss, other Allergies: Coded Allergies: PENICILLINS (Verified Allergy, Severe, Rash, 10/03/17) SULFA (SULFONAMIDE ANTIBIOTICS) (Verified Allergy, Severe, Rash, 10/03/17) Subjective 01/14 meds reviewed, labs noted, no bleeding, no major events, hgb remains low 01/15 on provera bid therapy, as per chef assistant, to f/u outpatient, cbc pending 01/16 on provera, hida scan pending, labs to be repeated today 01/18 labs are noted, no bleeding, hgb 8.2, no hemolysis, meds noted 01/19 had a long discussion re seeing obgyn, stopping provera and nonocclusive clot 01/20 labs reviewed, meds noted, seen by chef assistant, provera stopped, for dc soon Objective Objective Current Medications Medications (Trade) Dose Ordered Sig/Jacquelin Route PRN Reason Start Time Stop Time Status Last Admin Dose Admin Docusate Sodium (Colace) 100 mg THREE TIMES A DAY ORAL 01/13/21 13:00 02/12/21 12:59 01/20/21 09:40 Folic Acid (Folate) 1 mg DAILY ORAL 01/13/21 13:00 02/12/21 12:59 01/20/21 09:41 Hydromorphone HCl (Dilaudid) 0.5 mg Q3H PRN IVP For Pain 4-6 01/19/21 08:15 01/26/21 08:14 Hydromorphone HCl (Dilaudid) 1 mg Q3H PRN IVP Pain 7-10 01/20/21 09:15 01/27/21 09:14 Iron Sucrose 100 mg/Sodium Chloride 60 ml @ 240 mls/hr QHS IVPB 01/18/21 21:00 02/12/21 20:59 01/19/21 20:46 Metoclopramide HCl (Reglan) 5 mg Q6H PRN IVP Nausea & Vomiting 2nd choice 01/15/21 21:15 02/14/21 20:14 Pantoprazole (Protonix) 40 mg EVERY 12 HOURS ORAL 01/13/21 09:45 02/12/21 09:44 01/20/21 09:40 Last 24 Hour Vital Signs Date Time Temp Pulse Resp B/P (MAP) Pulse Ox O2 Delivery O2 Flow Rate FiO2 01/20/21 09:00 Room Air 3/16/21 08:00 98.3 67 20 113/65 (81) 96 01/20/21 06:08 98.1 83 20 111/58 (75) 97 01/20/21 00:00 96.6 76 19 102/54 (70) 98 01/19/21 21:00 Room Air 01/19/21 20:00 98.2 73 18 95/52 (66) 98 01/19/21 17:20 99.6 74 20 112/70 (84) 98 01/19/21 12:00 98.1 81 20 106/71 (83) 98 01/19/21 09:01 Room Air 01/19/21 08:00 97.9 79 20 100/64 (76) 98 01/19/21 04:00 98.4 72 20 102/66 (78) 97 01/19/21 00:00 98.6 83 20 95/67 (76) 97 01/18/21 21:00 Room Air 01/18/21 20:00 98.8 81 20 105/66 (79) 99 01/18/21 16:00 98.7 73 20 102/63 (76) 98 Intake and Output 01/19/21 01/20/21 18:59 06:59 Intake Total 237 ml 360 ml Balance 237 ml 360 ml Intake Oral 237 ml 300 ml IV Total 60 ml # Voids 2 2 Labs Test 01/18/21 05:45 01/19/21 05:30 White Blood Count 6.7 K/UL (4.8-10.8) 6.8 K/UL (4.8-10.8) Red Blood Count 3.65 M/UL (4.20-5.40) 3.80 M/UL (4.20-5.40) Hemoglobin 8.2 G/DL (12.0-16.0) 8.2 G/DL (12.0-16.0) Hematocrit 28.0 % (37.0-47.0) 29.4 % (37.0-47.0) Mean Corpuscular Volume 77 FL (80-99) 77 FL (80-99) Mean Corpuscular Hemoglobin 22.4 PG (27.0-31.0) 21.7 PG (27.0-31.0) Mean Corpuscular Hemoglobin Concent 29.1 G/DL (32.0-36.0) 28.0 G/DL (32.0-36.0) Red Cell Distribution Width 34.7 % (11.6-14.8) 34.2 % (11.6-14.8) Platelet Count 269 K/UL (150-450) 255 K/UL (150-450) Mean Platelet Volume 9.7 FL (6.5-10.1) 8.3 FL (6.5-10.1) Neutrophils (%) (Auto) 62.8 % (45.0-75.0) 68.1 % (45.0-75.0) Lymphocytes (%) (Auto) 25.4 % (20.0-45.0) 19.4 % (20.0-45.0) Monocytes (%) (Auto) 9.3 % (1.0-10.0) 10.0 % (1.0-10.0) Eosinophils (%) (Auto) 2.2 % (0.0-3.0) 1.9 % (0.0-3.0) Basophils (%) (Auto) 0.3 % (0.0-2.0) 0.6 % (0.0-2.0) Sodium Level 142 MMOL/L (136-145) 142 MMOL/L (136-145) Potassium Level 4.2 MMOL/L (3.5-5.1) 4.5 MMOL/L (3.5-5.1) Chloride Level 110 MMOL/L (98-107) 109 MMOL/L (98-107) Carbon Dioxide Level 21 MMOL/L (21-32) 21 MMOL/L (21-32) Anion Gap 11 mmol/L (5-15) 12 mmol/L (5-15) Blood Urea Nitrogen 6 mg/dL (7-18) 5 mg/dL (7-18) Creatinine 1.6 MG/DL (0.55-1.30) 1.7 MG/DL (0.55-1.30) Estimat Glomerular Filtration Rate 41.6 mL/min (>60) 38.8 mL/min (>60) Glucose Level 97 MG/DL (74-106) 83 MG/DL (74-106) Uric Acid 2.8 MG/DL (2.6-7.2) 2.8 MG/DL (2.6-7.2) Calcium Level 8.2 MG/DL (8.5-10.1) 8.7 MG/DL (8.5-10.1) Phosphorus Level 3.0 MG/DL (2.5-4.9) 3.3 MG/DL (2.5-4.9) Magnesium Level 2.1 MG/DL (1.8-2.4) 2.3 MG/DL (1.8-2.4) Total Bilirubin 0.7 MG/DL (0.2-1.0) 0.7 MG/DL (0.2-1.0) Gamma Glutamyl Transpeptidase 34 U/L (5-85) Aspartate Amino Transf (AST/SGOT) 27 U/L (15-37) 17 U/L (15-37) Alanine Aminotransferase (ALT/SGPT) 23 U/L (12-78) 21 U/L (12-78) Alkaline Phosphatase 60 U/L (46-116) 63 U/L (46-116) C-Reactive Protein, Quantitative 10.1 mg/dL (0.00-0.90) 8.7 mg/dL (0.00-0.90) Total Protein 6.4 G/DL (6.4-8.2) 6.8 G/DL (6.4-8.2) Albumin 2.6 G/DL (3.4-5.0) 2.8 G/DL (3.4-5.0) Globulin 3.8 g/dL 4.0 g/dL Albumin/Globulin Ratio 0.7 (1.0-2.7) 0.7 (1.0-2.7) Pro-B-Type Natriuretic Peptide 875 pg/mL (0-125) Height (Feet): 5 Height (Inches): 4.00 Weight (Pounds): 169 Objective General: Awake and alert, nad HEENT: NC/AT. EOMI. Cardiovascular: RRR. S1 and S2 normal. No murmur appreciated Resp: Normal work of breathing. No cough, wheezing or crackles appreciated Abdomen: Abdomen is soft, nondistended. Nontender Rectal: No external hemorrhoids, no palpable internal hemorrhoids. ++ Firm stool in vault. Skin: Intact. No abrasions, laceration or rash over the exposed skin MSK: Normal tone and bulk. Moving all extremities Neuro: Awake and alert. Mentating appropriately. Geoffrey Callaway MD Jan 20, 2021 13:06
--- NOTE | 2021-01-21 13:10 | Discharge Summary ---
Discharge Summary Discharge Summary _ Date of admission: 01/13/2021 Date of discharge: 01/20/[address] Garcia History of Present Illness and Brief Hospital Course Ms. Solo is a 50-year-old female with past medical history of uterine fibroids who presented to the ED for evaluation of weakness and hematuria. She was at [facility] last month requiring transfusion for low hemoglobin reportedly 3.9. During this visit, patient's hemoglobin level returned low at 5.4. Patient was transfused. Patient was also found to have urinalysis concerning for UTI. Patient was given ceftriaxone. Patient was apparently capitated to [facility] but patient deemed unstable for transfer by capitated facility. Patient was approved for admission at [facility]. Patient was admitted to the hospital for further management. Patient was evaluated by a director ambulatory. Patient was not found to be actively bleeding. Patient was continued on Provera given history of heavy menstruation with uterine fibroids. Patient was also started on IV iron. Stool occult blood was negative. Patient's hemoglobin level improved and remained stable after transfusion. Patient reported bilateral leg pain. Patient was evaluated with a venous duplex ultrasound of legs. Patient was identified to have a nonocclusive thrombus in the left peroneal vein. Provera was stopped as it was hypercoagulable. IVC filter was not recommended since this was a small, distal isolated vein. Patient also complained of recurrent epigastric abdominal pain especially in the epigastric and right upper quadrant. Total bilirubin was elevated. Abdominal ultrasound demonstrated sludge-filled gallbladder. HIDA scan was unremarkable without sign of cystic duct obstruction. Patient was advised to schedule outpatient EGD soon after discharge. Patient was also advised to return to ER if pain returns/persists. Patient was medically stable for discharge and was discharged home on 01/20/2021. Patient is to follow-up with her PCP and get a referral to see a director ambulatory. Consultants: Surgery Dr. Bond Gastroenterology Dr. Ribera Infectious disease Dr. Bermeo Gynecology Dr. Olivares Nephrology Dr. Maldonado Hematology oncology Dr. Callaway Discharge Condition Stable Discharge Activity As tolerated, no heavy lifting Discharge Diet Regular Final diagnoses Nonocclusive thrombus in the left peroneal vein Anemia of iron deficiency with history of heavy menstruation with uterine fibroids Uterine fibroids Leukocytosis Hematuria Pyuria UTI Hypokalemia History of retinoblastoma Elevated bilirubin Dysfunctional uterine bleeding Hypophosphatemia I have been assigned to dictate discharge summary for this account. I was not involved in the patient's management Elroy Davis Jan 21, 2021 13:10
--- NOTE | 2021-01-21 16:41 | Cardiology Report ---
APPROVED REPORT EKG Measurement Heart [id number] <Conclusion> Normal sinus rhythm Nonspecific T wave abnormality Abnormal ECG
== END 2021-01-20 14:07 | disposition home or self-care (01) | DRG 663 ==
LOC: EMR 00:31 → 4E 04:09 → EDBEDREQ 04:20 → 4E 04:58
PROC: 30233N1 Transfusion of Nonautologous Red Blood Cells into Peripheral Vein, Percutaneous Approach (ICD-10-PCS; principal; 2021-01-13)
DX: D50.0 Iron deficiency anemia secondary to blood loss (chronic) (principal); D25.9 Leiomyoma of uterus, unspecified; N17.9 Acute kidney failure, unspecified; I82.452 Acute embolism and thrombosis of left peroneal vein; N39.0 Urinary tract infection, site not specified; E87.6 Hypokalemia; E83.39 Other disorders of phosphorus metabolism; N93.8 Other specified abnormal uterine and vaginal bleeding; H10.89 Other conjunctivitis; Z88.0 Allergy status to penicillin; Z88.2 Allergy status to sulfonamides; H54.61 Unqualified visual loss, right eye, normal vision left eye; H10.9 Unspecified conjunctivitis
CPT/HCPCS: 36415; 74176; 76705; 78266; 80048; 80053; 80061; 81003; 81025; 82150; 82248; 82270; 82607; 82728; 82746; 82977; 83540; 83550; 83605; 83690; 83735; 83880; 84100; 84443; 84484; 84550; 85007; 85025; 85610; 85651; 85730; 86140; 86705; 86709; 86803; 86850; 86870; 86900; 86901; 86904; 86920; 87086; 87340; 93005; 93970; 96361; 96365; 96367; 99291; C9399; J2405; J2765; J7030; J8499